=== PATIENT | female | born 1995 | race American Indian/Alaskan Native ===

== ENCOUNTER 2019-02-17 10:45 | Inpatient (IN) | payer BC, MEDICAID ==
[2019-02-17] MEDS ORDERED: NACL 0.9% 1000 ML 1,000 ML IV ONE ×3 (10:51→11:22)
[2019-02-17] MEDS ORDERED: ZOFRAN IV ONE ×2 (11:04→11:22)
[2019-02-17] MEDS ORDERED: DILAUDID IV ONE ×2 (11:23→13:50)
[2019-02-17 11:52] LABS: Amorphous Crystals,Urine Few; Bacteria,Urine 1+ /HPF (Negative); Bilirubin,Urine NEG (Negative); Blood,Urine NEG (Negative); Color,Urine Amber (Yellow); Mucus,Urine 3+ /HPF
--- NOTE | 2019-02-17 11:59 | Emergency Department Report ---
ED Abdominal Pain HPI - General Chief Complaint: Abdominal Pain Stated Complaint: STOMACH PAIN/SWELLING/VOMITTING Time Seen by Provider: 02/17/19 11:04 Source: patient, family, old records reviewed Mode of arrival: Ambulatory Limitations: Other (patient is deaf) - History of Present Illness Initial Comments: 24-year-old female with the small bowel obstruction and perastomal hernia treated with loop ileostomy takedown and small bowel resection with primary anastomosis on January [address] Hurst general surgeon for this hospital with complaints of abdominal distention nausea, and vomiting. 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 Patient has had abdominal distention and progressive worsened for the last 2-3 days. Today she has worsening cramping abdominal abdominal pain rates it 8/10 in intensity and worse with palpation. Today she also developed vomiting. Last bowel movement was yesterday. Decreased by mouth intake reported. No fever. Severity scale (0 -10): 8 - Related Data Home Medications Medication Instructions Recorded Confirmed Last Taken Ibuprofen 600 mg PO Q6HRT PRN 02/17/19 02/17/19 Unknown Previous Rx's Medication Instructions Recorded Last Taken Type Bisacodyl [Dulcolax suppos] 10 mg [place] Q72H PRN #10 supp.rect 01/30/19 Unknown Rx Glycerin Adult 2 gm 1 supp [place] QDAY PRN #30 supp.rect 01/30/19 Unknown Rx Allergies Allergy/AdvReac Type Severity Reaction Status Date / Time No Known Allergies Allergy Verified 02/17/19 10:46 ED Review of Systems ROS: Stated complaint: STOMACH PAIN/SWELLING/VOMITTING Other details as noted in HPI Comment: All other systems reviewed and negative ED Past Medical Hx - Past Medical History Hx Hypertension: No Hx Heart Attack/AMI: No Hx Liver Disease: No Hx Renal Disease: No Hx Seizures: No Hx Asthma: No Hx HIV: No Additional medical history: deaf, reocurring volvulus - Surgical History Additional Surgical History: colostomy x 2 - Social History Smoking Status: Never Smoker Substance Use Type: None - Medications Home Medications: Home Medications Medication Instructions Recorded Confirmed Last Taken Type Bisacodyl [Dulcolax suppos] 10 mg [place] Q72H PRN #10 supp.rect 01/30/19 02/17/19 Unknown Rx Glycerin Adult 2 gm 1 supp [place] QDAY PRN #30 supp.rect 01/30/19 02/17/19 Unknown Rx Ibuprofen 600 mg PO Q6HRT PRN 02/17/19 02/17/19 Unknown History ED Physical Exam - General Limitations: No Limitations - Other Other exam information: General: No limitations, patient is alert in no acute distress Head exam: Atraumatic, normocephalic Eyes exam: Normal appearance, pupils equal reactive to light, extraocular movem ents intact ENT: Moist mucous membrane, normal oropharynx Neck exam: Normal inspection, full range of motion, no meningismus nontender Respiratory exam: Clear to auscultation bilateral, no wheezes, rales, crackles Cardiovascular: Tachycardic regular rhythm Abdomen: Soft, distended abdomen, diminished bowel sounds, right sided ELIDIA drain, Midline Vertical surgical scar, denies tenderness greatest in the lower abdomen Extremity: Full range of motion normal inspection no deformity Back: Normal Inspection, full range of motion, no tenderness Neurologic: Alert, oriented x3, cranial nerves intact, no motor or sensory deficit Psychiatric: normal affect, normal mood Skin: Warm, dry, intact ED Course Vital Signs 02/17/19 02/17/19 02/17/19 10:50 11:20 13:24 Temperature 98.3 F 97.7 F Pulse Rate 120 H 116 H 112 H Respiratory 20 17 23 Rate Blood Pressure 108/77 Blood Pressure 102/65 122/69 [Left] O2 Sat by Pulse 100 95 100 Oximetry - Consultations Consultation #1: 02/17/19 14:58 dr hurst to admit, in ED assessing pt ED Medical Decision Making - Lab Data Result diagrams: 02/17/19 12:04 02/17/19 12:04 Lab Results 02/17/19 02/17/19 02/17/19 Range/Units 11:21 12:04 12:04 WBC 7.6 (4.5-11.0) K/mm3 RBC 4.31 (3.65-5.03) M/mm3 Hgb 13.6 (10.1-14.3) gm/dl Hct 39.4 (30.3-42.9) % MCV 91 (79-97) fl MCH 32 (28-32) pg MCHC 35 H (30-34) % RDW 13.8 (13.2-15.2) % Plt Count 208 (140-440) K/mm3 Lymph % (Auto) 4.3 L (13.4-35.0) % [place] % (Auto) 6.3 (0.0-7.3) % Eos % (Auto) 1.9 (0.0-4.3) % Baso % (Auto) 0.3 (0.0-1.8) % Lymph # 0.3 L (1.2-5.4) K/mm3 [place]owell # 0.5 (0.0-0.8) K/mm3 Eos # 0.1 (0.0-0.4) K/mm3 Baso # 0.0 (0.0-0.1) K/mm3 Seg Neutrophils % 87.2 H (40.0-70.0) % Seg Neutrophils # 6.6 (1.8-7.7) K/mm3 Sodium 134 L (137-145) mmol/L Potassium 4.7 (3.6-5.0) mmol/L Chloride 99.6 (98-107) mmol/L Carbon Dioxide 20 L (22-30) mmol/L Anion Gap 19 mmol/L BUN 8 (7-17) mg/dL Creatinine 0.5 L (0.7-1.2) mg/dL Estimated GFR > 60 ml/min BUN/Creatinine Ratio 16 % Glucose 112 H (65-100) mg/dL Calcium 8.9 (8.4-10.2) mg/dL Magnesium (1.7-2.3) mg/dL Total Bilirubin 1.20 (0.1-1.2) mg/dL AST 16 (5-40) units/L ALT 8 (7-56) units/L Alkaline Phosphatase 57 (35-129) units/L Total Protein 7.4 (6.3-8.2) g/dL Albumin 3.6 L (3.9-5) g/dL Albumin/Globulin Ratio 0.9 % Lipase (13-60) units/L HCG, Qual (Negative) Urine Color [place] (Yellow) Urine Turbidity Cloudy (Clear) Urine pH 5.0 (5.0-7.0) Ur Specific [place] 1.038 H (1.003-1.030) Urine Protein 100 mg/dl (Negative) mg/dL Urine Glucose (UA) Neg (Negative) mg/dL Urine Ketones 20 (Negative) mg/dL Urine Blood Neg (Negative) Urine Nitrite Neg (Negative) Urine Bilirubin Neg (Negative) Urine Urobilinogen 2.0 (<2.0) mg/dL Ur Leukocyte Esterase Sm (Negative) Urine WBC (Auto) 12.0 H (0.0-6.0) /HPF Urine RBC (Auto) 5.0 (0.0-6.0) /HPF U Epithel Cells (Auto) 8.0 (0-13.0) /HPF Urine Bacteria (Auto) 1+ (Negative) /HPF Amorphous Crystals Few Urine Mucus 3+ /HPF Urine HCG, Qual (Negative) 02/17/19 02/17/19 02/17/19 Range/Units 12:04 12:04 12:04 WBC (4.5-11.0) K/mm3 RBC (3.65-5.03) M/mm3 Hgb (10.1-14.3) gm/dl Hct (30.3-42.9) % MCV (79-97) fl MCH (28-32) pg MCHC (30-34) % RDW (13.2-15.2) % Plt Count (140-440) K/mm3 Lymph % (Auto) (13.4-35.0) % [place]cdowell % (Auto) (0.0-7.3) % Eos % (Auto) (0.0-4.3) % Baso % (Auto) (0.0-1.8) % Lymph # (1.2-5.4) K/mm3 [place] # (0.0-0.8) K/mm3 Eos # (0.0-0.4) K/mm3 Baso # (0.0-0.1) K/mm3 Seg Neutrophils % (40.0-70.0) % Seg Neutrophils # (1.8-7.7) K/mm3 Sodium (137-145) mmol/L Potassium (3.6-5.0) mmol/L Chloride (98-107) mmol/L Carbon Dioxide (22-30) mmol/L Anion Gap mmol/L BUN (7-17) mg/dL Creatinine (0.7-1.2) mg/dL Estimated GFR ml/min BUN/Creatinine Ratio % Glucose (65-100) mg/dL Calcium (8.4-10.2) mg/dL Magnesium 1.90 (1.7-2.3) mg/dL Total Bilirubin (0.1-1.2) mg/dL AST (5-40) units/L ALT (7-56) units/L Alkaline Phosphatase (35-129) units/L Total Protein (6.3-8.2) g/dL Albumin (3.9-5) g/dL Albumin/Globulin Ratio % Lipase 32 (13-60) units/L HCG, Qual Negative (Negative) Urine Color (Yellow) Urine Turbidity (Clear) Urine pH (5.0-7.0) Ur Specific [place] (1.003-1.030) Urine Protein (Negative) mg/dL Urine Glucose (UA) (Negative) mg/dL Urine Ketones (Negative) mg/dL Urine Blood (Negative) Urine Nitrite (Negative) Urine Bilirubin (Negative) Urine Urobilinogen (<2.0) mg/dL Ur Leukocyte Esterase (Negative) Urine WBC (Auto) (0.0-6.0) /HPF Urine RBC (Auto) (0.0-6.0) /HPF U Epithel Cells (Auto) (0-13.0) /HPF Urine Bacteria (Auto) (Negative) /HPF Amorphous Crystals Urine Mucus /HPF Urine HCG, Qual (Negative) 02/17/19 Range/Units 12:30 WBC (4.5-11.0) K/mm3 RBC (3.65-5.03) M/mm3 Hgb (10.1-14.3) gm/dl Hct (30.3-42.9) % MCV (79-97) fl MCH (28-32) pg MCHC (30-34) % RDW (13.2-15.2) % Plt Count (140-440) K/mm3 Lymph % (Auto) (13.4-35.0) % [place] % (Auto) (0.0-7.3) % Eos % (Auto) (0.0-4.3) % Baso % (Auto) (0.0-1.8) % Lymph # (1.2-5.4) K/mm3 [place] # (0.0-0.8) K/mm3 Eos # (0.0-0.4) K/mm3 Baso # (0.0-0.1) K/mm3 Seg Neutrophils % (40.0-70.0) % Seg Neutrophils # (1.8-7.7) K/mm3 Sodium (137-145) mmol/L Potassium (3.6-5.0) mmol/L Chloride (98-107) mmol/L Carbon Dioxide (22-30) mmol/L Anion Gap mmol/L BUN (7-17) mg/dL Creatinine (0.7-1.2) mg/dL Estimated GFR ml/min BUN/Creatinine Ratio % Glucose (65-100) mg/dL Calcium (8.4-10.2) mg/dL Magnesium (1.7-2.3) mg/dL Total Bilirubin (0.1-1.2) mg/dL AST (5-40) units/L ALT (7-56) units/L Alkaline Phosphatase (35-129) units/L Total Protein (6.3-8.2) g/dL Albumin (3.9-5) g/dL Albumin/Globulin Ratio % Lipase (13-60) units/L HCG, Qual (Negative) Urine Color (Yellow) Urine Turbidity (Clear) Urine pH (5.0-7.0) Ur Specific [place] (1.003-1.030) Urine Protein (Negative) mg/dL Urine Glucose (UA) (Negative) mg/dL Urine Ketones (Negative) mg/dL Urine Blood (Negative) Urine Nitrite (Negative) Urine Bilirubin (Negative) Urine Urobilinogen (<2.0) mg/dL Ur Leukocyte Esterase (Negative) Urine WBC (Auto) (0.0-6.0) /HPF Urine RBC (Auto) (0.0-6.0) /HPF U Epithel Cells (Auto) (0-13.0) /HPF Urine Bacteria (Auto) (Negative) /HPF Amorphous Crystals Urine Mucus /HPF Urine HCG, Qual Negative (Negative) - Radiology Data Radiology results: report reviewed PROCEDURE: CT ABDOMEN PELVIS W CON, XR ABD SERIES W CXR 1V TECHNIQUE: Computerized axial tomography of the abdomen and pelvis was performed after the IV injection of iodinated nonionic contrast. Coronal and sagittal reconstructed imaging provided. Acute abdominal series. CT DOSE LENGTH PRODUCT: 358.1 mGy-cm. HISTORY: post op sm bowel resection w/anastomosis, pain, COMPARISONS: CT abdomen pelvis January 21, 2019. FINDINGS: ACUTE ABDOMINAL RADIOGRAPH: Lungs are clear. Markedly small bowel distention suggest obstruction. No obvious pneumatosis. No pneumoperitoneum. No air-fluid levels. No suspicious calcifications overlie the renal shadows. Scoliosis. CT ABDOMEN PELVIS: Abdomen: Series 2:72-1 07 demonstrates an abrupt transition point to proximally dilated small bowel loops there is a several of bowel loops which may represent a stricture, partial volvulus or internal hernia market distention of the bowel loops proximal to this transition point.. Fluid stool in the remaining colon down to the rectum. Nearby anastomosis and surgical sutures identified. Takedown of previous right lower quadrant ostomy with postsurgical changes in the right lower quadrant soft tissue identified. Mild mesenteric stranding noted. Moderate free fluid throughout the abdomen and pelvis identified. No obvious pneumatosis or free air at this time. No obvious abscess at this time. Few prominent mesenteric lymph nodes may be reactive. Liver, gallbladder, stomach, spleen, pancreas, and adrenals are unremarkable. Elevated left hemidiaphragm noted. Lung bases are otherwise unremarkable. IVC is unremarkable. No aortic aneurysm or dissection. No periaortic or retroperitoneal mass or adenopathy. RLQ percutaneous catheter crosses midline with the tip in the left lower quadrant. Pelvis: Moderate to marked free fluid in the pelvis. Limited images of the uterus are unremarkable. Bladder: Unremarkable. No wall thickening. There is no pelvic mass or adenopathy. Inguinal regions are unremarkable. Bones: No suspicious osseous lesions on this limited examination of the skeleton. Metastatic disease better evaluated with bone scan. IMPRESSION: * Bowel obstruction. Markedly distended proximal small bowel loops with abrupt transition point near the anastomosis which could represent scar tissue, internal hernia, or a partial volvulus. No pneumatosis or pneumoperitoneum noted at this time. * Mesenteric stranding and moderate free fluid in the abdomen and pelvis. * 02/17/2019 at 1146 PT: I, Mike Colon MD, discussed the findings over the phone with Dr. Hurst - Medical Decision Making Zosyn provided given urine leukocytosis Heart rate improvement with pain control and IV fluids CT suggests recurrent obstruction. Patient to be admitted to surgical service - Differential Diagnosis obstruction, postoperative infection, dehydration, ileus Critical Care Time: No Critical care attestation.: If time is entered above; I have spent that time in minutes in the direct care of this critically ill patient, excluding procedure time. ED Disposition Clinical Impression: Dehydration, Urine WBC increased, History of abdominal surgery Intestinal obstruction Qualifiers: Intestinal obstruction type: other intestinal obstruction Intestinal obstruction extent: partial Qualified Code(s): K56.690 - Other partial intestinal obstruction Disposition: DC-09 OP ADMIT IP TO THIS HOSP Is pt being admited?: Yes Condition: Stable Time of Disposition: 15:00 (DR hurst)
[2019-02-17] MEDS ORDERED: ZOSYN/NS 4.5GM/100ML 4.5 GM/100 ML VIAL IV ONE (12:17)
[2019-02-17 12:25] LABS: Basophils % (Auto) 0.3 % (0.0-1.8); Eosinophils # (Auto) 0.1 K/mm3 (0.0-0.4); Eosinophils % (Auto) 1.9 % (0.0-4.3); Hematocrit 39.4 % (30.3-42.9); Hemoglobin 13.6 gm/dl (10.1-14.3); Lymphocytes # (Auto) 0.3 K/mm3 (1.2-5.4); Lymphocytes % (Auto) 4.3 % (13.4-35.0); Mean Corpuscular HGB Conc 35 % (30-34); Mean Corpuscular Volume 91 fl (79-97); Monocytes # (Auto) 0.5 K/mm3 (0.0-0.8); Monocytes % (Auto) 6.3 % (0.0-7.3); Platelet Count 208 K/mm3 (140-440); Red Blood Count 4.31 M/mm3 (3.65-5.03); Red Cell Distribution Width 13.8 % (13.2-15.2)
[2019-02-17 12:38] LABS: HCG Qualitative,Urine Negative (Negative)
[2019-02-17 12:48] LABS: Albumin 3.6 g/dL (3.9-5); BUN/Creatinine Ratio 16; Blood Urea Nitrogen 8 mg/dL (7-17); Calcium 8.9 mg/dL (8.4-10.2); Hemolysis Index 100
[2019-02-17 13:20] LABS: Alanine Aminotransferase 8 units/L (7-56)
--- NOTE | 2019-02-17 14:29 | Consultation ---
Medications and Allergies Allergies Allergy/AdvReac Type Severity Reaction Status Date / Time No Known Allergies Allergy Verified 02/17/19 10:46 Home Medications Medication Instructions Recorded Confirmed Last Taken Type Bisacodyl [Dulcolax suppos] 10 mg [place] Q72H PRN #10 supp.rect 01/30/19 Unknown Rx Glycerin Adult 2 gm 1 supp [place] QDAY PRN #30 supp.rect 01/30/19 Unknown Rx HYDROcodone/APAP 5-325 [[place] 1 each PO Q6H PRN #20 tablet 01/30/19 Unknown Rx 5-325 mg TAB] Sennosides Tab [Senokot] 8.6 mg PO QHS #30 tablet 01/30/19 Unknown Rx Exam Vital Signs Temp Pulse Resp BP Pulse Ox 98.3 F 120 H 20 108/77 100 02/17/19 10:50 02/17/19 10:50 02/17/19 10:50 02/17/19 10:50 02/17/19 10:50 Results - Labs 02/17/19 12:04 02/17/19 12:04 Abnormal lab results 02/17/19 02/17/19 02/17/19 Range/Units 11:21 12:04 12:04 MCHC 35 H (30-34) % Lymph % (Auto) 4.3 L (13.4-35.0) % Lymph # 0.3 L (1.2-5.4) K/mm3 Seg Neutrophils % 87.2 H (40.0-70.0) % Sodium 134 L (137-145) mmol/L Carbon Dioxide 20 L (22-30) mmol/L Creatinine 0.5 L (0.7-1.2) mg/dL Glucose 112 H (65-100) mg/dL Albumin 3.6 L (3.9-5) g/dL Ur Specific [place] 1.038 H (1.003-1.030) Urine WBC (Auto) 12.0 H (0.0-6.0) /HPF Diabetes panel 02/17/19 Range/Units 12:04 Sodium 134 L (137-145) mmol/L Potassium 4.7 (3.6-5.0) mmol/L Chloride 99.6 (98-107) mmol/L Carbon Dioxide 20 L (22-30) mmol/L BUN 8 (7-17) mg/dL Creatinine 0.5 L (0.7-1.2) mg/dL Glucose 112 H (65-100) mg/dL Calcium 8.9 (8.4-10.2) mg/dL AST 16 (5-40) units/L ALT 8 (7-56) units/L Alkaline Phosphatase 57 (35-129) units/L Total Protein 7.4 (6.3-8.2) g/dL Albumin 3.6 L (3.9-5) g/dL Calcium panel 02/17/19 Range/Units 12:04 Calcium 8.9 (8.4-10.2) mg/dL Albumin 3.6 L (3.9-5) g/dL Pituitary panel 02/17/19 Range/Units 12:04 Sodium 134 L (137-145) mmol/L Potassium 4.7 (3.6-5.0) mmol/L Chloride 99.6 (98-107) mmol/L Carbon Dioxide 20 L (22-30) mmol/L BUN 8 (7-17) mg/dL Creatinine 0.5 L (0.7-1.2) mg/dL Glucose 112 H (65-100) mg/dL Calcium 8.9 (8.4-10.2) mg/dL Adrenal panel 02/17/19 Range/Units 12:04 Sodium 134 L (137-145) mmol/L Potassium 4.7 (3.6-5.0) mmol/L Chloride 99.6 (98-107) mmol/L Carbon Dioxide 20 L (22-30) mmol/L BUN 8 (7-17) mg/dL Creatinine 0.5 L (0.7-1.2) mg/dL Glucose 112 H (65-100) mg/dL Calcium 8.9 (8.4-10.2) mg/dL Total Bilirubin 1.20 (0.1-1.2) mg/dL AST 16 (5-40) units/L ALT 8 (7-56) units/L Alkaline Phosphatase 57 (35-129) units/L Total Protein 7.4 (6.3-8.2) g/dL Albumin 3.6 L (3.9-5) g/dL
--- NOTE | 2019-02-17 14:56 | XRay Report ---
PROCEDURE: CT ABDOMEN PELVIS W CON, XR ABD SERIES W CXR 1V TECHNIQUE: Computerized axial tomography of the abdomen and pelvis was performed after the IV injecti on of iodinated nonionic contrast. Coronal and sagittal reconstructed imaging provided. Acute abdomin al series. CT DOSE LENGTH PRODUCT: 358.1 mGy-cm. HISTORY: post op sm bowel resection w/anastomosis, pain, COMPARISONS: CT abdomen pelvis January 21, 2019. FINDINGS: ACUTE ABDOMINAL RADIOGRAPH: Lungs are clear. Markedly small bowel distention suggest obstruction. No obvious pneumatosis. No pneumoperitoneum. No air-fluid levels. No suspicious calcifications overlie the renal shadows. Scoliosis. CT ABDOMEN PELVIS: Abdomen: Series 2:72-1 07 demonstrates an abrupt transition point to proximally dilated small bowel loops ther e is a several of bowel loops which may represent a stricture, partial volvulus or internal hernia ma rket distention of the bowel loops proximal to this transition point.. Fluid stool in the remaining c olon down to the rectum. Nearby anastomosis and surgical sutures identified. Takedown of previous rig ht lower quadrant ostomy with postsurgical changes in the right lower quadrant soft tissue identified . Mild mesenteric stranding noted. Moderate free fluid throughout the abdomen and pelvis identified. No obvious pneumatosis or free air at this time. No obvious abscess at this time. Few prominent mesente ruth lymph nodes may be reactive. Liver, gallbladder, stomach, spleen, pancreas, and adrenals are unremarkable. Elevated left hemidiaphragm noted. Lung bases are otherwise unremarkable. IVC is unremarkable. No aortic aneurysm or dissection. No periaortic or retroperitoneal mass or adenopathy. RLQ percutaneous catheter crosses midline with the tip in the left lower quadrant. Pelvis: Moderate to marked free fluid in the pelvis. Limited images of the uterus are unremarkable. Bladder: Unremarkable. No wall thickening. There is no pelvic mass or adenopathy. Inguinal regions are unremarkable. Bones: No suspicious osseous lesions on this limited examination of the skeleton. Metastatic disease better evaluated with bone scan. IMPRESSION: * Bowel obstruction. Markedly distended proximal small bowel loops with abrupt transition point near the anastomosis which could represent scar tissue, internal hernia, or a partial volvulus. No pneuma tosis or pneumoperitoneum noted at this time. * Mesenteric stranding and moderate free fluid in the abdomen and pelvis. * 02/17/2019 at 1146 PT: I, Mike Colon MD, discussed the findings over the phone with Dr. Bowden This document is electronically signed by Mike Colon MD., February 17 2019 02:54:17 PM ET
[2019-02-17] MEDS ORDERED: NACL 0.9% 1000 ML 1,000 ML IV SCH (15:00)
[2019-02-17] MEDS ORDERED: SODIUM CHLORIDE FLUSH SYRINGE 10 ML IV PRN (15:00)
[2019-02-17] MEDS ORDERED: TORADOL ONE (15:48)
[2019-02-17] MEDS ORDERED: FLEET PR ONE ×2 (15:48→16:00)
[2019-02-17] MEDS: TORADOL IV SCH ×2 (15:56→20:49)
--- NOTE | 2019-02-17 16:09 | History and Physical Report ---
History of Present Illness Date of examination: 02/17/19 Date of admission: 02/17/19 15:00 Chief complaint: abdominal distention and pain History of present illness: 24yo F was well-known for services we recently took care of her in January of this year. She presented with a bowel obstruction that ultimately ended up being intussusception of the ileostomy. She had surgery on January 23 and had the ileostomy taken down any primary anastomosis was created. She was discharged without complications. Note, we were following abdominal x-rays and her last one was January 27. At that time, she continued to have dilated small bowel. However, clinically she was doing very well. She had no complaints of abdominal bloating or pain. She was tolerating a diet. And, she was having bowel function on a regular basis. She returns today with acute distention of the abdomen and cessation of bowel movements. Mom reports that she has been having daily bowel movements up until today. They have been using suppositories and Colace. They did not follow the bowel regimen that we had outlined prior to discharge. The patient was slowly increasing in distention but they did not notify anyone. Finally, today she had a sudden worsening of the distention and decided to come in for evaluation. Her nausea is minimal at this point. Pain is tolerable. She is having more back pain than abdominal pain. She just went to the bathroom in the emergency department and passed flatus. Past History Past Medical History: other (recurrent volvulus and deaf from ) Past Surgical History: bowel surgery (multiple abdominal surgeries with ostomy creation. Ileostomy takedown - 01/23/19) Social history: denies: smoking, alcohol abuse Family history: no significant family history Medications and Allergies Allergies Allergy/AdvReac Type Severity Reaction Status Date / Time No Known Allergies Allergy Verified 02/17/19 10:46 Home Medications Medication Instructions Recorded Confirmed Last Taken Type Bisacodyl [Dulcolax suppos] 10 mg MD Q72H PRN #10 supp.rect 01/30/19 02/17/19 Unknown Rx Glycerin Adult 2 gm 1 supp MD QDAY PRN #30 supp.rect 01/30/19 02/17/19 Unknown R x Ibuprofen 600 mg PO Q6HRT PRN 02/17/19 02/17/19 Unknown History Active Meds: Active Medications Enoxaparin Sodium (Lovenox) 40 mg SUB-Q QDAY@2200 [facility] Dextrose/Sodium Chloride (D5ns) 1,000 mls @ 125 mls/hr IV DIRECT [facility] Ketorolac Tromethamine (Toradol) 15 mg IV Q6H [facility] Stop: 02/22/19 14:59 Last Admin: 02/17/19 15:56 Dose: 15 mg Documented by: Morphine Sulfate (Morphine) 2 mg IV Q4H PRN PRN Reason: Pain, Moderate (4-6) Ondansetron HCl (Zofran) 4 mg IV Q6H PRN PRN Reason: Nausea And Vomiting Sodium Chloride (Sodium Chloride Flush Syringe 10 Ml) 10 ml IV BID [facility] Sodium Chloride (Sodium Chloride Flush Syringe 10 Ml) 10 ml IV PRN PRN PRN Reason: LINE FLUSH Review of Systems - Constitutional no fever, no chills, no chronic pain - Cardiovascular shortness of breath, no chest pain - Respiratory cough - Gastrointestinal abdominal pain, nausea (mild), change in bowel habits, dyspepsia/bloating, no vomiting, no hematemesis, no coffee ground emesis, no BRBPR, no melena, no hematochezia - Muskuloskeletal low back pain - Integumentary no redness, no sores, no wounds Exam Vital Signs Temp Pulse Resp BP Pulse Ox 98.3 F 120 H 20 108/77 100 02/17/19 10:50 02/17/19 10:50 02/17/19 10:50 02/17/19 10:50 02/17/19 10:50 - General physical appearance Positive: no distress, no pain, other (appears tired) - Eyes Positive: normal occular movement - Respiratory Positive: normal expansion, normal respiratory effort, clear to auscultation - Cardiovascular Rhythm: regular (tachy) - Abdomen Abdomen: Present: soft, tender (mild. no pelvic shake tenderness), bowel sounds hypoactive, distended, surgical scars, other (ELIDIA with minimal serous fluid). Ab sent: guarding, rigid - Integumentary no rash, no growths, no abnormal pigmentation - Neurologic Neurologic: alert and oriented to time, place and person, other (deaf) - Psychiatric Psychiatric: appropriate mood/affect, cooperative Results - Labs 02/17/19 12:04 02/17/19 12:04 Abnormal lab results 02/17/19 02/17/19 02/17/19 Range/Units 11:21 12:04 12:04 MCHC 35 H (30-34) % Lymph % (Auto) 4.3 L (13.4-35.0) % Lymph # 0.3 L (1.2-5.4) K/mm3 Seg Neutrophils % 87.2 H (40.0-70.0) % Sodium 134 L (137-145) mmol/L Carbon Dioxide 20 L (22-30) mmol/L Creatinine 0.5 L (0.7-1.2) mg/dL Glucose 112 H (65-100) mg/dL Albumin 3.6 L (3.9-5) g/dL Ur Specific [place] 1.038 H (1.003-1.030) Urine WBC (Auto) 12.0 H (0.0-6.0) /HPF Diabetes panel 02/17/19 Range/Units 12:04 Sodium 134 L (137-145) mmol/L Potassium 4.7 (3.6-5.0) mmol/L Chloride 99.6 (98-107) mmol/L Carbon Dioxide 20 L (22-30) mmol/L BUN 8 (7-17) mg/dL Creatinine 0.5 L (0.7-1.2) mg/dL Glucose 112 H (65-100) mg/dL Calcium 8.9 (8.4-10.2) mg/dL AST 16 (5-40) units/L ALT 8 (7-56) units/L Alkaline Phosphatase 57 (35-129) units/L Total Protein 7.4 (6.3-8.2) g/dL Albumin 3.6 L (3.9-5) g/dL Calcium panel 02/17/19 Range/Units 12:04 Calcium 8.9 (8.4-10.2) mg/dL Albumin 3.6 L (3.9-5) g/dL Pituitary panel 02/17/19 Range/Units 12:04 Sodium 134 L (137-145) mmol/L Potassium 4.7 (3.6-5.0) mmol/L Chloride 99.6 (98-107) mmol/L Carbon Dioxide 20 L (22-30) mmol/L BUN 8 (7-17) mg/dL Creatinine 0.5 L (0.7-1.2) mg/dL Glucose 112 H (65-100) mg/dL Calcium 8.9 (8.4-10.2) mg/dL Adrenal panel 02/17/19 Range/Units 12:04 Sodium 134 L (137-145) mmol/L Potassium 4.7 (3.6-5.0) mmol/L Chloride 99.6 (98-107) mmol/L Carbon Dioxide 20 L (22-30) mmol/L BUN 8 (7-17) mg/dL Creatinine 0.5 L (0.7-1.2) mg/dL Glucose 112 H (65-100) mg/dL Calcium 8.9 (8.4-10.2) mg/dL Total Bilirubin 1.20 (0.1-1.2) mg/dL AST 16 (5-40) units/L ALT 8 (7-56) units/L Alkaline Phosphatase 57 (35-129) units/L Total Protein 7.4 (6.3-8.2) g/dL Albumin 3.6 L (3.9-5) g/dL - Imaging Abdominal x-ray: report reviewed, image reviewed CT scan - abdomen: report reviewed, image reviewed CT scan - pelvis: report reviewed, image reviewed Assessment and Plan - Patient Problems (1) Intestinal obstruction Current Visit: Yes Status: Acute Qualifiers: Intestinal obstruction type: other intestinal obstruction Intestinal obstruction extent: partial Qualified Code(s): K56.690 - Other partial intestinal obstruction Plan to address problem: Pt stable. Patient does not have an acute abdomen at this time. Her overall situation is a bit complicated. She clearly has had an acute worsening of her chronic intestinal dilatation. X-ray from January 27 show significant dilatation of her small intestine however at that time she was having regular bowel function and tolerating a diet. This was probably a reflection of the chronic dysfunction of her intestines. She had been worked-up for bowel dysfunction in [place], but no cause was found. I discussed the CT findings with the radiologist. He feels that there is an abrupt transition proximal to where the anastomosis was done at our surgery. As she just passed flatus in the emergency department, we may be dealing with a partial blockage. Also, as she is only a few weeks out from surgery, this is the time of maximum inflammation in the abdomen. She is at highest risk for bowel injury if we were to do surgery. I explained to the mother that she as stable, her labs are normal, she has minimal pain, we will begin with conservative management. However, if something should change, then we will not hesitate and we will proceed to surgery if indicated. Plan: 1) admitted to surgical floor 2) keep NPO 3) resuscitate with IV fluids 4) order fleets enema 5) order toradol for pain 6) lovenox for DVT prophylaxis 7) ambulate 8) minimize narcotic use. 9) XR in AM. time=60min
[2019-02-17] MEDS: D5NS 1,000 ML IV SCH (17:35)
[2019-02-17] MEDS: MORPHINE IV PRN (17:38)
[2019-02-17] MEDS: LOVENOX SUB-Q SCH (22:19)
[2019-02-18] MEDS: MORPHINE IV PRN ×2 (00:25→11:21)
[2019-02-18] MEDS: D5NS 1,000 ML IV SCH ×2 (00:32→08:40)
[2019-02-18 04:49] LABS: Basophils % (Auto) 0.3 % (0.0-1.8); Eosinophils # (Auto) 0.1 K/mm3 (0.0-0.4); Hematocrit 37.1 % (30.3-42.9); Hemoglobin 12.4 gm/dl (10.1-14.3); Lymphocytes # (Auto) 0.3 K/mm3 (1.2-5.4); Mean Corpuscular HGB Conc 33 % (30-34); Mean Corpuscular Volume 92 fl (79-97); Monocytes # (Auto) 0.4 K/mm3 (0.0-0.8); Monocytes % (Auto) 8.3 % (0.0-7.3); Platelet Count 232 K/mm3 (140-440); Red Blood Count 4.04 M/mm3 (3.65-5.03); Red Cell Distribution Width 13.8 % (13.2-15.2)
[2019-02-18 04:57] LABS: BUN/Creatinine Ratio 12; Blood Urea Nitrogen 7 mg/dL (7-17); Calcium 8.2 mg/dL (8.4-10.2); Hemolysis Index 5
[2019-02-18] MEDS: TORADOL IV SCH ×4 (08:41→23:06)
[2019-02-18] MEDS: SODIUM CHLORIDE FLUSH SYRINGE 10 ML IV SCH ×4 (08:41→23:01)
--- NOTE | 2019-02-18 09:18 | XRay Report ---
EXAM: XR ABDOMEN 2V HISTORY: reassess bowel dilatation TECHNIQUE: Portable supine views (2 images) dated 02/18/2019 at 8:44 AM COMPARISON: Abdomen x-ray series dated 02/17/2019. FINDINGS: There are severely dilated, air-filled, large bowel loops (up to 12 cm) within the abdomen and pelvis , with absence of air within the rectum; DDX includes high-grade distal LBO in the appropriate clinic al setting; DDX includes severe ileus. Correlation with CT may be beneficial to rule out an obstructi ng mass in the region of the rectum or sigmoid colon. A percutaneous peritoneal catheter is noted with the distal tip in the left lower quadrant. There is no gross organomegaly, free intraperitoneal air, or suspicious calcifications seen. The visualized b malgorzata structures are within normal limits. IMPRESSION: 1. Severely dilated, air-filled, large bowel loops (up to 12 cm) within the abdomen and pelvis, with absence of air within the rectum; DDX includes high-grade distal LBO in the appropriate clinical set ting; DDX includes severe ileus. Correlation with CT may be beneficial to rule out an obstructing mas s in the region of the rectum or sigmoid colon. 2. No gross organomegaly, free intraperitoneal air, or suspicious calcifications seen. This document is electronically signed by Aleta Phillips MD., February 18 2019 09:16:35 AM ET
--- NOTE | 2019-02-18 09:49 | Progress Note ---
Assessment and Plan - Patient Problems (1) Intestinal obstruction Current Visit: Yes Status: Acute Qualifiers: Intestinal obstruction type: other intestinal obstruction Intestinal obstruction extent: partial Qualified Code(s): K56.690 - Other partial intestinal obstruction Plan to address problem: Pt stable. Clinically she is improved. This is the same course we had after her surgery. She is reporting that she passed a lot of gas. Her abdomen is much softer which would be consistent with this. I think she most likely has some underlying bowel dysfunction. We will eventually evaluate this with a small bowel follow-through. Plan: 1) continue ambulation 2) trial of clear liquids 3) change to maintenance IV fluids 4) fleets enema today 5) try scheduled Reglan Subjective Date of service: 02/18/19 Patient Reports: Positive: no new complaints, feels better, pain is less, flatus, bowel movement. Negative: nausea, vomiting Objective Vital Signs - 12hr 02/18/19 02/18/19 02/18/19 00:25 00:55 04:31 Temperature 100.8 F H Pulse Rate 60 Respiratory 18 18 18 Rate Blood Pressure 93/61 Blood Pressure [Left] O2 Sat by Pulse 99 Oximetry 02/18/19 02/18/19 02/18/19 07:25 08:41 09:11 Temperature 99.5 F Pulse Rate 116 H Respiratory 18 20 18 Rate Blood Pressure Blood Pressure 89/53 [Left] O2 Sat by Pulse 97 Oximetry - General physical appearance no distress, no pain, other (looks more comfortable) - Respiratory normal expansion, normal respiratory effort - Abdomen soft, not tender, bowel sounds hypoactive (more active today), distended (less so today), not guarding, not rigid, other (ELIDIA removed easily. Old ileostomy site clean with good granulation tissue.) - Integumentary no rash, no growths, no abnormal pigmentation - Labs 02/18/19 04:05 02/18/19 04:05 Diabetes panel 02/17/19 02/18/19 Range/Units 12:04 04:05 Sodium 134 L 140 (137-145) mmol/L Potassium 4.7 3.7 D (3.6-5.0) mmol/L Chloride 99.6 107.8 H (98-107) mmol/L Carbon Dioxide 20 L 22 (22-30) mmol/L BUN 8 7 (7-17) mg/dL Creatinine 0.5 L 0.6 L (0.7-1.2) mg/dL Glucose 112 H 121 H (65-100) mg/dL Calcium 8.9 8.2 L (8.4-10.2) mg/dL AST 16 (5-40) units/L ALT 8 (7-56) units/L Alkaline Phosphatase 57 (35-129) units/L Total Protein 7.4 (6.3-8.2) g/dL Albumin 3.6 L (3.9-5) g/dL Calcium panel 02/17/19 02/18/19 Range/Units 12:04 04:05 Calcium 8.9 8.2 L (8.4-10.2) mg/dL Albumin 3.6 L (3.9-5) g/dL Pituitary panel 02/17/19 02/18/19 Range/Units 12:04 04:05 Sodium 134 L 140 (137-145) mmol/L Potassium 4.7 3.7 D (3.6-5.0) mmol/L Chloride 99.6 107.8 H (98-107) mmol/L Carbon Dioxide 20 L 22 (22-30) mmol/L BUN 8 7 (7-17) mg/dL Creatinine 0.5 L 0.6 L (0.7-1.2) mg/dL Glucose 112 H 121 H (65-100) mg/dL Calcium 8.9 8.2 L (8.4-10.2) mg/dL Adrenal panel 02/17/19 02/18/19 Range/Units 12:04 04:05 Sodium 134 L 140 (137-145) mmol/L Potassium 4.7 3.7 D (3.6-5.0) mmol/L Chloride 99.6 107.8 H (98-107) mmol/L Carbon Dioxide 20 L 22 (22-30) mmol/L BUN 8 7 (7-17) mg/dL Creatinine 0.5 L 0.6 L (0.7-1.2) mg/dL Glucose 112 H 121 H (65-100) mg/dL Calcium 8.9 8.2 L (8.4-10.2) mg/dL Total Bilirubin 1.20 (0.1-1.2) mg/dL AST 16 (5-40) units/L ALT 8 (7-56) units/L Alkaline Phosphatase 57 (35-129) units/L Total Protein 7.4 (6.3-8.2) g/dL Albumin 3.6 L (3.9-5) g/dL
[2019-02-18] MEDS ORDERED: FLEET MINERAL OIL PR ONE (11:00)
[2019-02-18] MEDS: D5W/0.45% NACL/KCL 20 MEQ 20 MEQ/1,000 ML BAG IV SCH ×2 (11:12→20:47)
[2019-02-18] MEDS: REGLAN IV SCH ×3 (11:13→23:00)
[2019-02-18] MEDS: LOVENOX SUB-Q SCH (21:01)
[2019-02-18] MEDS: TYLENOL PR PRN (23:02)
[2019-02-19] MEDS: TORADOL IV SCH ×4 (03:10→21:39)
[2019-02-19 05:27] LABS: BUN/Creatinine Ratio 20; Blood Urea Nitrogen 10 mg/dL (7-17); Calcium 8.4 mg/dL (8.4-10.2); Hemolysis Index 7
[2019-02-19] MEDS: D5W/0.45% NACL/KCL 20 MEQ 20 MEQ/1,000 ML BAG IV SCH ×2 (06:20→20:06)
[2019-02-19] MEDS: REGLAN IV SCH ×4 (07:29→22:52)
--- NOTE | 2019-02-19 08:52 | Progress Note ---
Assessment and Plan - Patient Problems (1) Intestinal obstruction Current Visit: Yes Status: Acute Qualifiers: Intestinal obstruction type: other intestinal obstruction Intestinal obstruction extent: partial Qualified Code(s): K56.690 - Other partial intestinal obstruction Plan to address problem: Pt stable. She is more distended today. She has agreed to NGT placement. Need to replace Phos today. If she does not improve with NGT decompression, may ultimately need to explore abdomen. She is aware. Plan: 1) continue ambulation 2) decrease to ice chips and sips of clears 3) increase IVF to 125cc/hr 4) Place NGT Subjective Date of service: 02/19/19 Patient Reports: Positive: tolerating liquids well, flatus (minimal), bowel movement (minimal), other (a little more bloated today). Negative: nausea, vomiting Objective Vital Signs - 12hr 02/19/19 02/19/19 06:13 07:57 Temperature 97.8 F Pulse Rate 96 H 103 H Respiratory 18 Rate Blood Pressure 106/73 [Left] O2 Sat by Pulse 99 Oximetry - General physical appearance no distress, no pain, other (does not look as comfortable as yesterday) - Eyes normal occular movement - Respiratory normal expansion, normal respiratory effort - Abdomen soft, tender (minimal), bowel sounds hypoactive, distended (increased today), not guarding, not rigid - Integumentary no rash, no growths, no abnormal pigmentation - Labs 02/18/19 04:05 02/19/19 04:08 Diabetes panel 02/19/19 Range/Units 04:08 Sodium 138 (137-145) mmol/L Potassium 3.8 (3.6-5.0) mmol/L Chloride 105.9 (98-107) mmol/L Carbon Dioxide 21 L (22-30) mmol/L BUN 10 (7-17) mg/dL Creatinine 0.5 L (0.7-1.2) mg/dL Glucose 110 H (65-100) mg/dL Calcium 8.4 (8.4-10.2) mg/dL Calcium panel 02/19/19 Range/Units 04:08 Calcium 8.4 (8.4-10.2) mg/dL Phosphorus 2.20 L (2.5-4.5) mg/dL Pituitary panel 02/19/19 Range/Units 04:08 Sodium 138 (137-145) mmol/L Potassium 3.8 (3.6-5.0) mmol/L Chloride 105.9 (98-107) mmol/L Carbon Dioxide 21 L (22-30) mmol/L BUN 10 (7-17) mg/dL Creatinine 0.5 L (0.7-1.2) mg/dL Glucose 110 H (65-100) mg/dL Calcium 8.4 (8.4-10.2) mg/dL Adrenal panel 02/19/19 Range/Units 04:08 Sodium 138 (137-145) mmol/L Potassium 3.8 (3.6-5.0) mmol/L Chloride 105.9 (98-107) mmol/L Carbon Dioxide 21 L (22-30) mmol/L BUN 10 (7-17) mg/dL Creatinine 0.5 L (0.7-1.2) mg/dL Glucose 110 H (65-100) mg/dL Calcium 8.4 (8.4-10.2) mg/dL
[2019-02-19] MEDS ORDERED: SODIUM PHOSPHATE 30 MMOL in NACL 0.9% 500 ML 500 ML IV ONE (09:00)
[2019-02-19] MEDS: SODIUM CHLORIDE FLUSH SYRINGE 10 ML IV SCH (11:15)
--- NOTE | 2019-02-19 14:27 | Event Note ---
Date: 02/19/19 Routine re-check. NGT in place. clear drainage. Abd much softer. Pt reports feeling better. Smiling. Spoke with mother. Gave update on current state. Discussed that if the conservative measures don't work, then we will have to consider surgery. I also asked her to try again to get the medical records from [place] so that we can see what work-up has already been done.
[2019-02-19] MEDS: TYLENOL PR PRN (20:26)
[2019-02-19] MEDS: ZOFRAN IV PRN (20:28)
[2019-02-19] MEDS: LOVENOX SUB-Q SCH (21:38)
[2019-02-20] MEDS: SODIUM CHLORIDE FLUSH SYRINGE 10 ML IV SCH ×3 (00:53→21:20)
[2019-02-20] MEDS: TORADOL IV SCH ×5 (03:54→21:12)
[2019-02-20] MEDS: D5W/0.45% NACL/KCL 20 MEQ 20 MEQ/1,000 ML BAG IV SCH ×2 (05:56→14:21)
[2019-02-20 07:29] LABS: BUN/Creatinine Ratio 20; Blood Urea Nitrogen 10 mg/dL (7-17); Hemolysis Index 48
[2019-02-20] MEDS: REGLAN IV SCH ×4 (11:00→21:19)
--- NOTE | 2019-02-20 11:48 | Progress Note ---
Assessment and Plan - Patient Problems (1) Intestinal obstruction Current Visit: Yes Status: Acute Qualifiers: Intestinal obstruction type: other intestinal obstruction Intestinal obstruction extent: partial Qualified Code(s): K56.690 - Other partial intestinal obstruction Plan to address problem: Pt stable. HD#4. She is much less distended today. NGT has helped. Will continue until abdomen is back to baseline. Metabolic acidosis most likely due to hyperchloremia. Plan: 1) continue ambulation 2) decrease IVF to 100cc/hr 3) SBFT when abdomen size is back to baseline. 4) Continue NGT until SBFT is completed 5) May need to order PICC/TPN if unable to start feeds soon. Subjective Date of service: 02/20/19 Patient Reports: Positive: feels better, pain is less, flatus, bowel movement, other (stomach is less bloated). Negative: nausea, vomiting Objective Vital Signs - 12hr 02/20/19 02/20/19 02/20/19 06:38 07:00 11:11 Temperature 98.8 F Pulse Rate 97 H 103 H Respiratory 18 17 Rate Blood Pressure 108/70 [Left] O2 Sat by Pulse 98 Oximetry - General physical appearance no distress, no pain, other (looks tired, but not ill) - Eyes normal occular movement - ENT other (NGT with clear drainage) - Respiratory normal expansion, normal respiratory effort - Abdomen soft, not tender, bowel sounds hypoactive, distended (much less so today), not guarding, not rigid - Integumentary no rash, no growths, no abnormal pigmentation - Labs 02/18/19 04:05 02/20/19 06:44 Diabetes panel 02/20/19 Range/Units 06:44 Sodium 140 (137-145) mmol/L Potassium 3.7 (3.6-5.0) mmol/L Chloride 108.2 H (98-107) mmol/L Carbon Dioxide 20 L (22-30) mmol/L BUN 10 (7-17) mg/dL Creatinine 0.5 L (0.7-1.2) mg/dL Glucose 108 H (65-100) mg/dL Calcium 8.0 L (8.4-10.2) mg/dL Calcium panel 02/20/19 Range/Units 06:44 Calcium 8.0 L (8.4-10.2) mg/dL Phosphorus 3.20 D (2.5-4.5) mg/dL Pituitary panel 02/20/19 Range/Units 06:44 Sodium 140 (137-145) mmol/L Potassium 3.7 (3.6-5.0) mmol/L Chloride 108.2 H (98-107) mmol/L Carbon Dioxide 20 L (22-30) mmol/L BUN 10 (7-17) mg/dL Creatinine 0.5 L (0.7-1.2) mg/dL Glucose 108 H (65-100) mg/dL Calcium 8.0 L (8.4-10.2) mg/dL Adrenal panel 02/20/19 Range/Units 06:44 Sodium 140 (137-145) mmol/L Potassium 3.7 (3.6-5.0) mmol/L Chloride 108.2 H (98-107) mmol/L Carbon Dioxide 20 L (22-30) mmol/L BUN 10 (7-17) mg/dL Creatinine 0.5 L (0.7-1.2) mg/dL Glucose 108 H (65-100) mg/dL Calcium 8.0 L (8.4-10.2) mg/dL
[2019-02-20] MEDS: PEPCID IV SCH (14:40)
[2019-02-20] MEDS: TYLENOL PR PRN (20:50)
[2019-02-20] MEDS: LOVENOX SUB-Q SCH (21:18)
[2019-02-21] MEDS: D5W/0.45% NACL/KCL 20 MEQ 20 MEQ/1,000 ML BAG IV SCH (00:20)
[2019-02-21] MEDS: TORADOL IV SCH ×3 (04:18→15:34)
[2019-02-21] MEDS: REGLAN IV SCH ×4 (08:38→23:00)
[2019-02-21] MEDS: MORPHINE IV PRN (09:24)
[2019-02-21] MEDS: SODIUM CHLORIDE FLUSH SYRINGE 10 ML IV SCH ×2 (09:28→23:07)
[2019-02-21] MEDS: PEPCID IV SCH (09:31)
--- NOTE | 2019-02-21 10:47 | Progress Note ---
Assessment and Plan - Patient Problems (1) Intestinal obstruction Current Visit: Yes Status: Acute Qualifiers: Intestinal obstruction type: other intestinal obstruction Intestinal obstruction extent: partial Qualified Code(s): K56.690 - Other partial intestinal obstruction Plan to address problem: Pt stable. HD#5. Essentially unchanged. Passing small amounts of flatus and stool. Plan: 1) continue ambulation 2) continue IVF at current level 3) Will go ahead and get SBFT now to verify partial obstruction vs bowel dysfunction 4) Continue NGT until SBFT is completed and distention resolves 5) Will order PICC and TPN today. Does not appear that we will be able to feed her anytime soon. Pt aware of plan. Everything written out for her. Subjective Date of service: 02/21/19 Patient Reports: Positive: no new complaints, feels better, flatus, bowel movement, other (still bloated). Negative: nausea, vomiting Objective Vital Signs - 12hr 02/20/19 02/21/19 02/21/19 23:56 04:20 07:22 Temperature 99.0 F 99.0 F 97.7 F Pulse Rate 121 H 112 H 105 H Respiratory 20 20 27 H Rate Blood Pressure 108/74 111/71 112/68 O2 Sat by Pulse 97 96 98 Oximetry 02/21/19 09:24 Temperature Pulse Rate Respiratory 30 H Rate Blood Pressure O2 Sat by Pulse Oximetry - General physical appearance no distress, no pain, other (looks tired) - Eyes normal occular movement - Respiratory normal expansion, normal respiratory effort - Abdomen soft, not tender, bowel sounds hypoactive, distended (much softer), not gua rding, not rigid - Integumentary no rash, no growths, no abnormal pigmentation - Labs 02/18/19 04:05 02/20/19 06:44
[2019-02-21] MEDS ORDERED: HumaLOG SUB-Q SCH (12:00)
[2019-02-21] MEDS: HumuLIN R SUB-Q SCH ×2 (12:50→18:52)
[2019-02-21] MEDS: TYLENOL PR PRN (17:12)
--- NOTE | 2019-02-21 17:25 | XRay Report ---
PROCEDURE: XR CHEST 1V AP HISTORY: PICC line placement FINDINGS: Single frontal view of the chest was acquired. There is a left-sided PICC line with its tip in the right atrium. There is no pneumothorax. There is a nasogastric tube which terminates in the g astric body. There is some left basilar atelectasis but otherwise the lungs appear clear. The colon is air-filled very distended consistent with ileus, similar to abdominal x-rays of February 18 . IMPRESSION: The left-sided PICC line terminates in the right atrium This document is electronically signed by Mango Shafer MD., February 21 2019 05:23:54 PM ET
[2019-02-21] MEDS ORDERED: TPN ADULT 2,016 ML IV SCH (20:00)
--- NOTE | 2019-02-21 21:26 | XRay Report ---
PROCEDURE: XR CHEST 1V AP TECHNIQUE: Chest radiograph single view. HISTORY: picc line placement COMPARISONS: 02/21/2019 . FINDINGS: Heart: Normal. Mediastinum/Vessels: Normal. Lungs/Pleural space: Normal. Bony thorax: No acute osseous abnormality. Life support devices: Nasogastric tube is in the stomach. Left PICC line tip has been retracted into the superior vena cava. Diffusely distended colonic loops. IMPRESSION: Left PICC line tip has been retracted into the superior vena cava. This document is electronically signed by Geetha Davis MD., February 21 2019 09:24:04 PM ET
[2019-02-21] MEDS: LOVENOX SUB-Q SCH (23:00)
[2019-02-22] MEDS: TYLENOL PR PRN (00:38)
[2019-02-22 06:14] LABS: Basophils % (Auto) 0.3 % (0.0-1.8); Eosinophils % (Auto) 0.2 % (0.0-4.3); Hematocrit 31.8 % (30.3-42.9); Hemoglobin 10.7 gm/dl (10.1-14.3); Lymphocytes # (Auto) 0.6 K/mm3 (1.2-5.4); Lymphocytes % (Auto) 6.4 % (13.4-35.0); Mean Corpuscular HGB Conc 34 % (30-34); Mean Corpuscular Volume 90 fl (79-97); Monocytes # (Auto) 1.1 K/mm3 (0.0-0.8); Monocytes % (Auto) 11.9 % (0.0-7.3); Platelet Count 287 K/mm3 (140-440); Red Blood Count 3.53 M/mm3 (3.65-5.03); Red Cell Distribution Width 13.9 % (13.2-15.2)
[2019-02-22] MEDS: HumuLIN R SUB-Q SCH ×3 (06:15→17:24)
[2019-02-22 07:12] LABS: Albumin 2.8 g/dL (3.9-5); BUN/Creatinine Ratio 24; Blood Urea Nitrogen 12 mg/dL (7-17); Calcium 8.6 mg/dL (8.4-10.2); Hemolysis Index 0
[2019-02-22 07:15] LABS: Alanine Aminotransferase < 5 units/L (7-56)
--- NOTE | 2019-02-22 09:03 | Progress Note ---
Assessment and Plan - Patient Problems (1) Intestinal obstruction Current Visit: Yes Status: Acute Qualifiers: Intestinal obstruction type: other intestinal obstruction Intestinal obstruction extent: partial Qualified Code(s): K56.690 - Other partial intestinal obstruction Plan to address problem: Pt stable. HD#6. Large BM this AM. Abd distention is less by measurement. Very soft. Fevers resolved. Await SBFT results. Still concerned that she is very distended. May ultimately need exploration anyway. Plan: 1) continue ambulation 2) continue TPN (started 02/21). Hypernatremia and Hyperphosphatemia most likely related to TPN formula. Adjustment per pharmacy. 3) Await SBFT report 4) Continue NGT until SBFT is completed and distention resolves Pt aware of plan. Everything written out for her. Subjective Date of service: 02/22/19 Patient Reports: Positive: no new complaints, feels better, pain is less, flatus (lots of flatus), bowel movement (large this morning. ) Objective Vital Signs - 12hr 02/21/19 02/22/19 02/22/19 23:41 04:18 07:25 Temperature 101.6 F H 98.3 F 97.5 F L Pulse Rate 124 H 104 H 104 H Respiratory 28 H 24 20 Rate Blood Pressure 115/75 108/75 Blood Pressure 106/72 [Left] O2 Sat by Pulse 97 96 97 Oximetry - General physical appearance no distress, no pain, other (appears tired) - Respiratory normal expansion, normal respiratory effort - Abdomen soft, not tender, bowel sounds hypoactive, distended, not guarding, not rigid - Integumentary no rash, no growths, no abnormal pigmentation - Labs 02/22/19 06:00 02/22/19 06:00 Diabetes panel 02/22/19 Range/Units 06:00 Sodium 146 H (137-145) mmol/L Potassium 3.7 (3.6-5.0) mmol/L Chloride 105.2 (98-107) mmol/L Carbon Dioxide 26 (22-30) mmol/L BUN 12 (7-17) mg/dL Creatinine 0.5 L (0.7-1.2) mg/dL Glucose 112 H (65-100) mg/dL Calcium 8.6 (8.4-10.2) mg/dL AST 7 (5-40) units/L ALT < 5 L (7-56) units/L Alkaline Phosphatase 62 (35-129) units/L Total Protein 6.3 (6.3-8.2) g/dL Albumin 2.8 L (3.9-5) g/dL Calcium panel 02/22/19 Range/Units 06:00 Calcium 8.6 (8.4-10.2) mg/dL Phosphorus 4.60 H (2.5-4.5) mg/dL Albumin 2.8 L (3.9-5) g/dL Pituitary panel 02/22/19 Range/Units 06:00 Sodium 146 H (137-145) mmol/L Potassium 3.7 (3.6-5.0) mmol/L Chloride 105.2 (98-107) mmol/L Carbon Dioxide 26 (22-30) mmol/L BUN 12 (7-17) mg/dL Creatinine 0.5 L (0.7-1.2) mg/dL Glucose 112 H (65-100) mg/dL Calcium 8.6 (8.4-10.2) mg/dL Adrenal panel 02/22/19 Range/Units 06:00 Sodium 146 H (137-145) mmol/L Potassium 3.7 (3.6-5.0) mmol/L Chloride 105.2 (98-107) mmol/L Carbon Dioxide 26 (22-30) mmol/L BUN 12 (7-17) mg/dL Creatinine 0.5 L (0.7-1.2) mg/dL Glucose 112 H (65-100) mg/dL Calcium 8.6 (8.4-10.2) mg/dL Total Bilirubin 0.90 (0.1-1.2) mg/dL AST 7 (5-40) units/L ALT < 5 L (7-56) units/L Alkaline Phosphatase 62 (35-129) units/L Total Protein 6.3 (6.3-8.2) g/dL Albumin 2.8 L (3.9-5) g/dL
[2019-02-22] MEDS: PEPCID IV SCH (09:06)
[2019-02-22] MEDS: REGLAN IV SCH ×4 (09:06→22:30)
[2019-02-22] MEDS: SODIUM CHLORIDE FLUSH SYRINGE 10 ML IV SCH ×2 (09:08→22:47)
[2019-02-22] MEDS ORDERED: TPN ADULT 2,016 ML IV SCH (20:00)
[2019-02-22] MEDS: LOVENOX SUB-Q SCH (22:30)
[2019-02-23] MEDS: HumuLIN R SUB-Q SCH ×5 (00:39→23:46)
[2019-02-23 05:08] LABS: BUN/Creatinine Ratio 26; Blood Urea Nitrogen 13 mg/dL (7-17); Calcium 8.9 mg/dL (8.4-10.2); Hemolysis Index 4
[2019-02-23] MEDS: REGLAN IV SCH ×4 (07:44→22:16)
--- NOTE | 2019-02-23 09:36 | Event Note ---
Date: 02/23/19 Returned page from nursing yesterday that patient's NGT came out. I reviewed Dr. Bowden's note and plan. I instructed nursing to put NGT back in. I received a call on my cell phone from nursing several hours later asking if I was coming to place NGT. I explained that the NGT should be replaced by RN. I advised that if they were busy to please call charge nurse or grocery supervisor for assistance.
[2019-02-23] MEDS: PEPCID IV SCH (10:38)
--- NOTE | 2019-02-23 17:50 | Progress Note ---
Assessment and Plan - Patient Problems (1) Intestinal obstruction Current Visit: Yes Status: Acute Qualifiers: Intestinal obstruction type: other intestinal obstruction Intestinal obstruction extent: partial Qualified Code(s): K56.690 - Other partial intestinal obstruction Plan to address problem: Pt stable. HD#7. Large BM this AM. Abd distention continues to decrease. Very soft. Fevers resolved. Last night, I discussed with her and her mother that the small bowel follow-through series did not point to any specific problem. The contrast did make it all the way to the rectum. However, she remains fairly distended. If she does not continue to progress, she may still ultimately need surgery. Today that seems to be less likely. Her abdomen is markedly improved today. She feels that this is almost back to normal. She would like to try a clear liquid diet again. I think it is reasonable. Plan: 1) continue ambulation 2) continue TPN (started 02/21). 3) Try clear liquid diet Pt aware of plan. Everything written out for her. Subjective Date of service: 02/23/19 Patient Reports: Positive: feels better, flatus, bowel movement. Negative: nausea, vomiting Objective Vital Signs - 12hr 02/23/19 02/23/19 02/23/19 08:05 12:00 12:46 Temperature 98.4 F 98.3 F Pulse Rate 107 H 110 H 100 H Respiratory 18 18 Rate Blood Pressure 106/73 Blood Pressure 98/68 [Left] O2 Sat by Pulse 97 95 Oximetry - General physical appearance no distress, no pain, other (looks better. ) - Respiratory normal expansion, normal respiratory effort - Abdomen soft, not tender, bowel sounds hypoactive, distended (but less so), not guarding, not rigid - Integumentary no rash, no growths, no abnormal pigmentation - Labs 02/22/19 06:00 02/23/19 08:48 Diabetes panel 02/23/19 02/23/19 02/23/19 Range/Units 04:30 08:40 08:48 Sodium TNR 139 Potassium TNR 4.1 Chloride 90.7 L (98-107) mmol/L Carbon Dioxide 24 (22-30) mmol/L BUN 13 (7-17) mg/dL Creatinine 0.5 L (0.7-1.2) mg/dL Glucose TNR 122 H Calcium 8.9 (8.4-10.2) mg/dL Calcium panel 02/23/19 Range/Units 04:30 Calcium 8.9 (8.4-10.2) mg/dL Phosphorus 4.20 (2.5-4.5) mg/dL Pituitary panel 02/23/19 02/23/19 02/23/19 Range/Units 04:30 08:40 08:48 Sodium TNR 139 Potassium TNR 4.1 Chloride 90.7 L (98-107) mmol/L Carbon Dioxide 24 (22-30) mmol/L BUN 13 (7-17) mg/dL Creatinine 0.5 L (0.7-1.2) mg/dL Glucose TNR 122 H Calcium 8.9 (8.4-10.2) mg/dL Adrenal panel 02/23/19 02/23/19 02/23/19 Range/Units 04:30 08:40 08:48 Sodium TNR 139 Potassium TNR 4.1 Chloride 90.7 L (98-107) mmol/L Carbon Dioxide 24 (22-30) mmol/L BUN 13 (7-17) mg/dL Creatinine 0.5 L (0.7-1.2) mg/dL Glucose TNR 122 H Calcium 8.9 (8.4-10.2) mg/dL
[2019-02-23] MEDS ORDERED: TPN ADULT 2,016 ML IV SCH (20:00)
[2019-02-23] MEDS: SODIUM CHLORIDE FLUSH SYRINGE 10 ML IV SCH (22:16)
[2019-02-23] MEDS: LOVENOX SUB-Q SCH (22:16)
[2019-02-24] MEDS: MORPHINE IV PRN (04:05)
[2019-02-24 06:57] LABS: BUN/Creatinine Ratio 30; Blood Urea Nitrogen 12 mg/dL (7-17); Calcium 8.7 mg/dL (8.4-10.2); Hemolysis Index 1
[2019-02-24] MEDS: PEPCID IV SCH ×2 (08:27→11:57)
[2019-02-24] MEDS: REGLAN IV SCH ×4 (08:27→21:17)
[2019-02-24] MEDS: SODIUM CHLORIDE FLUSH SYRINGE 10 ML IV SCH ×3 (08:28→21:17)
[2019-02-24] MEDS: HumuLIN R SUB-Q SCH ×2 (11:57→18:22)
--- NOTE | 2019-02-24 17:44 | Progress Note ---
Assessment and Plan - Patient Problems (1) Intestinal obstruction Current Visit: Yes Status: Acute Qualifiers: Intestinal obstruction type: other intestinal obstruction Intestinal obstruction extent: partial Qualified Code(s): K56.690 - Other partial intestinal obstruction Plan to address problem: Pt stable. HD#8. Continues to have bowel function. She tolerated the liquids. Her bowel sounds are improving. Seems to be slowly improving. If she does not continue to progress, she may still ultimately need surgery. Today that seems to be less likely. Her abdomen is markedly improved Compared to admission. She feels that this is almost back to normal. Plan: 1) continue ambulation 2) continue TPN (started 02/21). 3) Cont clear liquid diet Pt aware of plan. Everything written out for her. Subjective Date of service: 02/24/19 Patient Reports: Positive: no new complaints, feels better, tolerating liquids well, flatus, bowel movement. Negative: nausea, vomiting Objective Vital Signs - 12hr 02/24/19 02/24/19 02/24/19 07:46 12:29 16:24 Temperature 98.4 F 98.3 F 98.4 F Pulse Rate 101 H 108 H 110 H Respiratory 16 16 16 Rate Blood Pressure 97/64 101/62 102/68 [Left] O2 Sat by Pulse 96 97 96 Oximetry - General physical appearance no distress, no pain, other (looks better) - Respiratory normal expansion, normal respiratory effort - Abdomen soft, not tender, bowel sounds hypoactive (improved), distended (about the same ), not guarding, not rigid - Integumentary no rash, no growths, no abnormal pigmentation - Labs 02/22/19 06:00 02/24/19 05:45 Diabetes panel 02/24/19 Range/Units 05:45 Sodium 133 L (137-145) mmol/L Potassium 4.9 (3.6-5.0) mmol/L Chloride 98.9 (98-107) mmol/L Carbon Dioxide 25 (22-30) mmol/L BUN 12 (7-17) mg/dL Creatinine 0.4 L (0.7-1.2) mg/dL Glucose 117 H (65-100) mg/dL Calcium 8.7 (8.4-10.2) mg/dL Calcium panel 02/24/19 Range/Units 05:45 Calcium 8.7 (8.4-10.2) mg/dL Phosphorus 3.00 D (2.5-4.5) mg/dL Pituitary panel 02/24/19 Range/Units 05:45 Sodium 133 L (137-145) mmol/L Potassium 4.9 (3.6-5.0) mmol/L Chloride 98.9 (98-107) mmol/L Carbon Dioxide 25 (22-30) mmol/L BUN 12 (7-17) mg/dL Creatinine 0.4 L (0.7-1.2) mg/dL Glucose 117 H (65-100) mg/dL Calcium 8.7 (8.4-10.2) mg/dL Adrenal panel 02/24/19 Range/Units 05:45 Sodium 133 L (137-145) mmol/L Potassium 4.9 (3.6-5.0) mmol/L Chloride 98.9 (98-107) mmol/L Carbon Dioxide 25 (22-30) mmol/L BUN 12 (7-17) mg/dL Creatinine 0.4 L (0.7-1.2) mg/dL Glucose 117 H (65-100) mg/dL Calcium 8.7 (8.4-10.2) mg/dL
[2019-02-24] MEDS ORDERED: TPN ADULT 2,016 ML IV SCH ×2 (20:00)
[2019-02-24] MEDS: LOVENOX SUB-Q SCH (21:17)
[2019-02-25] MEDS: TYLENOL PR PRN (04:50)
[2019-02-25] MEDS: HumuLIN R SUB-Q SCH ×4 (06:55→17:20)
[2019-02-25] MEDS: SODIUM CHLORIDE FLUSH SYRINGE 10 ML IV SCH ×2 (09:22→21:12)
[2019-02-25] MEDS: PEPCID IV SCH (09:22)
[2019-02-25] MEDS: REGLAN IV SCH ×4 (09:22→21:12)
--- NOTE | 2019-02-25 11:31 | Progress Note ---
Assessment and Plan - Patient Problems (1) Intestinal obstruction Current Visit: Yes Status: Acute Qualifiers: Intestinal obstruction type: other intestinal obstruction Intestinal obstruction extent: partial Qualified Code(s): K56.690 - Other partial intestinal obstruction Plan to address problem: Pt stable. HD#9. Continues to have bowel function. She tolerated the liquids. Her bowel sounds are improving. Seems to be slowly improving. Will try full liquids and also start daily suppository If she does not continue to progress, she may still ultimately need surgery. Today that seems to be less likely. Her abdomen is markedly improved Compared to admission. She feels that this is almost back to normal. Overall, it may be worthwhile to consider sending her home with TPN and give her more time to slowly recover. She was open to it. I will also discuss with mother. Plan: 1) continue ambulation 2) continue TPN (started 02/21). 3) Advance to full liquid diet 4) daily suppository Pt aware of plan. Everything written out for her. Subjective Date of service: 02/25/19 Patient Reports: Positive: no new complaints, tolerating liquids well, flatus, bowel movement, other (would like to have a sandwich) Objective Vital Signs - 12hr 02/24/19 02/25/19 02/25/19 23:52 03:48 07:30 Temperature 98.5 F 100.2 F H 98.2 F Pulse Rate 103 H 116 H 100 H Respiratory 17 17 18 Rate Blood Pressure 104/66 106/68 Blood Pressure 97/62 [Left] O2 Sat by Pulse 97 96 Oximetry 02/25/19 07:41 Temperature Pulse Rate 101 H Respiratory Rate Blood Pressure Blood Pressure [Left] O2 Sat by Pulse 97 Oximetry - General physical appearance no distress, no pain, other (looks well) - Respiratory normal expansion, normal respiratory effort - Abdomen soft, not tender, bowel sounds hypoactive, distended, not guarding, not rigid - Labs 02/22/19 06:00 02/24/19 05:45
[2019-02-25] MEDS: DULCOLAX PR SCH (12:07)
[2019-02-25] MEDS: MORPHINE IV PRN (12:08)
[2019-02-25] MEDS: TYLENOL PO PRN (19:39)
[2019-02-25] MEDS ORDERED: TPN ADULT 2,016 ML IV SCH (20:00)
[2019-02-25] MEDS: LOVENOX SUB-Q SCH (21:12)
[2019-02-26] MEDS: HumuLIN R SUB-Q SCH ×4 (00:09→18:11)
[2019-02-26] MEDS: TYLENOL PO PRN (01:48)
[2019-02-26 07:31] LABS: Hematocrit 28.5 % (30.3-42.9); Hemoglobin 9.4 gm/dl (10.1-14.3); Mean Corpuscular HGB Conc 33 % (30-34); Mean Corpuscular Volume 89 fl (79-97); Platelet Count 322 K/mm3 (140-440); Red Blood Count 3.21 M/mm3 (3.65-5.03); Red Cell Distribution Width 13.9 % (13.2-15.2)
[2019-02-26 08:04] LABS: BUN/Creatinine Ratio 25; Blood Urea Nitrogen 10 mg/dL (7-17); Calcium 8.8 mg/dL (8.4-10.2); Hemolysis Index 4
--- NOTE | 2019-02-26 08:15 | Fluoroscopy Report ---
FLUOROSCOPY SMALL BOWEL SERIES HISTORY: Abdominal distention, check for point of obstruction. FINDINGS: Multiple previous radiographic examinations were reviewed. Iso Coordinator film of the abdomen demonstrates diffuse dilatation of small bowel loops throughout the abdomen measuring up to 6-8 cm in diameter. Total or near-total colectomy changes are suspected on recent CT. NG tube terminates in the stomach. Serial overhead radiographs were obtained for 22 hours. No fluoroscopic images were obtained. There is certainly delayed transit of the oral contrast through the GI system. Oral contrast is identified in the rectum at approximately 20 hours. There is marked diffuse dilatation of small bowel loops throughout the abdomen but no transition point could be detected on small bowel series. IMPRESSION: Diffuse dilatation of small bowel loops throughout the abdomen but no transition point could be detected on small bowel series. Markedly delayed transit of the oral contrast through the GI system at approximately 20 hours.
[2019-02-26] MEDS: DULCOLAX PR SCH (09:35)
[2019-02-26] MEDS: PEPCID IV SCH (09:35)
[2019-02-26] MEDS: REGLAN IV SCH ×4 (09:35→21:16)
[2019-02-26] MEDS: SODIUM CHLORIDE FLUSH SYRINGE 10 ML IV SCH ×3 (09:35→21:16)
--- NOTE | 2019-02-26 09:38 | Progress Note ---
Assessment and Plan - Patient Problems (1) Intestinal obstruction Current Visit: Yes Status: Acute Qualifiers: Intestinal obstruction type: other intestinal obstruction Intestinal obstruction extent: partial Qualified Code(s): K56.690 - Other partial intestinal obstruction Plan to address problem: Pt stable. HD#10. Continues to have bowel function. She tolerated the full liquids. She seems to be indicating that her stomach is about normal for her. She is wondering when she can go home. If she does not continue to progress, she may still ultimately need surgery. Today that seems to be less likely. Her abdomen is markedly improved Compared to admission. She feels that this is almost back to normal. Overall, it may be worthwhile to consider sending her home with TPN and give her more time to slowly recover. She was open to it. I will also discuss with mother. Plan: 1) continue ambulation 2) continue TPN (started 02/21). Will hold for 1 to 2 days due to presumed line infection. Will monitor for signs of hypoglycemia and start D10 if necessary. 3) continue full liquid diet 4) daily suppository 5) start fiber supplement. Pt aware of plan. Everything written out for her. (2) Fever Current Visit: Yes Status: Acute Qualifiers: Fever type: unspecified Qualified Code(s): R50.9 - Fever, unspecified Plan to address problem: In reviewing the fever pattern and when the fevers began happening, I think this is correlated with the placement of the PICC line. On the day of placement, the line had to be adjusted, which may have contributed to contamination of the line. I discussed the situation with Dr. Fox. She agreed that removal of the line was appropriate. 1) remove PICC line 2) send tips for culture 3) repeat labs in the morning 4) possible new PICC line in 1 to 2 days Subjective Date of service: 02/26/19 Patient Reports: Positive: tolerating liquids well, flatus, bowel movement, fever, other (feels ill). Negative: nausea, vomiting Objective Vital Signs - 12hr 02/25/19 02/25/19 02/26/19 21:48 23:25 01:48 Temperature 99.2 F 98.8 F Pulse Rate 110 H 107 H Respiratory 17 18 20 Rate Blood Pressure 97/58 Blood Pressure 96/62 [Left] O2 Sat by Pulse 96 97 Oximetry 02/26/19 02/26/19 03:37 07:15 Temperature 98.7 F 99.6 F Pulse Rate 105 H 120 H Respiratory 17 18 Rate Blood Pressure 97/56 Blood Pressure 99/58 [Left] O2 Sat by Pulse 97 97 Oximetry - General physical appearance no distress, no pain - Respiratory normal expansion, normal respiratory effort - Abdomen soft, not tender, bowel sounds hypoactive (less than before), distended (stable), not guarding, not rigid - Integumentary no rash, no growths, no abnormal pigmentation, other (no erythema around PICC site) - Musculoskeletal other (no leg swelling or tenderness) - Labs 02/26/19 07:08 02/26/19 07:08 Diabetes panel 02/26/19 Range/Units 07:08 Sodium 132 L (137-145) mmol/L Potassium 4.5 (3.6-5.0) mmol/L Chloride 95.2 L (98-107) mmol/L Carbon Dioxide 26 (22-30) mmol/L BUN 10 (7-17) mg/dL Creatinine 0.4 L (0.7-1.2) mg/dL Glucose 97 (65-100) mg/dL Calcium 8.8 (8.4-10.2) mg/dL Triglycerides 92 (2-149) mg/dL Calcium panel 02/26/19 Range/Units 07:08 Calcium 8.8 (8.4-10.2) mg/dL Phosphorus 4.10 (2.5-4.5) mg/dL Pituitary panel 02/26/19 Range/Units 07:08 Sodium 132 L (137-145) mmol/L Potassium 4.5 (3.6-5.0) mmol/L Chloride 95.2 L (98-107) mmol/L Carbon Dioxide 26 (22-30) mmol/L BUN 10 (7-17) mg/dL Creatinine 0.4 L (0.7-1.2) mg/dL Glucose 97 (65-100) mg/dL Calcium 8.8 (8.4-10.2) mg/dL Adrenal panel 02/26/19 Range/Units 07:08 Sodium 132 L (137-145) mmol/L Potassium 4.5 (3.6-5.0) mmol/L Chloride 95.2 L (98-107) mmol/L Carbon Dioxide 26 (22-30) mmol/L BUN 10 (7-17) mg/dL Creatinine 0.4 L (0.7-1.2) mg/dL Glucose 97 (65-100) mg/dL Calcium 8.8 (8.4-10.2) mg/dL
[2019-02-26] MEDS ORDERED: METAMUCIL PO SCH (12:00)
[2019-02-26 12:52] LABS: Band Neutrophils # (Manual) 0.4 K/mm3; Basophils % (Manual) 0 % (0.0-1.8); Eosinophils % (Manual) 0 % (0.0-4.3); Platelet Clumps Rare; Platelet Estimate Consistent w Auto; RBC Morphology Normal; Total Cells Counted 100
[2019-02-26] MEDS: TYLENOL PR PRN (21:15)
[2019-02-27 04:58] LABS: Basophils # (Auto) 0.1 K/mm3 (0.0-0.1); Basophils % (Auto) 0.3 % (0.0-1.8); Eosinophils # (Auto) 0.1 K/mm3 (0.0-0.4); Eosinophils % (Auto) 0.4 % (0.0-4.3); Hematocrit 32.1 % (30.3-42.9); Hemoglobin 10.6 gm/dl (10.1-14.3); Lymphocytes % (Auto) 5.2 % (13.4-35.0); Mean Corpuscular HGB Conc 33 % (30-34); Mean Corpuscular Volume 89 fl (79-97); Monocytes # (Auto) 0.9 K/mm3 (0.0-0.8); Monocytes % (Auto) 4.9 % (0.0-7.3); Platelet Count 403 K/mm3 (140-440); Red Blood Count 3.62 M/mm3 (3.65-5.03); Red Cell Distribution Width 14.5 % (13.2-15.2)
[2019-02-27 05:14] LABS: BUN/Creatinine Ratio 18; Blood Urea Nitrogen 11 mg/dL (7-17); Calcium 9.3 mg/dL (8.4-10.2); Hemolysis Index 0
[2019-02-27] MEDS: HumuLIN R SUB-Q SCH ×4 (07:33→18:39)
--- NOTE | 2019-02-27 09:06 | Progress Note ---
Assessment and Plan - Patient Problems (1) Intestinal obstruction Current Visit: Yes Status: Acute Qualifiers: Intestinal obstruction type: other intestinal obstruction Intestinal obstruction extent: partial Qualified Code(s): K56.690 - Other partial intestinal obstruction Plan to address problem: Pt stable. HD#11. Continues to have bowel function. She tolerated the full liquids. Her abdomen is more swollen today. We can not send her home like this. We will need to move forward with ex lap. Pt understands. Have tried to contact mother, but there is no answer. Plan: 1) continue ambulation 2) Hold TPN (started 02/21). Will hold for 1 to 2 days due to presumed line infection. 3) continue full liquid diet 4) daily suppository 5) start fiber supplement - hold today 6) Plan for OR tomorrow. Pt aware of plan. Everything written out for her. (2) Fever Current Visit: Yes Status: Acute Qualifiers: Fever type: unspecified Qualified Code(s): R50.9 - Fever, unspecified Plan to address problem: Still with intermittent fevers and WBC despite pulling line yesterday. Concerned that bowels may be the source. Subjective Date of service: 02/27/19 Patient Reports: Positive: no new complaints Objective Vital Signs - 12hr 02/26/19 02/27/19 23:40 03:42 Temperature 97.9 F 99.1 F Pulse Rate 109 H 113 H Respiratory 17 17 Rate Blood Pressure 92/55 104/73 O2 Sat by Pulse 95 97 Oximetry - General physical appearance no distress, no pain - Eyes normal occular movement - Respiratory normal expansion, normal respiratory effort - Abdomen soft, not tender, bowel sounds hypoactive, distended (more than yesterday), not guarding, not rigid - Integumentary no rash, no growths, no abnormal pigmentation - Labs 02/27/19 04:18 02/27/19 04:18 Diabetes panel 02/27/19 Range/Units 04:18 Sodium 132 L (137-145) mmol/L Potassium 4.3 (3.6-5.0) mmol/L Chloride 91.1 L (98-107) mmol/L Carbon Dioxide 26 (22-30) mmol/L BUN 11 (7-17) mg/dL Creatinine 0.6 L (0.7-1.2) mg/dL Glucose 90 (65-100) mg/dL Calcium 9.3 (8.4-10.2) mg/dL Calcium panel 02/27/19 Range/Units 04:18 Calcium 9.3 (8.4-10.2) mg/dL Pituitary panel 02/27/19 Range/Units 04:18 Sodium 132 L (137-145) mmol/L Potassium 4.3 (3.6-5.0) mmol/L Chloride 91.1 L (98-107) mmol/L Carbon Dioxide 26 (22-30) mmol/L BUN 11 (7-17) mg/dL Creatinine 0.6 L (0.7-1.2) mg/dL Glucose 90 (65-100) mg/dL Calcium 9.3 (8.4-10.2) mg/dL Adrenal panel 02/27/19 Range/Units 04:18 Sodium 132 L (137-145) mmol/L Potassium 4.3 (3.6-5.0) mmol/L Chloride 91.1 L (98-107) mmol/L Carbon Dioxide 26 (22-30) mmol/L BUN 11 (7-17) mg/dL Creatinine 0.6 L (0.7-1.2) mg/dL Glucose 90 (65-100) mg/dL Calcium 9.3 (8.4-10.2) mg/dL
[2019-02-27] MEDS: PEPCID IV SCH (10:34)
[2019-02-27] MEDS: REGLAN IV SCH ×4 (10:34→22:19)
[2019-02-27] MEDS: DULCOLAX PR SCH (10:34)
[2019-02-27] MEDS: SODIUM CHLORIDE FLUSH SYRINGE 10 ML IV SCH ×2 (10:35→22:26)
[2019-02-27] MEDS: D5W/0.45% NACL/KCL 20 MEQ 20 MEQ/1,000 ML BAG IV SCH ×2 (10:35→22:25)
[2019-02-27] MEDS: MORPHINE IV PRN ×3 (10:42→22:19)
[2019-02-27] MEDS: TYLENOL PR PRN (19:30)
[2019-02-28] MEDS: HumuLIN R SUB-Q SCH ×4 (01:08→18:37)
[2019-02-28] MEDS: REGLAN IV SCH ×5 (05:30→21:52)
[2019-02-28] MEDS: MORPHINE IV PRN ×4 (05:30→23:52)
[2019-02-28] MEDS ORDERED: VASELINE LIP THERAPY TP ONE (06:00)
[2019-02-28] MEDS ORDERED: ANCEF/STERILE WATER 2 GM/20 ML 2 GM/20 ML SYRINGE IV NR (06:00)
[2019-02-28] MEDS ORDERED: VASELINE LIP THERAPY TP PRN (06:01)
[2019-02-28] MEDS: PEPCID IV SCH (09:05)
[2019-02-28] MEDS: DULCOLAX PR SCH (09:05)
[2019-02-28] MEDS: SODIUM CHLORIDE FLUSH SYRINGE 10 ML IV SCH ×2 (09:06→21:52)
[2019-02-28] MEDS ORDERED: ceFAZolin 2 GM in NACL 0.9% 100 ML IV ONE (09:08)
--- NOTE | 2019-02-28 09:38 | Progress Note ---
Assessment and Plan - Patient Problems (1) Intestinal obstruction Current Visit: Yes Status: Acute Qualifiers: Intestinal obstruction type: other intestinal obstruction Intestinal obstruction extent: partial Qualified Code(s): K56.690 - Other partial intestinal obstruction Plan to address problem: Pt stable. HD#12. Continues to have bowel function. Abdomen more distended today. Plan for OR today for ex lap. Consent was obtained today. I wrote out our normal consent information so that she could read it. She had no questions. Plan: 1) To OR today. 2) Hold TPN (started 02/21). Will hold for 1 to 2 days due to presumed line infection. 3) NPO for surgery today 4) daily suppository Pt aware of plan. Everything written out for her. (2) Fever Current Visit: Yes Status: Acute Qualifiers: Fever type: unspecified Qualified Code(s): R50.9 - Fever, unspecified Plan to address problem: low grade fevers persist Subjective Date of service: 02/28/19 Patient Reports: Positive: other (abdomen feels bigger) Objective Vital Signs - 12hr 02/28/19 02/28/19 02/28/19 00:21 04:33 07:39 Temperature 98.9 F 98.8 F 98.9 F Pulse Rate 108 H 126 H 116 H Respiratory 16 16 18 Rate Blood Pressure 106/72 110/65 107/71 O2 Sat by Pulse 97 94 87 Oximetry - General physical appearance no distress, no pain - Eyes normal occular movement - Respiratory normal expansion, normal respiratory effort - Abdomen soft, not tender, distended (more today), not guarding, not rigid - Labs 02/27/19 04:18 02/27/19 04:18
[2019-02-28] MEDS ORDERED: DILAUDID ONE (14:18)
[2019-02-28] MEDS ORDERED: XYLOCAINE MPF 2% ONE (14:18)
[2019-02-28] MEDS ORDERED: ZOFRAN ONE (14:18)
[2019-02-28] MEDS ORDERED: ZEMURON IV ONE (14:18)
[2019-02-28] MEDS ORDERED: DECADRON ONE (14:18)
[2019-02-28] MEDS ORDERED: DIPRIVAN 10 MG/ML IV ONE (14:18)
[2019-02-28] MEDS ORDERED: LACTATED RINGERS 1,000 ML IV SCH (14:21)
[2019-02-28] MEDS ORDERED: LACTATED RINGERS 1,000 ML ONE (14:26)
--- NOTE | 2019-02-28 14:37 | Anesthesia Consultation ---
Anesthesia Consult and Med Hx Date of service: 02/28/19 - Airway Anesthetic Teeth Evaluation: Good ROM Head & Neck: Adequate Mental/Hyoid Distance: Adequate Mallampati Class: Class II Intubation Access Assessment: Good - Pulmonary Exam CTA: Yes - Cardiac Exam Cardiac Exam: No Murmur - Pre-Operative Health Status ASA Pre-Surgery Classification: ASA1 Proposed Anesthetic Plan: General - Pulmonary Hx Smoking: No Hx Asthma: No Hx Respiratory Symptoms: No Hx Pneumonia: No - Cardiovascular System Hx Hypertension: No Hx Heart Attack/AMI: No Hx Cardia Arrhythmia: No Hx Pacemaker: No Hx Internal Defibrillator: No - Central Nervous System Hx Seizures: No CVA: No Hx Psychiatric Problems: No - Endocrine Hx Renal Disease: No Hx Liver Disease: No Hx Insulin Dependent Diabetes: No (A1c 4.8 this admission ) Hx Non-Insulin Dependent Diabetes: No Hx Thyroid Disease: No - Hematic Hx Anemia: Yes - Other Systems Hx Obesity: No
--- NOTE | 2019-02-28 14:37 | Anesthesia Day of Surgery ---
Anesthesia Day of Surgery - Day of Surgery Patient Examined: Yes Patient H&P Reviewed: Yes Patient is NPO: Yes
[2019-02-28] MEDS ORDERED: NACL 0.9% IR ONE (15:35)
[2019-02-28] MEDS ORDERED: SILVER NITRATE TP ONE ×2 (15:54→16:37)
--- NOTE | 2019-02-28 16:04 | Post Operative Note ---
Date of procedure: 02/28/19 (Dictation: [id number]) Pre-op diagnosis: bowel obstruction Post-op diagnosis: same Findings: single point of obstruction from adhesion in LLQ. Distal bowel twisted on itself Procedure: Ex lap, EUNICE IVF - 400cc NGT 450cc UOP 40cc Anesthesia: GETA Surgeon: MERLY ZARATE Buffing Machine Operator Semiautomatic: KP OLVERA Estimated blood loss: minimal (25cc) Pathology: none Condition: stable Disposition: PACU
[2019-02-28] MEDS ORDERED: NACL 0.9% 1000 ML 1,000 ML IV ONE (16:07)
[2019-02-28] MEDS: ZOFRAN IV PRN (20:01)
--- NOTE | 2019-02-28 21:39 | Operative Report ---
PREOPERATIVE DIAGNOSIS: Bowel obstruction. POSTOPERATIVE DIAGNOSIS: Bowel obstruction secondary to a single area of adhesion. PROCEDURES: 1. Exploratory laparotomy. 2. Lysis of adhesions. ATTENDING PHYSICIAN: Ondina Bowden MD CO-SURGEON: Dr. Shaw NURSE PRACTITIONER PER DIEM: Dr. Soriano ANESTHESIA: General. ESTIMATED BLOOD LOSS: Less than 25 mL. IV FLUIDS: 400 mL. NG TUBE OUTPUT: 450 mL. URINE OUTPUT: 40 mL. FINDINGS: Massively dilated small bowel that was dilated distal to where we identified a fixed point of adhesion of the small bowel in the left lower quadrant and the dilated bowel was twisted on itself. There was no necrosis of bowel. Our previous ileostomy takedown site and anastomosis had healed completely. There was no any residual evidence of where we had done that, it healed very nicely. We identified a number of interesting things. The patient appears to have had a left hepatectomy, a splenectomy, a gastrojejunostomy. Of note, the mother was unaware of any of this when I told her after the case. The remaining portion of the liver was densely scarred down as was the gallbladder. The gallbladder was slightly distended, but covered with adhesions and the dome was adhered to the right lateral abdominal wall. We saw some fibrinous tissue in the lower portion of the abdomen, which was very minimal. We saw no evidence of any infection or purulent fluid. There was no inflammation of the bowel. SPECIMENS: None. DRAINS: None. COMPLICATIONS: Stable, transferred to Recovery Room. INDICATIONS: This is a 24-year-old female whom we had previously operated on about 4-5 weeks ago when she initially presented with a prolapse of her ileostomy. We took her to the operating room and ultimately discovered that she had a loop ileostomy and then converted that to a takedown and closure of that opening. The patient initially did very well. Of note, in retrospect, she did have dilated small bowel that we felt was a chronic issue, but I wonder if perhaps that was the beginning of what we eventually dealt with at this time. However, she came back in with dilated abdomen. We tried to manage her conservatively, however she failed. Ultimately, we decided to take her to the operating room. Procedure, risks, benefits were explained to the patient via writing as she is deaf. Risks included but were not limited to infection, bleeding, pain, injury to surrounding structures, possible need for further procedures in the future, possible ostomy creation. The patient understood and consented. I also spoke with the mother and she understood the risks. She also consented as well. DESCRIPTION OF PROCEDURE: The patient was brought to the operating room and placed on the table in supine position. After adequate general anesthesia was established, the patient was prepped and draped in the usual sterile fashion. Antibiotics had been administered prior to start of the case. SCDs were in place. Time-out was called. I began by making the midline incision just superior to where her previous incision was from surgeries in [place]. We entered the peritoneal cavity safely. I then inserted finger and then opened up the rest of the incision that I felt that I would need. We had absolutely no adhesions in this area, perhaps they had used Seprafilm in the past, but in any event, there was no omentum and no adhesions. We began by eviscerating the small bowel. It was the size of a dilated large bowel. Initially, it was difficult to tell what was going on. However, we soon realized that the bowel was twisted on its mesentery. We untwisted it and then we followed it proximally and distally. As we followed proximally, we found that there was a point of the intestine that became decompressed and was adhered down in the left lower quadrant and proximal to that it went to the left upper quadrant and went directly into the stomach, which appeared to be a gastrojejunostomy. Distally, we did not find any other problems. It appeared at this point that probably what had happened was that there was an adhesion of a loop of small bowel down the left lower quadrant. This was the pivot point for the rest of the bowel distally to then twist on itself, but it was partially twisted as the patient up until recently was having some bowel function and some gas past the site. I do not think she had a complete closed loop, but perhaps a partial. It was partially open more distally than proximally as we were not getting very much fluid or air back with the NG tube that she had previously. We freed up with blunt finger dissection the limb that was adhered to the left lower quadrant. Please note this was completely separate from our ileostomy takedown site, which was on the opposite side and we saw no evidence of any inflammatory change there, so this was an adhesion probably from prior surgery. In any event, at this point, the bowel was completely freed. We were now able to milk all the air back into the stomach. We were able to completely decompress the entire small bowel and it went into the abdomen extremely easily. We had no further distention. In actuality, she now had a scaphoid abdomen instead of a markedly distended abdomen. We thoroughly washed out the abdomen and then in the area where the adhesion was, we placed a layer of Seprafilm. We allowed the small bowel to go back easily into the abdomen and then underneath the area of the incision, we covered the entire area with Seprafilm. A #1 looped PDS was used to close the fascia starting at the inferior aspect and tying it at the superior aspect. The wound was cleaned, skin was closed with venessa. Skin was cleaned and dried, dressings were placed. I then applied silver nitrate to the old ileostomy site as this had completely granulated in and it now appeared there was some hypergranulation tissue. The patient tolerated the procedure well. There were no complications. All counts were correct at the end of the case. I spoke with the mom at the end of the case. She was very appreciative for everything that we had done and she understands that the patient may have a prolonged ileus or delayed return of function due to the marked dilatation of the bowel. We will begin TPN tomorrow and continue that most likely at home until her bowel function hopefully resumes to normal function. JOB# [id number] KIM/RICARDA OCHOA
[2019-03-01] MEDS: HumuLIN R SUB-Q SCH ×3 (05:39→18:00)
[2019-03-01] MEDS: MORPHINE IV PRN ×3 (05:46→14:57)
[2019-03-01 05:54] LABS: Basophils % (Auto) 0.1 % (0.0-1.8); Hematocrit 32.3 % (30.3-42.9); Hemoglobin 10.7 gm/dl (10.1-14.3); Lymphocytes # (Auto) 0.8 K/mm3 (1.2-5.4); Lymphocytes % (Auto) 4.9 % (13.4-35.0); Mean Corpuscular HGB Conc 33 % (30-34); Mean Corpuscular Volume 89 fl (79-97); Monocytes # (Auto) 0.9 K/mm3 (0.0-0.8); Monocytes % (Auto) 5.6 % (0.0-7.3); Platelet Count 539 K/mm3 (140-440); Red Blood Count 3.65 M/mm3 (3.65-5.03); Red Cell Distribution Width 14.4 % (13.2-15.2)
[2019-03-01] MEDS: D5W/0.45% NACL/KCL 20 MEQ 20 MEQ/1,000 ML BAG IV SCH (05:55)
[2019-03-01 07:40] LABS: BUN/Creatinine Ratio 20; Blood Urea Nitrogen 10 mg/dL (7-17); Calcium 8.3 mg/dL (8.4-10.2); Hemolysis Index 0
[2019-03-01] MEDS: SODIUM CHLORIDE FLUSH SYRINGE 10 ML IV SCH ×2 (09:07→21:00)
[2019-03-01] MEDS ORDERED: NARCAN 0.4 MG/1 ML IV PRN (09:10)
--- NOTE | 2019-03-01 09:11 | Progress Note ---
Assessment and Plan - Patient Problems (1) Intestinal obstruction Current Visit: Yes Status: Acute Qualifiers: Intestinal obstruction type: other intestinal obstruction Intestinal obstruction extent: partial Qualified Code(s): K56.690 - Other partial intestinal obstruction Plan to address problem: Pt stable. HD#13. s/p Ex lap and EUNICE - 02/28 POD#1. Abd much improved. Having pain as expected. 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 Encourage ambulation and IS. Will try clamping NGT. Plan: 1) Ambulate 2) IS 3) Clamp NGT. Remove later today if asymptomatic. 4) PICC line placement and resumption of TPN. Will most likely need TPN at home. Pt aware of plan. Everything written out for her. Subjective Date of service: 03/01/19 Patient Reports: Positive: no new complaints Objective Vital Signs - 12hr 03/01/19 03/01/19 03/01/19 00:47 03:52 03:54 Temperature 98.9 F 98.6 F Pulse Rate 109 H 104 H Respiratory 20 20 97 H Rate Blood Pressure 112/73 112/73 O2 Sat by Pulse 97 Oximetry - General physical appearance no distress, no pain - Eyes normal occular movement - Respiratory normal expansion, normal respiratory effort - Abdomen soft, tender (mild), bowel sounds hypoactive, distended (mild), not guarding, not rigid, other (minimal drainage on dressing. NGT with gastric type drainage) - Labs 03/01/19 04:58 03/01/19 04:58 Diabetes panel 03/01/19 Range/Units 04:58 Sodium 134 L (137-145) mmol/L Potassium 5.1 H (3.6-5.0) mmol/L Chloride 101.7 (98-107) mmol/L Carbon Dioxide 23 (22-30) mmol/L BUN 10 (7-17) mg/dL Creatinine 0.5 L (0.7-1.2) mg/dL Glucose 117 H (65-100) mg/dL Calcium 8.3 L (8.4-10.2) mg/dL Calcium panel 03/01/19 Range/Units 04:58 Calcium 8.3 L (8.4-10.2) mg/dL Pituitary panel 03/01/19 Range/Units 04:58 Sodium 134 L (137-145) mmol/L Potassium 5.1 H (3.6-5.0) mmol/L Chloride 101.7 (98-107) mmol/L Carbon Dioxide 23 (22-30) mmol/L BUN 10 (7-17) mg/dL Creatinine 0.5 L (0.7-1.2) mg/dL Glucose 117 H (65-100) mg/dL Calcium 8.3 L (8.4-10.2) mg/dL Adrenal panel 03/01/19 Range/Units 04:58 Sodium 134 L (137-145) mmol/L Potassium 5.1 H (3.6-5.0) mmol/L Chloride 101.7 (98-107) mmol/L Carbon Dioxide 23 (22-30) mmol/L BUN 10 (7-17) mg/dL Creatinine 0.5 L (0.7-1.2) mg/dL Glucose 117 H (65-100) mg/dL Calcium 8.3 L (8.4-10.2) mg/dL
[2019-03-01] MEDS ORDERED: NACL 0.9% 1000 ML 1,000 ML IV SCH (10:00)
[2019-03-01] MEDS ORDERED: MORPHINE PCA 30MG/30ML IV SCH (10:00)
[2019-03-01] MEDS: PEPCID IV SCH (10:38)
[2019-03-01] MEDS: REGLAN IV SCH ×4 (10:38→21:00)
[2019-03-01] MEDS: TYLENOL PO PRN (20:56)
[2019-03-02] MEDS: HumuLIN R SUB-Q SCH ×4 (01:39→21:21)
[2019-03-02] MEDS: TYLENOL PO PRN ×2 (01:40→12:17)
[2019-03-02] MEDS: REGLAN IV SCH ×4 (07:48→21:20)
[2019-03-02] MEDS: PEPCID IV SCH (10:47)
--- NOTE | 2019-03-02 11:38 | XRay Report ---
PORTABLE CHEST INDICATION: PICC placement verification. COMPARISON: 02/21/2019 FINDINGS: Portable, frontal chest radiograph demonstrates new right upper extremity PICC tip in the IVC, approximately 8 cm below the cavoatrial junction. Interval nasogastric tube and left upper extremity PICC removal. Left hemidiaphragm again higher than the right, now by approximately 3.5 cm in this patient with subjacent gaseous gastric distention noted on previous exams. However, Rigler's sign now not excluded for pneumoperitoneum. Mild left basilar atelectasis. Clear remainder lungs. Normal cardiomediastinal silhouette. Intact bones. CONCLUSION: 1. New right upper extremity PICC that may be retracted approximately 8 cm for tip placement about the cavoatrial junction, as warranted. 2. Pneumoperitoneum now not entirely excluded in this patient with interval left upper extremity and nasogastric tube removal and an elevated left hemidiaphragm, as described. Please correlate. I phoned the above results to Dr. Shaw, 11:30 AM, 03/02/2019 who provided additional history of laparotomy 2 days ago. Thank you for the opportunity to participate in this patient's care.
--- NOTE | 2019-03-02 12:49 | XRay Report ---
PORTABLE CHEST INDICATION: Right PICC pulled back. COMPARISON: 10:29 AM earlier today. FINDINGS: Portable, frontal chest radiograph, 12:25 PM, 03/02/2019 demonstrates right upper extremity PICC tip now at the cavoatrial junction. No other significant change with abdominal skin venessa now partially imaged. CONCLUSION: Satisfactory interval right upper extremity PICC manipulation, as described. Thank you for the opportunity to participate in this patient's care.
--- NOTE | 2019-03-02 13:45 | Progress Note ---
Assessment and Plan (1) Intestinal obstruction Current Visit: Yes Status: Acute Qualifiers: Intestinal obstruction type: other intestinal obstruction Intestinal obstruction extent: partial Qualified Code(s): K56.690 - Other partial intestinal obstruction Plan to address problem: Pt stable. HD#14. s/p Ex lap and EUNICE - 02/28 POD#2. Abd improved as is pain. Encourage ambulation and IS. Plan: 1) Ambulation encouraged 2) IS 3) NPO/IVF 4) PICC line placed. Discussed with concrete handler to resume TPN today. 5) will monitor for additional fevers 6) Labs pending for today Pt aware of plan. Everything written out for her. Subjective Date of service: 03/02/19 Narrative: Pt seen and examined. No complaints. Denies pain. Fever of 102 recorded overnight. Patient denies CP, SOB, n/v. +Flatus Objective Vital Signs - 12hr 03/02/19 03/02/19 03/02/19 03:22 04:27 07:25 Temperature 99.1 F 99.6 F Pulse Rate 107 H 123 H Respiratory 18 17 19 Rate Blood Pressure 109/58 Blood Pressure 108/68 [Left] O2 Sat by Pulse 99 99 Oximetry 03/02/19 12:00 Temperature 100.4 F H Pulse Rate 131 H Respiratory 18 Rate Blood Pressure Blood Pressure 111/73 [Left] O2 Sat by Pulse Oximetry - General physical appearance Narrative Exam: Gen: AAOx3. NAD CV: s1, S2+ resp: even and unlabored Abd: soft, mildly distended, NT. Incision c/d/i. New coversite dressing applied Ext: no c/c/e - Labs 03/01/19 04:58 03/01/19 04:58
[2019-03-02 13:53] LABS: Basophils # (Auto) 0.1 K/mm3 (0.0-0.1); Basophils % (Auto) 0.6 % (0.0-1.8); Eosinophils # (Auto) 0.1 K/mm3 (0.0-0.4); Eosinophils % (Auto) 1.3 % (0.0-4.3); Hematocrit 24.4 % (30.3-42.9); Lymphocytes # (Auto) 0.6 K/mm3 (1.2-5.4); Lymphocytes % (Auto) 5.2 % (13.4-35.0); Mean Corpuscular HGB Conc 33 % (30-34); Mean Corpuscular Volume 88 fl (79-97); Monocytes # (Auto) 0.6 K/mm3 (0.0-0.8); Monocytes % (Auto) 5.3 % (0.0-7.3); Platelet Count 463 K/mm3 (140-440); Red Blood Count 2.78 M/mm3 (3.65-5.03); Red Cell Distribution Width 14.3 % (13.2-15.2)
[2019-03-02 14:18] LABS: BUN/Creatinine Ratio 22; Blood Urea Nitrogen 11 mg/dL (7-17); Hemolysis Index 17
[2019-03-02] MEDS ORDERED: TPN ADULT 2,016 ML IV SCH (20:00)
[2019-03-02] MEDS: SODIUM CHLORIDE FLUSH SYRINGE 10 ML IV SCH (21:20)
[2019-03-03] MEDS: HumuLIN R SUB-Q SCH ×4 (06:00→19:29)
[2019-03-03 07:04] LABS: BUN/Creatinine Ratio 18; Blood Urea Nitrogen 9 mg/dL (7-17); Calcium 7.8 mg/dL (8.4-10.2); Hemolysis Index 5
[2019-03-03] MEDS: REGLAN IV SCH ×4 (08:00→21:39)
[2019-03-03] MEDS: TYLENOL PO PRN ×2 (08:01→18:30)
[2019-03-03] MEDS: PEPCID IV SCH (11:21)
[2019-03-03] MEDS ORDERED: CATHFLO IV ONE (15:04)
--- NOTE | 2019-03-03 15:11 | Progress Note ---
Assessment and Plan (1) Intestinal obstruction Current Visit: Yes Status: Acute Qualifiers: Intestinal obstruction type: other intestinal obstruction Intestinal obstruction extent: partial Qualified Code(s): K56.690 - Other partial intestinal obstruction Plan to address problem: Pt stable. HD#15. s/p Ex lap and EUNICE - 02/28 POD#3. Although abdomen is more distended today, it is nontender and incisions are clean without signs of infection. She had fevers overnight, ?etiology. CXR yesterday did not show evidence of atelectasis however patient not using IS. Will perform w/u and obtain blood cultures. Plan: 1) Ambulation encouraged 2) IS - patient barely reaching 500 cc due to short quick breaths. I performed ID education and advised patient to continue to use it throughout the day 3) Clear liquids, dc IVF 4) PICC line placed. TPN restarted last night 5) WBC trending down - repeat CBC pending 6) Blood cultures ordered 7) Venous duplex b/l LE to r/o DVT 8) Urinalysis 9) cathflo ordered for PICC line as difficult to draw blood from it. Will continue to monitor for fevers. Overnight nursing is not making physician aware of fevers. Discussed with Day shift nursing. Pt aware of plan. Everything written out for her. Subjective Date of service: 03/03/19 Narrative: Pt seen and examined. Has no complaints. Has been walking in the hallway 4x today. No CP, SON, n/v. Minimal abdominal pain which is controlled with current regimen. She is tolerating clear liquid diet. She is passing flatus and had a liquid BM today. Fevers again overnight. Objective Vital Signs - 12hr 03/03/19 03/03/19 03/03/19 04:24 07:48 11:41 Temperature 101.2 F H 100.2 F H 98.1 F Pulse Rate 131 H 124 H 102 H Respiratory 16 18 18 Rate Blood Pressure 117/70 117/71 115/71 O2 Sat by Pulse 93 94 96 Oximetry - General physical appearance Narrative Exam: Gen: AAOx3. NAD CV: s1, S2+ Resp: even and unlabored Abd: soft, moderately distended - more so than yesterday. Midline incision c/d/i. RLQ wound clean. Dressings applied. Abdomen is nontender. No r/r/g Ext: no c/c/e - Labs 03/02/19 13:37 03/03/19 06:28 Diabetes panel 03/03/19 Range/Units 06:28 Sodium 134 L (137-145) mmol/L Potassium 3.7 (3.6-5.0) mmol/L Chloride 96.7 L (98-107) mmol/L Carbon Dioxide 25 (22-30) mmol/L BUN 9 (7-17) mg/dL Creatinine 0.5 L (0.7-1.2) mg/dL Glucose 111 H (65-100) mg/dL Calcium 7.8 L (8.4-10.2) mg/dL Calcium panel 03/03/19 Range/Units 06:28 Calcium 7.8 L (8.4-10.2) mg/dL Phosphorus 2.70 (2.5-4.5) mg/dL Pituitary panel 03/03/19 Range/Units 06:28 Sodium 134 L (137-145) mmol/L Potassium 3.7 (3.6-5.0) mmol/L Chloride 96.7 L (98-107) mmol/L Carbon Dioxide 25 (22-30) mmol/L BUN 9 (7-17) mg/dL Creatinine 0.5 L (0.7-1.2) mg/dL Glucose 111 H (65-100) mg/dL Calcium 7.8 L (8.4-10.2) mg/dL Adrenal panel 03/03/19 Range/Units 06:28 Sodium 134 L (137-145) mmol/L Potassium 3.7 (3.6-5.0) mmol/L Chloride 96.7 L (98-107) mmol/L Carbon Dioxide 25 (22-30) mmol/L BUN 9 (7-17) mg/dL Creatinine 0.5 L (0.7-1.2) mg/dL Glucose 111 H (65-100) mg/dL Calcium 7.8 L (8.4-10.2) mg/dL
--- NOTE | 2019-03-03 15:20 | Vascular Lab Report ---
PROCEDURE: VL VENOUS DUPLEX LE BILAT TECHNIQUE: Duplex Doppler sonography of the BILATERAL legs. Garcia scale imaging with and without comp ression, spectral waveform analysis with and without augmentation, and color flow Doppler were employ ed. HISTORY: post op fever . History of intestinal obstruction status post abdominal biopsy COMPARISONS: None FINDINGS: RIGHT LOWER EXTREMITY: Deep Venous Thrombus: None Superficial Venous Thrombus: None Venous valvular incompetence: None Soft tissue abnormality: None LEFT LOWER EXTREMITY: Deep Venous Thrombus: None Superficial Venous Thrombus: None Venous valvular incompetence: None Soft tissue abnormality: None IMPRESSION: No evidence of deep venous thrombosis This document is electronically signed by Ary Stacy MD., March 03 2019 03:19:00 PM ET
[2019-03-03] MEDS ORDERED: WATER FOR INJ (PF) ONE (15:32)
[2019-03-03] MEDS: SODIUM CHLORIDE FLUSH SYRINGE 10 ML IV SCH ×2 (16:59→22:00)
[2019-03-03 17:47] LABS: Hematocrit 23.7 % (30.3-42.9); Hemoglobin 7.7 gm/dl (10.1-14.3); Mean Corpuscular HGB Conc 33 % (30-34); Mean Corpuscular Volume 90 fl (79-97); Platelet Count 421 K/mm3 (140-440); Red Blood Count 2.64 M/mm3 (3.65-5.03); Red Cell Distribution Width 14.2 % (13.2-15.2)
[2019-03-03] MEDS ORDERED: TPN ADULT 2,016 ML IV SCH (20:00)
[2019-03-04] MEDS: HumuLIN R SUB-Q SCH ×5 (03:55→23:15)
[2019-03-04] MEDS: TYLENOL PO PRN ×2 (05:47→18:36)
[2019-03-04] MEDS: FLAGYL 500 MG/100 ML 500 MG/100 ML BAG IV SCH ×3 (05:50→21:29)
[2019-03-04 06:36] LABS: Basophils % (Auto) 0.2 % (0.0-1.8); Eosinophils # (Auto) 0.3 K/mm3 (0.0-0.4); Eosinophils % (Auto) 2.2 % (0.0-4.3); Hematocrit 23.9 % (30.3-42.9); Hemoglobin 7.9 gm/dl (10.1-14.3); Lymphocytes # (Auto) 0.8 K/mm3 (1.2-5.4); Lymphocytes % (Auto) 6.2 % (13.4-35.0); Mean Corpuscular HGB Conc 33 % (30-34); Mean Corpuscular Volume 88 fl (79-97); Monocytes # (Auto) 0.7 K/mm3 (0.0-0.8); Monocytes % (Auto) 5.4 % (0.0-7.3); Platelet Count 436 K/mm3 (140-440); Red Blood Count 2.72 M/mm3 (3.65-5.03); Red Cell Distribution Width 14.4 % (13.2-15.2)
[2019-03-04 06:50] LABS: BUN/Creatinine Ratio 27; Blood Urea Nitrogen 8 mg/dL (7-17); Calcium 7.8 mg/dL (8.4-10.2); Hemolysis Index 1
[2019-03-04] MEDS: REGLAN IV SCH ×4 (09:10→21:24)
[2019-03-04] MEDS: LEVAQUIN 500MG/100ML 500 MG/100 ML BAG IV SCH (09:10)
[2019-03-04] MEDS: PEPCID IV SCH (09:10)
[2019-03-04] MEDS: SODIUM CHLORIDE FLUSH SYRINGE 10 ML IV SCH ×2 (09:11→21:10)
--- NOTE | 2019-03-04 14:40 | Progress Note ---
Assessment and Plan (1) Intestinal obstruction Current Visit: Yes Status: Acute Qualifiers: Intestinal obstruction type: other intestinal obstruction Intestinal obstruction extent: partial Qualified Code(s): K56.690 - Other partial intestinal obstruction Plan to address problem: Pt stable. HD#16. s/p Ex lap and EUNICE - 02/28 POD#4. Abdomen distended, nontender and incisions are clean without signs of infection. She continues to have fevers overnight, ?etiology. In looking back at vital signs, she was having fevers even prior to surgery. CXR did not show evidence of atelectasis, patient doing better with IS. Venous duplex negative for DVT. PICC line culture showed no growth Plan: 1) Ambulation encouraged 2) IS - getting to 500cc now 3) Clear liquids 4) c/w TPN, replace K 5) trend WBC 6) Blood cultures results pending 7) Urinalysis/Urine cx - discussed with nursing to collect urine yesterday and was not done 8) Pain is minimal - will consider discontinuing SEWER REPAIRER in am 9) DVT ppx Pt aware of plan. Everything written out for her. Subjective Date of service: 03/04/19 Narrative: Pt seen and examined. No complaints. Denies pain. 4 BMs today, + flatus. + Fever overnight of 101. Denies cough, chest pain, shortness or breath, pain with urination. Patient asking for more food and when she will go home. Objective Vital Signs - 12hr 03/04/19 03/04/19 03/04/19 04:43 07:33 08:00 Temperature 101.0 F H 98.3 F Pulse Rate 98 H 109 H 112 H Respiratory 20 18 Rate Blood Pressure 108/65 109/70 [Left] O2 Sat by Pulse 94 95 Oximetry - General physical appearance Narrative Exam: Gen: AAOx3. NAD CV: S1, S2+ Resp; even and unlabored Abd: soft, distended, NT. Dressings c/d/i. RLQ wound is healing well. Ext: no c/c/e - Labs 03/04/19 05:36 03/04/19 05:36 Diabetes panel 03/04/19 Range/Units 05:36 Sodium 135 L (137-145) mmol/L Potassium 3.2 L (3.6-5.0) mmol/L Chloride 97.2 L (98-107) mmol/L Carbon Dioxide 26 (22-30) mmol/L BUN 8 (7-17) mg/dL Creatinine 0.3 L (0.7-1.2) mg/dL Glucose 123 H (65-100) mg/dL Calcium 7.8 L (8.4-10.2) mg/dL Calcium panel 03/04/19 Range/Units 05:36 Calcium 7.8 L (8.4-10.2) mg/dL Phosphorus 3.10 (2.5-4.5) mg/dL Pituitary panel 03/04/19 Range/Units 05:36 Sodium 135 L (137-145) mmol/L Potassium 3.2 L (3.6-5.0) mmol/L Chloride 97.2 L (98-107) mmol/L Carbon Dioxide 26 (22-30) mmol/L BUN 8 (7-17) mg/dL Creatinine 0.3 L (0.7-1.2) mg/dL Glucose 123 H (65-100) mg/dL Calcium 7.8 L (8.4-10.2) mg/dL Adrenal panel 03/04/19 Range/Units 05:36 Sodium 135 L (137-145) mmol/L Potassium 3.2 L (3.6-5.0) mmol/L Chloride 97.2 L (98-107) mmol/L Carbon Dioxide 26 (22-30) mmol/L BUN 8 (7-17) mg/dL Creatinine 0.3 L (0.7-1.2) mg/dL Glucose 123 H (65-100) mg/dL Calcium 7.8 L (8.4-10.2) mg/dL
[2019-03-04] MEDS: KCL 10MEQ/100ML 10 MEQ/100 ML BAG IV SCH ×4 (15:32→18:42)
[2019-03-04 16:21] LABS: Bilirubin,Urine NEG (Negative); Blood,Urine NEG (Negative); Color,Urine Yellow (Yellow); Mucus,Urine 1+ /HPF
[2019-03-04] MEDS ORDERED: TPN ADULT 2,016 ML IV SCH (20:00)
--- NOTE | 2019-03-05 00:32 | Cat Scan Report ---
PROCEDURE: CT ANGIO CHEST TECHNIQUE: Computerized tomographic angiography of the chest was performed after the IV injection of iodinated nonionic contrast including image processing. The image data was postprocessed using 2-di mensional multiplanar reformatted (MPR) and 3-dimensional (MIP and/or volume rendered) techniques. Au tomated exposure control, adjustment of mA and/or kV according to patient size, or iterative reconstr uction dose optimization techniques were utilized. CT DOSE LENGTH PRODUCT: 1240.8 mGycm HISTORY: fever,tachycardia post op, r/o PE COMPARISONS: None . FINDINGS: Heart and pericardium: The heart size is normal. There is pressure upon the left side of the heart fr om an elevated left hemidiaphragm and multiple gas and fluid-filled loops of dilated bowel in the upp er abdominal region.. Thoracic aorta: The thoracic aorta has a normal caliber. No aneurysm or dissection. Pulmonary vasculature: There is no evidence of pulmonary arterial emboli. Lymph nodes: No enlarged thoracic lymph nodes. Lungs: Moderate atelectasis and effusion in the left lower lung. The right lung appears clear. These central airway is patent. Pleural space: Moderate left effusion. No pneumothorax. Musculoskeletal structures: No significant abnormality. Upper abdominal structures: There is significant dilatation of the bowel in the upper abdomen. Moder ate free air from recent surgery is noted. There is significant elevation of the left hemidiaphragm.. IMPRESSION: There is moderate atelectasis and effusion in the left lower lung. The right lung appear s clear. There is significant elevation of the left hemidiaphragm, there are multiple loops of dilate d gas filled bowel in the upper abdomen as well as moderate free air in the peritoneum from recent porter rgery. There is no evidence of pulmonary arterial emboli . This document is electronically signed by Monica Chen DO., March 05 2019 12:30:15 AM ET
--- NOTE | 2019-03-05 00:49 | Cat Scan Report ---
PROCEDURE: CT ABDOMEN PELVIS W CON TECHNIQUE: Routine axial imaging was obtained of the abdomen and pelvis following the intravenous in jection of iodinated contrast. Oral contrast was also administered. Delayed imaging was obtained of t he kidneys ureters and bladder. Sagittal and coronal reconstructions were reviewed. HISTORY: fever,tachycardia post op COMPARISONS: 02/17/2019 FINDINGS: There is free air within the abdomen most likely related to post operative pneumoperitoneum. There is stable prominent distention of small bowel and large bowel loops. There is an anastomotic suture gilbert e noted in the pelvis. Distal to the suture lines considerable retained feces and fluid within the co mao. In the pelvis there is markedly reticulation of the mesentery with several small fluid foci with in the mesentery measuring 3.8 cm in diameter. Whether these represent sterile fluid collections or a bscesses is uncertain. There is chronic elevation of the left hemidiaphragm with atelectasis in left lower lobe. The liver, gallbladder and biliary tree appear normal. The pancreas and spleen appear normal. The kidneys show n o evidence for necrosis. The adrenal glands appear normal. The soft tissues reveal midline skin stapl es. IMPRESSION: Post operative pneumoperitoneum. Persistent moderate to marked distention of small bowel and large angela wel loops extending of the pelvis. Whether the findings are on the basis of a residual distal large b owel obstruction versus postoperative ileus is uncertain. Several foci of fluid in the mesentery in the pelvis measured 3.8 cm in diameter. Whether these repre sent sterile fluid collections or abscesses is uncertain. Considerable mesenteric edema noted in the pelvis.. The findings were discussed with nurse Renay Rangel at 12:47 AM on 03/05/2019. This document is electronically signed by Lalo Mcgregor MD., March 05 2019 12:47:47 AM ET
[2019-03-05] MEDS: TYLENOL PO PRN ×3 (01:22→21:31)
[2019-03-05] MEDS: FLAGYL 500 MG/100 ML 500 MG/100 ML BAG IV SCH ×3 (05:57→21:32)
[2019-03-05] MEDS: HumuLIN R SUB-Q SCH ×3 (06:05→17:26)
[2019-03-05 06:56] LABS: Alanine Aminotransferase 11 units/L (7-56); Albumin 2.2 g/dL (3.9-5); BUN/Creatinine Ratio 17; Blood Urea Nitrogen 5 mg/dL (7-17); Hemolysis Index 1
[2019-03-05] MEDS: REGLAN IV SCH (08:02)
--- NOTE | 2019-03-05 09:16 | XRay Report ---
AP ABDOMEN: HISTORY: Abdominal distention. Midline surgical skin venessa are in place consistent with recent abdominal surgery. CT abdomen pelvis with contrast performed 03/04/19 was reviewed. There is persistent diffuse and marked dilatation of bowel loops throughout the abdomen. Severe ileus is suspected. There is no obvious transition point. There is IV contrast in the bladder. The lung bases are not included. IMPRESSION: Diffuse distention of bowel loops suggestive of a moderate to severe ileus.
[2019-03-05] MEDS: LEVAQUIN 500MG/100ML 500 MG/100 ML BAG IV SCH (10:03)
[2019-03-05] MEDS: PEPCID IV SCH (10:03)
[2019-03-05] MEDS: SODIUM CHLORIDE FLUSH SYRINGE 10 ML IV SCH ×2 (10:04→21:32)
[2019-03-05 10:40] LABS: Basophils % (Auto) 1.3 % (0.0-1.8); Eosinophils % (Auto) 2.7 % (0.0-4.3); Hematocrit 23.1 % (30.3-42.9); Lymphocytes % (Auto) 5.7 % (13.4-35.0); Mean Corpuscular HGB Conc 33 % (30-34); Mean Corpuscular Volume 87 fl (79-97); Monocytes % (Auto) 6.1 % (0.0-7.3); Platelet Count 437 K/mm3 (140-440); Red Blood Count 2.64 M/mm3 (3.65-5.03); Red Cell Distribution Width 14.1 % (13.2-15.2)
--- NOTE | 2019-03-05 10:50 | Event Note ---
Date: 03/05/19 Late note: Notified by nursing yesterday evening that patient had fever of 102 and was tachycardic. I advised to treat the patient for the fever and to obtain CtA chest and Ct scan A/P with IV and oral contrast. Studies obtained and imaging/reports reviewed overnight. Dilated bowel with moderate pneumoperitoneum. Left sherri diaphragm significantly elevated. Mesenteric edema in pelvis. Per nursing patient had no complaints. Fever improved after treatment. No n/v, cp, sob, abd pain. She had several BMs during the day. I advised placing an NGT to help with abdominal distension. Notes from this am reviewed - nursing unable to place NGT Discussed with Dr. Bowden who will resume care of patient.
[2019-03-05 10:58] LABS: Hemoglobin 7.6 gm/dl (10.1-14.3)
[2019-03-05 10:59] LABS: Basophils # (Auto) 0.1 K/mm3 (0.0-0.1); Eosinophils # (Auto) 0.3 K/mm3 (0.0-0.4); Lymphocytes # (Auto) 0.7 K/mm3 (1.2-5.4); Monocytes # (Auto) 0.7 K/mm3 (0.0-0.8)
[2019-03-05] MEDS: FLEET PR SCH (13:08)
--- NOTE | 2019-03-05 13:30 | Progress Note ---
Assessment and Plan - Patient Problems (1) Intestinal obstruction Current Visit: Yes Status: Acute Qualifiers: Intestinal obstruction type: other intestinal obstruction Intestinal obstruction extent: partial Qualified Code(s): K56.690 - Other partial intestinal obstruction Plan to address problem: Pt stable. HD#17. s/p Ex lap and EUNICE - 02/28 POD#5. Abd mildly dilated. Patient indicates that this is normal for her. The free air on CT is most likely residual from recent open procedure. No concerns on clinical exam other than mild distention which is less than before surgery and she is having good bowel movements. I think her gut dysfunction has contributed to her stomach being bloated which would explain why this feels normal for her. Will continue with clears and TPN for now. Fever - work up is essentially neg so far. Will continue empiric abx for now. I think this is coming from her atelectatic left lung. She can barely get 500cc on IS today. Will ask RT to assist with pulm toilet for atelectasis. Anemia - I think this is probably part baseline and partly down due to blood draws. No evidence of active bleed. Will restart Lovenox as she is stable. With the additional hydration, I am sure that the Hgb will go down further. May ultimately need transfusion. Will monitor and discuss with her and mother. Dispo - Home soon with TPN once fevers resolve. Ultimately, will need to get her to a intestinal dysfunction clinic. Pt aware of plan. Everything written out for her. Subjective Date of service: 03/05/19 Patient Reports: Positive: no new complaints, feels better, tolerating liquids well, bowel movement (large bowel movement today - 4 total recently) Objective Vital Signs - 12hr 03/05/19 03/05/19 03/05/19 04:40 04:41 12:20 Temperature 97.7 F 100.5 F H Pulse Rate 102 H 125 H Respiratory 17 18 Rate Blood Pressure 102/71 111/72 O2 Sat by Pulse 100 97 Oximetry - General physical appearance no distress, no pain - Eyes normal occular movement - Abdomen soft, not tender, bowel sounds hypoactive, distended (moderate. Not as much as prior to surgery), surgical scars (C/D/I) - Integumentary no rash, no growths, no abnormal pigmentation - Labs 03/05/19 10:10 03/05/19 06:15 Diabetes panel 03/05/19 Range/Units 06:15 Sodium 138 (137-145) mmol/L Potassium 3.4 L (3.6-5.0) mmol/L Chloride 100.7 (98-107) mmol/L Carbon Dioxide 27 (22-30) mmol/L BUN 5 L (7-17) mg/dL Creatinine 0.3 L (0.7-1.2) mg/dL Glucose 108 H (65-100) mg/dL Calcium 8.0 L (8.4-10.2) mg/dL AST 15 (5-40) units/L ALT 11 (7-56) units/L Alkaline Phosphatase 72 (35-129) units/L Total Protein 5.9 L (6.3-8.2) g/dL Albumin 2.2 L (3.9-5) g/dL Calcium panel 03/05/19 Range/Units 06:15 Calcium 8.0 L (8.4-10.2) mg/dL Phosphorus 3.60 (2.5-4.5) mg/dL Albumin 2.2 L (3.9-5) g/dL Pituitary panel 03/05/19 Range/Units 06:15 Sodium 138 (137-145) mmol/L Potassium 3.4 L (3.6-5.0) mmol/L Chloride 100.7 (98-107) mmol/L Carbon Dioxide 27 (22-30) mmol/L BUN 5 L (7-17) mg/dL Creatinine 0.3 L (0.7-1.2) mg/dL Glucose 108 H (65-100) mg/dL Calcium 8.0 L (8.4-10.2) mg/dL Adrenal panel 03/05/19 Range/Units 06:15 Sodium 138 (137-145) mmol/L Potassium 3.4 L (3.6-5.0) mmol/L Chloride 100.7 (98-107) mmol/L Carbon Dioxide 27 (22-30) mmol/L BUN 5 L (7-17) mg/dL Creatinine 0.3 L (0.7-1.2) mg/dL Glucose 108 H (65-100) mg/dL Calcium 8.0 L (8.4-10.2) mg/dL Total Bilirubin 0.30 (0.1-1.2) mg/dL AST 15 (5-40) units/L ALT 11 (7-56) units/L Alkaline Phosphatase 72 (35-129) units/L Total Protein 5.9 L (6.3-8.2) g/dL Albumin 2.2 L (3.9-5) g/dL - Imaging Abdominal x-ray: report reviewed, image reviewed CT scan - abdomen: report reviewed, image reviewed CT scan - chest: report reviewed, image reviewed CT scan - pelvis: report reviewed, image reviewed
[2019-03-05] MEDS ORDERED: TPN ADULT 2,016 ML IV SCH (20:00)
[2019-03-06] MEDS: HumuLIN R SUB-Q SCH ×4 (02:10→18:42)
[2019-03-06] MEDS: FLAGYL 500 MG/100 ML 500 MG/100 ML BAG IV SCH ×3 (05:01→21:46)
[2019-03-06 06:30] LABS: BUN/Creatinine Ratio 23; Blood Urea Nitrogen 7 mg/dL (7-17); Calcium 8.2 mg/dL (8.4-10.2); Hemolysis Index 0
[2019-03-06] MEDS ORDERED: LOVENOX SUB-Q SCH (10:00)
[2019-03-06] MEDS ORDERED: MAGNESIUM SULFATE 2GM/50ML 2 GM/50 ML BAG IV ONE (11:00)
[2019-03-06] MEDS: LOVENOX SUB-Q SCH (11:25)
[2019-03-06] MEDS: PEPCID IV SCH (11:29)
[2019-03-06] MEDS: FLEET PR SCH (12:34)
[2019-03-06] MEDS: SODIUM CHLORIDE FLUSH SYRINGE 10 ML IV SCH ×2 (12:35→21:47)
--- NOTE | 2019-03-06 16:16 | Progress Note ---
Assessment and Plan - Patient Problems (1) Intestinal obstruction Current Visit: Yes Status: Acute Qualifiers: Intestinal obstruction type: other intestinal obstruction Intestinal obstruction extent: partial Qualified Code(s): K56.690 - Other partial intestinal obstruction Plan to address problem: Pt stable. HD#18. s/p Ex lap and EUNICE - 02/28 POD#6. Abd mildly dilated. Patient indicates that this is normal for her. Mother disagrees. No concerns on clinical exam other than mild distention which is less than before surgery and she is having good bowel movements. I think her gut dysfunction has contributed to her stomach being bloated which would explain why this feels normal for her. Will continue with clears and TPN for now. Fever - work up is essentially neg so far. Will continue empiric abx for now. I think this is coming from her atelectatic left lung. This may be secondary to left hemidiaphragm dysfunction as it is staying very high on multiple different studies. IS a little better. Will ask RT to assist with pulm toilet for atelectasis. Anemia - I think this is probably part baseline and partly down due to blood draws. No evidence of active bleed. Will continue Lovenox as she is stable. With the additional hydration, I am sure that the Hgb will go down further. May ultimately need transfusion. Will monitor and discuss with her and mother. Dispo - Home soon with TPN once fevers resolve. Also discussed option of going home with occasional fevers if she is otherwise feeling well. Mother understands and agrees. Ultimately, will need to get her to a intestinal dysfunction clinic. Brought mother over to clinic to sign med release forms so I can get records from [place]. Pt aware of plan. Everything written out for her. Subjective Date of service: 03/06/19 Patient Reports: Positive: no new complaints, feels better, pain is less, tolerating liquids well, flatus, bowel movement, fever, other (enema works well). Negative: nausea, vomiting, shortness of breath Objective Vital Signs - 12hr 03/06/19 03/06/19 03/06/19 05:07 07:00 12:00 Temperature 98.7 F 100.3 F H 101.4 F H Pulse Rate 109 H 121 H 120 H Respiratory 20 19 18 Rate Blood Pressure 102/66 Blood Pressure 112/72 112/71 [Left] O2 Sat by Pulse 99 98 97 Oximetry - General physical appearance no distress, no pain, other (looks good, other than abdominal distention) - Eyes normal occular movement - Respiratory normal respiratory effort, other (better IS effort. Getting between 500-1000cc. still with short breaths during IS) - Abdomen soft, not tender, bowel sounds hypoactive, distended (stable), not guarding, not rigid, surgical scars (C/D/I) - Integumentary no rash, no growths, no abnormal pigmentation - Labs 03/05/19 10:10 03/06/19 05:10 Diabetes panel 03/06/19 Range/Units 05:10 Sodium 140 (137-145) mmol/L Potassium 3.6 (3.6-5.0) mmol/L Chloride 102.0 (98-107) mmol/L Carbon Dioxide 24 (22-30) mmol/L BUN 7 (7-17) mg/dL Creatinine 0.3 L (0.7-1.2) mg/dL Glucose 90 (65-100) mg/dL Calcium 8.2 L (8.4-10.2) mg/dL Calcium panel 03/06/19 Range/Units 05:10 Calcium 8.2 L (8.4-10.2) mg/dL Phosphorus 4.00 (2.5-4.5) mg/dL Pituitary panel 03/06/19 Range/Units 05:10 Sodium 140 (137-145) mmol/L Potassium 3.6 (3.6-5.0) mmol/L Chloride 102.0 (98-107) mmol/L Carbon Dioxide 24 (22-30) mmol/L BUN 7 (7-17) mg/dL Creatinine 0.3 L (0.7-1.2) mg/dL Glucose 90 (65-100) mg/dL Calcium 8.2 L (8.4-10.2) mg/dL Adrenal panel 03/06/19 Range/Units 05:10 Sodium 140 (137-145) mmol/L Potassium 3.6 (3.6-5.0) mmol/L Chloride 102.0 (98-107) mmol/L Carbon Dioxide 24 (22-30) mmol/L BUN 7 (7-17) mg/dL Creatinine 0.3 L (0.7-1.2) mg/dL Glucose 90 (65-100) mg/dL Calcium 8.2 L (8.4-10.2) mg/dL
[2019-03-06] MEDS: LEVAQUIN 500MG/100ML 500 MG/100 ML BAG IV SCH (18:37)
[2019-03-06] MEDS ORDERED: TPN ADULT 2,016 ML IV SCH (20:00)
[2019-03-06] MEDS: NORCO 5/325 PO PRN (21:46)
[2019-03-07] MEDS: HumuLIN R SUB-Q SCH ×4 (00:31→18:02)
[2019-03-07 06:39] LABS: Hematocrit 21.2 % (30.3-42.9); Mean Corpuscular HGB Conc 33 % (30-34); Mean Corpuscular Volume 88 fl (79-97); Platelet Count 405 K/mm3 (140-440); Red Blood Count 2.41 M/mm3 (3.65-5.03); Red Cell Distribution Width 14.9 % (13.2-15.2)
[2019-03-07] MEDS: NORCO 5/325 PO PRN (06:47)
[2019-03-07] MEDS: FLAGYL 500 MG/100 ML 500 MG/100 ML BAG IV SCH ×3 (06:47→21:26)
[2019-03-07] MEDS: NACL 0.45% 1000 ML 1,000 ML IV SCH (07:00)
[2019-03-07 07:08] LABS: BUN/Creatinine Ratio 33; Blood Urea Nitrogen 10 mg/dL (7-17); Calcium 7.8 mg/dL (8.4-10.2); Hemolysis Index 1
--- NOTE | 2019-03-07 09:07 | Progress Note ---
Assessment and Plan - Patient Problems (1) Intestinal obstruction Current Visit: Yes Status: Acute Qualifiers: Intestinal obstruction type: other intestinal obstruction Intestinal obstruction extent: partial Qualified Code(s): K56.690 - Other partial intestinal obstruction Plan to address problem: Pt stable. HD#19. s/p Ex lap and EUNICE - 02/28 POD#7. Abd mildly dilated - less today! No fevers yesterday! I think it is related to the atelectasis. Will recheck urine culture as a precaution. WBC normal today. I think partly hemoconcentration was a contributing factor. Will try advancing diet to full liquids. Fever - work up is essentially neg so far. Will continue empiric abx for now. I think this is coming from her atelectatic left lung. This may be secondary to left hemidiaphragm dysfunction as it is staying very high on multiple different studies. IS a little better. Will ask RT to assist with pulm toilet for atelectasis. Anemia - I think this is probably part baseline and partly down due to blood draws. No evidence of active bleed. Will continue Lovenox as she is stable. With the additional hydration, I am sure that the Hgb will go down further. Pt denies any lightheadedness or dizziness with ambulation. Start iron replacement today. Dispo - Home tomorrow with TPN. Also discussed option of going home with occasional fevers if she is otherwise feeling well. Mother understands and agrees. Ultimately, will need to get her to a intestinal dysfunction clinic. Pt aware of plan. Everything written out for her. Subjective Date of service: 03/07/19 Patient Reports: Positive: no new complaints, feels better, tolerating liquids well, flatus, bowel movement, afebrile. Negative: nausea, vomiting Objective Vital Signs - 12hr 03/06/19 03/06/19 03/07/19 21:46 23:22 04:31 Temperature 97.8 F 98.6 F Pulse Rate 111 H 115 H Respiratory 18 18 19 Rate Blood Pressure 106/48 120/73 Blood Pressure [Left] O2 Sat by Pulse 94 96 Oximetry 03/07/19 07:25 Temperature 99.3 F Pulse Rate 119 H Respiratory 18 Rate Blood Pressure Blood Pressure 99/57 [Left] O2 Sat by Pulse 93 Oximetry - General physical appearance no distress, no pain, other (looks better) - Eyes normal occular movement - Respiratory other (slight increased work of breathing (no change). improved IS vol - consistently above 500cc) - Abdomen soft, tender, distended (less today), not guarding, not rigid, surgical scars (C/D/I) - Integumentary no rash, no growths, no abnormal pigmentation - Labs 03/07/19 06:10 03/07/19 06:10 Diabetes panel 03/07/19 Range/Units 06:10 Sodium 139 (137-145) mmol/L Potassium 4.5 D (3.6-5.0) mmol/L Chloride 105.9 (98-107) mmol/L Carbon Dioxide 25 (22-30) mmol/L BUN 10 (7-17) mg/dL Creatinine 0.3 L (0.7-1.2) mg/dL Glucose 121 H (65-100) mg/dL Calcium 7.8 L (8.4-10.2) mg/dL Calcium panel 03/07/19 Range/Units 06:10 Calcium 7.8 L (8.4-10.2) mg/dL Phosphorus 2.90 D (2.5-4.5) mg/dL Pituitary panel 03/07/19 Range/Units 06:10 Sodium 139 (137-145) mmol/L Potassium 4.5 D (3.6-5.0) mmol/L Chloride 105.9 (98-107) mmol/L Carbon Dioxide 25 (22-30) mmol/L BUN 10 (7-17) mg/dL Creatinine 0.3 L (0.7-1.2) mg/dL Glucose 121 H (65-100) mg/dL Calcium 7.8 L (8.4-10.2) mg/dL Adrenal panel 03/07/19 Range/Units 06:10 Sodium 139 (137-145) mmol/L Potassium 4.5 D (3.6-5.0) mmol/L Chloride 105.9 (98-107) mmol/L Carbon Dioxide 25 (22-30) mmol/L BUN 10 (7-17) mg/dL Creatinine 0.3 L (0.7-1.2) mg/dL Glucose 121 H (65-100) mg/dL Calcium 7.8 L (8.4-10.2) mg/dL
[2019-03-07 09:42] LABS: Band Neutrophils # (Manual) 0.1 K/mm3; Basophils % (Manual) 0 % (0.0-1.8); Platelet Estimate Consistent w Auto; RBC Morphology Normal; Total Cells Counted 100
[2019-03-07] MEDS: LEVAQUIN 500MG/100ML 500 MG/100 ML BAG IV SCH (09:58)
[2019-03-07] MEDS: FLEET PR SCH (09:58)
[2019-03-07] MEDS: LOVENOX SUB-Q SCH (09:58)
[2019-03-07] MEDS: PEPCID IV SCH (09:58)
[2019-03-07] MEDS: SODIUM CHLORIDE FLUSH SYRINGE 10 ML IV SCH ×2 (10:04→21:26)
[2019-03-07] MEDS: FERGON PO SCH (15:10)
[2019-03-07] MEDS: TYLENOL PO PRN (18:17)
[2019-03-07] MEDS ORDERED: TPN ADULT 2,016 ML IV SCH (20:00)
[2019-03-08] MEDS: FLAGYL 500 MG/100 ML 500 MG/100 ML BAG IV SCH ×3 (05:34→23:32)
[2019-03-08] MEDS: HumuLIN R SUB-Q SCH ×4 (06:21→17:24)
[2019-03-08 08:35] LABS: BUN/Creatinine Ratio 23; Blood Urea Nitrogen 7 mg/dL (7-17); Calcium 7.9 mg/dL (8.4-10.2); Hemolysis Index 0
[2019-03-08] MEDS: LEVAQUIN 500MG/100ML 500 MG/100 ML BAG IV SCH (09:20)
[2019-03-08] MEDS: FERGON PO SCH (09:20)
[2019-03-08] MEDS: FLEET PR SCH (09:20)
[2019-03-08] MEDS: PEPCID IV SCH (09:20)
[2019-03-08] MEDS: SODIUM CHLORIDE FLUSH SYRINGE 10 ML IV SCH ×2 (09:20→23:33)
[2019-03-08] MEDS: LOVENOX SUB-Q SCH (09:20)
--- NOTE | 2019-03-08 14:27 | Discharge Summary ---
Providers - Providers Date of Admission: 02/17/19 15:00 Date of discharge: 03/09/19 Attending physician: MERLY ZARATE MD 02/17/19 13:47 Consult to Physician [CONS] Urgent Comment: CONSULT COMPLETED Consulting Provider: MERLY ZARATE Physician Instructions: Reason For Exam: abd distention post op 02/21/19 10:43 Consult to Dietitian/Nutrition [CONS] Routine Physician Instructions: Reason For Exam: Reason for Consult: Write/Manage TPN/PPN Consult to PICC Line RN [CONS] Routine Reason For Exam: Please place PICC line Type Line:: PICC 02/28/19 16:05 PICC Line Insertion [Consult to PICC Line RN] [CONS] Routine Reason For Exam: Please place PICC line Type Line:: PICC 03/06/19 16:11 Consult to Case Management [CONS] Routine Services Needed at Discharge: Other Notified:: [employer] Additional Physician Instructions: Please arrange for home TPN - anticipate d/c home in 48 hours Hospitalization Reason for admission: bowel distention Condition: Fair Pertinent studies: CT Abd/pel Procedures: Ex Lap and lysis of adhesions. Hospital course: Neuro - no new issues. Pt has congenital deafness. There were no changes. CV - Pt was tachycardic through most of the hospitalization. Etiologies were dehydration, fever, discomfort, and anemia. Pt was resuscitated. Fevers were treated with pulmonary toilet as the etiology was felt to be atelectasis after work-up was neg. She was also given tylenol. Anemia was addressed with iron supplements. The patient was otherwise asymtomatic so the need for transfusion was felt to be low. Pulm - Marked consolidation was noted of left lung. Her left hemidiaphragm was noted to be quite elevated. This is more than would be expected from simple intra-abdominal pressure. This is probably a chronic issue for her. However, it is contributed to compression of the left lung. We educated and encouraged aggressive pulmonary toilet. Her IS was initially less than 500cc. Her breathing improved with this management. No infection or PE was ever found. GI - Pt presented with significant bowel distention. After conservative manag ement did not seem to work, pt was taken for ex-lap. Found to have an adhesive band that was away from the site of the last operation. This was not an area that was exposed during the last operation. This must be an old adhesion. Bowel was otherwise ok. She has intestinal dysfunction of unknown etiology. Her distention is primarily air. There was very little fluid in there. Her distention did improve with time, but did not completely resolve. She had no discomfort and was tolerating a full liquid diet at the end. She was on scheduled enemas to help with maintaining bowel clearance. Plan to start erythromycin as an out-pt (not available in hospital). Also trying to obtain old records from [place] to understand what they found and what work-up was completed. - no issues. No infections. ID - no infection found. Nutrition - As I felt it would be a while before we could provide full oral nutrition, she was started early on TPN and will be continued at home. DVT/PE - none. Was given prophylaxis with lovenox. Held briefly when Hgb came down -- was most likely dilutional. Dispo - discharged in stable condition. Will have short term follow-up in office. Disposition: DC/TX- HOME UNDER [facility] Time spent for discharge: 30min - Discharge Diagnoses (1) Intestinal obstruction Status: Acute Qualifiers: Intestinal obstruction type: other intestinal obstruction Intestinal obstruction extent: partial Qualified Code(s): K56.690 - Other partial intestinal obstruction Core Measure Documentation - Palliative Care Palliative Care/ Comfort Measures: Not Applicable - Core Measures Any of the following diagnoses?: none - VTE Discharge Requirements Deep Vein Thrombosis/Pulmonary Embolism Present on Admission: No Has pt received <5 days of overlap therapy or INR<2.0: No Anticoagulant overlap therapy prescribed at discharge: No Contraindication No Overlap Therapy order at DC: Not Indicated Exam - Constitutional Vitals: Temp Pulse Resp BP Pulse Ox 98 F 110 H 18 116/76 96 03/08/19 12:20 03/08/19 12:20 03/08/19 12:20 03/08/19 12:20 03/08/19 12:20 General appearance: Present: no acute distress, other (looks good. does not appear ill) - EENT Eyes: Present: EOM intact - Respiratory Respiratory effort: labored (minimally) Respiratory: left: diminished - Cardiovascular Rhythm: regular (mild tachy) - Extremities Extremities: no ischemia, No edema, normal temperature - Abdominal General gastrointestinal: Present: soft, non-tender, distended (less than admission), hypoactive bowel sounds - Integumentary Integumentary: Present: clear, warm, dry - Psychiatric Psychiatric: appropriate mood/affect, intact judgment & insight Plan Activity: advance as tolerated Diet: thickened liquids Wound: open to air, keep clean and dry, change dressing (on right lower quadrant wound. Change with dry gauze daily) Special Instructions: no heavy lifting Additional Instructions: May shower, but wrap PICC line so that it does not get wet Follow up with: [facility] [Other] - 3-5 Days MERLY ZARATE MD [Staff Physician] - 03/12/19 11:00 am Prescriptions: Erythromycin Ethylsucc Susp [E.e.s. 200] 200 mg PO QID 14 Days #300 oral.liqd Ferrous Gluconate [Fergon 325 MG tab] 324 mg PO QDAY #30 tablet Na Biphos/Na Phosp [Fleet] 133 ml IA QDAY #30 bottle HYDROcodone/APAP 5-325 [Crosby 5-325 mg TAB] 1 each PO Q6H PRN #20 tablet PRN Reason: Pain, Moderate (4-6)
--- NOTE | 2019-03-08 16:01 | Event Note ---
Date: 03/08/19 TPN will not be ready for home tonight. Discharge delayed until tomorrow morning when TPN ready.
[2019-03-08] MEDS: NACL 0.45% 1000 ML 1,000 ML IV SCH (16:14)
[2019-03-08] MEDS ORDERED: TPN ADULT 2,016 ML IV SCH (20:00)
[2019-03-09] MEDS: HumuLIN R SUB-Q SCH ×2 (01:36→07:09)
[2019-03-09] MEDS: FLAGYL 500 MG/100 ML 500 MG/100 ML BAG IV SCH (05:44)
[2019-03-09 06:23] LABS: BUN/Creatinine Ratio 30; Blood Urea Nitrogen 6 mg/dL (7-17); Calcium 6.2 mg/dL (8.4-10.2); Hemolysis Index 4
[2019-03-09] MEDS: FERGON PO SCH (10:32)
[2019-03-09] MEDS: LEVAQUIN 500MG/100ML 500 MG/100 ML BAG IV SCH (10:32)
[2019-03-09] MEDS: LOVENOX SUB-Q SCH (10:32)
[2019-03-09] MEDS: PEPCID IV SCH (10:32)
[2019-03-09] MEDS: FLEET PR SCH (10:49)
[2019-03-09 12:52] VITALS: BP 121/78
== END 2019-03-09 16:57 | disposition home health service (06) | DRG 336 ==
LOC: ED 10:45 → 3B-SURG 15:00
PROVIDERS: ADMIT Surgery; ATTEND Surgery
PROC: 3E0436Z Introduction of Nutritional Substance into Central Vein, Percutaneous Approach (ICD-10-PCS; 2019-02-18)
PROC: 0D9670Z Drainage of Stomach with Drainage Device, Via Natural or Artificial Opening (ICD-10-PCS; 2019-02-21)
PROC: 0DN80ZZ Release Small Intestine, Open Approach (ICD-10-PCS; principal; 2019-02-28)
PROC: 02HV33Z Insertion of Infusion Device into Superior Vena Cava, Percutaneous Approach (ICD-10-PCS; 2019-03-02)
PROC: B5181ZA Fluoroscopy of Superior Vena Cava using Low Osmolar Contrast, Guidance (ICD-10-PCS; 2019-03-02)
DX: K56.51 Intestinal adhesions [bands], with partial obstruction (principal); E87.1 Hypo-osmolality and hyponatremia; E87.2 Acidosis; R50.9 Fever, unspecified; E87.8 Other disorders of electrolyte and fluid balance, not elsewhere classified; E83.39 Other disorders of phosphorus metabolism; E86.0 Dehydration; D64.9 Anemia, unspecified; Z93.2 Ileostomy status; K43.5 Parastomal hernia without obstruction or gangrene; Z93.3 Colostomy status
CPT/HCPCS: 36415; 71045; 71275; 74018; 74019; 74022; 74177; 74250; 80048; 80053; 81001; 81025; 82947; 82962; 83690; 83735; 84100; 84132; 84134; 84295; 84478; 84703; 85007; 85025; 85027; 86850; 86900; 86901; 87040; 87086; 87116; 93970; G0378; J0690; J1100; J1170; J1650; J1885; J1956; J2270; J2405; J2543; J2704; J2765; J2997; J3475; J3480; J7030; J7040; J7042; J7120; Q9963; Q9967

== ENCOUNTER 2019-03-20 13:27 | Outpatient (CLI) | payer MEDICAID ==
[2019-03-20 13:57] LABS: Hematocrit 31.3 % (30.3-42.9); Hemoglobin 10.1 gm/dl (10.1-14.3); Mean Corpuscular HGB Conc 32 % (30-34); Mean Corpuscular Volume 89 fl (79-97); Platelet Count 380 K/mm3 (140-440); Red Blood Count 3.52 M/mm3 (3.65-5.03)
== END 2019-03-20 13:28 | disposition home or self-care (01) ==
LOC: LAB 13:27
PROVIDERS: ATTEND Surgery
DX: K56.609 Unspecified intestinal obstruction, unspecified as to partial versus complete obstruction (principal)
CPT/HCPCS: 36415; 85027

== ENCOUNTER 2019-03-29 14:52 | Inpatient (IN) | payer MEDICAID ==
--- NOTE | 2019-03-29 15:20 | Emergency Department Report ---
Blank Doc - Documentation Documentation: 24 yo deaf female present to ed with URI sx was sent from Dr Bowden'office to rule out pneumonia. cxr ordered ACC eval
--- NOTE | 2019-03-29 16:21 | XRay Report ---
PROCEDURE: XR CHEST ROUTINE 2V TECHNIQUE: PA and lateral chest radiographs were obtained. HISTORY: fever/cough COMPARISONS: Chest radiograph performed on 03/02/2019 Abdominal radiograph performed on 03/05/2018. FINDINGS: Right upper extremity PICC line with tip of the catheter in the superior vena cava. The cardiomediastinal silhouette is normal in appearance. There is elevation of the left hemidiaphragm with associated atelectasis at the left lung base. There are diffusely distended loops of bowel throughout the abdomen. No free air within the limits of the study. No acute bony or soft tissue abnormality. IMPRESSION: Elevation of the left hemidiaphragm with associated atelectasis at the left lung base. Gas distended loops of bowel throughout the abdomen concerning for bowel obstruction versus ileus. Re commend clinical correlation. This document is electronically signed by Becki Hull MD., Mar 29 2019 04:19:29 PM ET
[2019-03-29] MEDS ORDERED: MAXIPIME/NS 1 GM/100 ML 1 GM/100 ML BAG IV ONE (17:52)
--- NOTE | 2019-03-29 18:15 | Emergency Department Report ---
ED Fever HPI - General Chief Complaint: Fever Stated Complaint: COUGH/FEVER Time Seen by Provider: 03/29/19 18:15 Source: patient, family Exam Limitations: language barrier - History of Present Illness Initial Comments: Patient is a 24-year-old female that presents emergency room with complaints of cough and fever. Patient states she was at Dr. Bowden's office today and he sen t her here for evaluation to rule out pneumonia. Patient states she had a reversal of her colostomy recently and is having a lot of abdominal distention. Patient states there is no change in her abdominal and has no abdominal pain. Patient only complains of occasional nausea and constipation at times. Patient states her cough and fever been going on for 5 days. Family is at bedside to do sign language. Patient has difficulty hearing but patient can read lips. 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 denies: abdominal pain, chest pain, confusion, diaphoresis, headache, muscle aches, nausea/vomiting, rash, shortness of breath, sore throat, stiff neck, syncope, weakness ED Review of Systems ROS: Stated complaint: COUGH/FEVER Other details as noted in HPI Constitutional: fever. denies: chills Eyes: denies: eye pain, eye discharge, vision change ENT: denies: ear pain, throat pain Respiratory: cough. denies: shortness of breath, wheezing Cardiovascular: denies: chest pain, palpitations Endocrine: no symptoms reported Gastrointestinal: nausea, constipation. denies: abdominal pain, vomiting, diarrhea Genitourinary: denies: urgency, dysuria, discharge Musculoskeletal: denies: back pain, joint swelling, arthralgia Skin: denies: rash, lesions Neurological: denies: headache, weakness, paresthesias Psychiatric: denies: anxiety, depression Hematological/Lymphatic: denies: easy bleeding, easy bruising ED Past Medical Hx - Past Medical History Previous Medical History?: Yes Hx Hypertension: No Hx Heart Attack/AMI: No Hx Deep Vein Thrombosis: No Hx Liver Disease: No Hx Renal Disease: No Hx Seizures: No Hx Asthma: No Hx HIV: No Additional medical history: deaf, reocurring volvulus - Surgical History Past Surgical History?: Yes Hx Pacemaker: No Hx Internal Defibrillator: No Additional Surgical History: colostomy x 2 - Family History Family history: no significant - Social History Smoking Status: Never Smoker Substance Use Type: None - Medications Home Medications: Home Medications Medication Instructions Recorded Confirmed Last Taken Type Bisacodyl [Dulcolax suppos] 10 mg [place] Q72H PRN #10 supp.rect 01/30/19 02/17/19 Unknown Rx Glycerin Adult 2 gm 1 supp [place] QDAY PRN #30 supp.rect 01/30/19 02/17/19 Unknown Rx Ibuprofen 600 mg PO Q6HRT PRN 02/17/19 02/17/19 Unknown History Acetaminophen [Acetaminophen TAB] 650 mg PO Q4H PRN tablet 03/08/19 Unknown Rx Erythromycin Ethylsucc Susp 200 mg PO QID 14 Days #300 03/08/19 Unknown Rx [E.e.s. 200] oral.liqd Ferrous Gluconate [Fergon 325 MG 324 mg PO QDAY #30 tablet 03/08/19 Unknown Rx tab] HYDROcodone/APAP 5-325 [[place] 1 each PO Q6H PRN #20 tablet 03/08/19 Unknown Rx 5-325 mg TAB] Na Biphos/Na Phosp [Fleet] 133 ml [place] QDAY #30 bottle 03/08/19 Unknown Rx Total Parenteral Nutrition [TPN 1 ml IV DAILY@2000 #30 ml 03/08/19 Unknown Rx Adult] ED Physical Exam - General Limitations: No Limitations General appearance: alert, in no apparent distress - Head Head exam: Present: atraumatic, normocephalic - Eye Eye exam: Present: normal appearance - ENT ENT exam: Present: mucous membranes moist - Expanded ENT Exam Expanded Throat exam: Positive: other (oropharynx redness noted) - Neck Neck exam: Present: normal inspection - Respiratory Respiratory exam: Present: normal lung sounds bilaterally. Absent: respiratory distress - Cardiovascular Cardiovascular Exam: Present: regular rate, normal rhythm. Absent: systolic murmur, diastolic murmur, rubs, gallop - GI/Abdominal GI/Abdominal exam: Present: soft, distended, rigid, normal bowel sounds. Absent: tenderness, guarding, rebound - Rectal Rectal exam: Present: deferred - Extremities Exam Extremities exam: Present: normal inspection - Back Exam Back exam: Present: normal inspection - Neurological Exam Neurological exam: Present: alert, oriented X3 - Skin Skin exam: Present: warm, dry, intact, normal color. Absent: rash ED Course Vital Signs 05/23/19 05/23/19 05/23/19 15:17 17:51 20:17 Temperature 98 F 99.4 F Pulse Rate 135 H 102 H Respiratory 18 17 18 Rate Blood Pressure 111/68 Blood Pressure 103/62 [Left] O2 Sat by Pulse 100 95 Oximetry 03/29/19 03/29/19 03/30/19 21:19 23:24 01:37 Temperature 98.2 F Pulse Rate 110 H 115 H 107 H Respiratory 17 20 30 H Rate Blood Pressure Blood Pressure 103/62 116/63 94/64 [Left] O2 Sat by Pulse 98 97 97 Oximetry - Reevaluation(s) Reevaluation #1: Discussed all results with patient. Patient will be admitted to the hospitalist service. Patient agrees to plan of care. 03/29/19 23:20 Reevaluation #2: Discussed all results with patient. Patient will be admitted to the hospitalist service. Patient agrees to plan of care. 03/29/19 23:30 - Consultations Consultation #1: Scars case with Dr. Bowden. Dr. Bowden states the patient has had chronically dilated loops of bowel and recommends CT scan of the abdomen. 03/29/19 20:10 Consultation #2: Hospitalist consultation for admission. Hospitalist to admit patient. Hospitalist to assume care patient. 03/29/19 23:20 ED Medical Decision Making - Lab Data Result diagrams: 03/29/19 19:30 03/29/19 19:26 - Radiology Data Radiology results: report reviewed PROCEDURE: XR CHEST ROUTINE 2V TECHNIQUE: PA and lateral chest radiographs were obtained. HISTORY: fever/cough COMPARISONS: Chest radiograph performed on 03/02/2019 Abdominal radiograph performed on 03/05/2018. FINDINGS: Right upper extremity PICC line with tip of the catheter in the superior vena cava. The cardiomediastinal silhouette is normal in appearance. There is elevation of the left hemidiaphragm with associated atelectasis at the left lung base. There are diffusely distended loops of bowel throughout the abdomen. No free air within the limits of the study. No acute bony or soft tissue abnormality. IMPRESSION: Elevation of the left hemidiaphragm with associated atelectasis at the left lung base. Gas distended loops of bowel throughout the abdomen concerning for bowel obstruction versus ileus. Recommend clinical correlation. PROCEDURE: CT ABDOMEN PELVIS W CON TECHNIQUE: Computerized axial tomography of the abdomen and pelvis was performed after the IV injection of iodinated nonionic contrast. CT DOSE LENGTH PRODUCT: 286.6 mGycm HISTORY: abd pain, sob COMPARISONS: 03/04/2019 . FINDINGS: Visualized lower thorax: Elevated left hemidiaphragm. Liver: Normal size and attenuation. Spleen: Prominent spleen. Gallbladder and biliary system: Normal. Pancreas: Normal. Adrenals: Normal. Kidneys: Normal. GI tract: There is severe bowel distention throughout the abdomen and pelvis, measuring up to 10.5 cm in caliber, to the level of the anus. There are several anastomotic sutures present, compatible with prior bowel resection. There is resultant elevation of left hemidiaphragm with mass effect on the left heart. Lymph nodes and mesentery: Normal. Vasculature: Normal.. Bladder: Normal. Reproductive organs: 11 mm right ovarian cyst. Peritoneum: Small amount of free fluid in the pelvis. No free air is seen. Musculoskeletal structures: No significant abnormality. Other: None . IMPRESSION: Severe bowel distention to the level of the anus, with bowel loops measuring up to 10.5 cm in caliber, compatible with distal bowel obstruction . There is resultant elevation of the left hemidiaphragm, with mass effect on the left aspect of the mediastinum and heart. - Medical Decision Making She is a 24-year-old female that presents emergency room with cough and fever. Patient found to have a small bowel obstruction. Patient's fever secondary to a URI. Discussed case with Dr. Bowden, Gen. surgery and he wants patient admitted for observation. CT scan was done and it confirms a small bowel obstruction. Dr. Bowden does not want an NG placed. Patient was admitted to the hospitalist service. Labs unremarkable. - Differential Diagnosis SBO. Gastroenteritis. URI. Fever. . Cough. Critical Care Time: Yes Critical care attestation.: If time is entered above; I have spent that time in minutes in the direct care of this critically ill patient, excluding procedure time. Critical Care Time: 45 minutes ED Disposition Clinical Impression: Nausea, Dilated bowel, Cough Fever Qualifiers: Fever type: unspecified Qualified Code(s): R50.9 - Fever, unspecified Bowel obstruction Qualifiers: Intestinal obstruction type: unspecified Intestinal obstruction extent: complete Qualified Code(s): K56.601 - Complete intestinal obstruction, unspecified as to cause URI (upper respiratory infection) Qualifiers: URI type: unspecified URI Qualified Code(s): J06.9 - Acute upper respiratory infection, unspecified Anemia Qualifiers: Anemia type: unspecified type Qualified Code(s): D64.9 - Anemia, unspecified Disposition: OP ADMIT IP TO THIS HOSP Is pt being admited?: Yes Does the pt Need Aspirin: No Condition: Critical Referrals: RADHA BAEZ MD [Primary Care Provider] - 3-5 Days Time of Disposition: 23:22
[2019-03-29 19:02] LABS: Hematocrit TNR % (30.3-42.9); Hemoglobin TNR gm/dl (10.1-14.3); Lymphocytes % (Auto) TNR % (13.4-35.0); Mean Corpuscular HGB Conc TNR % (30-34); Mean Corpuscular Volume TNR fl (79-97); Mean Platelet Volume TNR fl (6-12); Platelet Count TNR K/mm3 (140-440); Red Blood Count TNR M/mm3 (3.65-5.03); Red Cell Distribution Width TNR % (13.2-15.2)
[2019-03-29 19:03] LABS: Basophils % (Auto) TNR % (0.0-1.8); Eosinophils % (Auto) TNR % (0.0-4.3); Monocytes % (Auto) TNR % (0.0-7.3)
[2019-03-29 19:04] LABS: Basophils # (Auto) TNR K/mm3 (0.0-0.1); Eosinophils # (Auto) TNR K/mm3 (0.0-0.4); Lymphocytes # (Auto) TNR K/mm3 (1.2-5.4); Monocytes # (Auto) TNR K/mm3 (0.0-0.8)
[2019-03-29 19:25] LABS: BUN/Creatinine Ratio TNR; Blood Urea Nitrogen TNR mg/dL (7-17)
[2019-03-29 19:26] LABS: Alanine Aminotransferase TNR units/L (7-56); Albumin TNR g/dL (3.9-5); Calcium TNR mg/dL (8.4-10.2); Hemolysis Index TNR
[2019-03-29 19:45] LABS: Hematocrit 25.2 % (30.3-42.9); Hemoglobin 8.4 gm/dl (10.1-14.3); Lymphocytes # (Auto) 0.6 K/mm3 (1.2-5.4); Lymphocytes % (Auto) 15.9 % (13.4-35.0); Mean Corpuscular HGB Conc 33 % (30-34); Mean Corpuscular Volume 84 fl (79-97); Monocytes # (Auto) 0.2 K/mm3 (0.0-0.8); Monocytes % (Auto) 6.4 % (0.0-7.3); Red Blood Count 2.99 M/mm3 (3.65-5.03); Red Cell Distribution Width 17.5 % (13.2-15.2)
[2019-03-29 20:03] LABS: Alanine Aminotransferase 159 units/L (7-56); Albumin 3.1 g/dL (3.9-5); BUN/Creatinine Ratio 32; Blood Urea Nitrogen 16 mg/dL (7-17); Calcium 8.5 mg/dL (8.4-10.2); Hemolysis Index 1
[2019-03-29 20:35] LABS: Platelet Count 49 K/mm3 (140-440)
--- NOTE | 2019-03-29 21:30 | Event Note ---
Date: 03/29/[address] Akers. Pt is well known to our service. She has a chronic intestinal dysfunction. The appearance of the small bowel is a chronic issue for her. She has no symptoms of obstruction. She was seen in the office earlier today and had no abdominal complaints. Will be happy to follow along during her hospitalization.
[2019-03-29 22:43] LABS: Bilirubin,Urine NEG (Negative); Blood,Urine SM (Negative); Color,Urine Amber (Yellow); Mucus,Urine 3+ /HPF
--- NOTE | 2019-03-29 23:08 | Cat Scan Report ---
PROCEDURE: CT ABDOMEN PELVIS W CON TECHNIQUE: Computerized axial tomography of the abdomen and pelvis was performed after the IV inject ion of iodinated nonionic contrast. CT DOSE LENGTH PRODUCT: 286.6 mGycm HISTORY: abd pain, sob COMPARISONS: 03/04/2019 . FINDINGS: Visualized lower thorax: Elevated left hemidiaphragm. Liver: Normal size and attenuation. Spleen: Prominent spleen. Gallbladder and biliary system: Normal. Pancreas: Normal. Adrenals: Normal. Kidneys: Normal. GI tract: There is severe bowel distention throughout the abdomen and pelvis, measuring up to 10.5 c m in caliber, to the level of the anus. There are several anastomotic sutures present, compatible wit h prior bowel resection. There is resultant elevation of left hemidiaphragm with mass effect on the l eft heart. Lymph nodes and mesentery: Normal. Vasculature: Normal.. Bladder: Normal. Reproductive organs: 11 mm right ovarian cyst. Peritoneum: Small amount of free fluid in the pelvis. No free air is seen. Musculoskeletal structures: No significant abnormality. Other: None . IMPRESSION: Severe bowel distention to the level of the anus, with bowel loops measuring up to 10.5 cm in caliber , compatible with distal bowel obstruction . There is resultant elevation of the left hemidiaphragm, with mass effect on the left aspect of the mediastinum and heart. This document is electronically signed by Geetha Davis MD., Mar 29 2019 11:06:58 PM ET
[2019-03-29] MEDS ORDERED: NACL 0.9% 1000 ML 1,000 ML IV ONE (23:23)
[2019-03-30] MEDS ORDERED: ZOFRAN IV PRN (00:56)
[2019-03-30] MEDS ORDERED: SODIUM CHLORIDE FLUSH SYRINGE 10 ML IV PRN (00:56)
[2019-03-30] MEDS ORDERED: MORPHINE IV PRN (00:56)
[2019-03-30] MEDS ORDERED: NACL 0.9% 1000 ML 1,000 ML IV SCH (01:00)
[2019-03-30] MEDS ORDERED: ROBITUSSIN PO PRN (01:05)
--- NOTE | 2019-03-30 02:42 | History and Physical Report ---
<SAMUEL KYLE - Last Filed: 03/30/19 02:46> History of Present Illness Date of examination: 03/29/19 Date of admission: 03/29/2019 Chief complaint: Fever and cough with sputum production History of present illness: 24-year-old deaf female with history of chronic small bowel obstruction/intestinal dysfunction presents to ED with complaints of cough with yellow sputum production for the past 3 days. She cough is intermittent but has progressively worsened over the past 3 days. Her cough is associated with thich "sticky" sputum production. Pt states that she checked her temperature at home at it was 102. Additionally pt states, she had one episiode of dark colored emesis. She had an appointment earlier today with Dr. Bowden and was advised to go to ED for further evaluation and treatment. 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 Admits cough, sputum production, and fever, hematemesis 1. Denies hemoptysis, chest pain, dyspnea, headache, or recent sick contacts. Past History Past Medical History: other (Deaf, chronic intestinal dysfunction) Past Surgical History: Other ( colostomy x 2) Social history: lives with family Family history: no significant family history Medications and Allergies Allergies Allergy/AdvReac Type Severity Reaction Status Date / Time No Known Allergies Allergy Verified 02/28/19 14:23 Home Medications Medication Instructions Recorded Confirmed Last Taken Type Bisacodyl [Dulcolax suppos] 10 mg [place] Q72H PRN #10 supp.rect 01/30/19 02/17/19 Unknown Rx Glycerin Adult 2 gm 1 supp [place] QDAY PRN #30 supp.rect 01/30/19 02/17/19 Unknown Rx Ibuprofen 600 mg PO Q6HRT PRN 02/17/19 02/17/19 Unknown History Acetaminophen [Acetaminophen TAB] 650 mg PO Q4H PRN tablet 03/08/19 Unknown Rx Erythromycin Ethylsucc Susp 200 mg PO QID 14 Days #300 03/08/19 Unknown Rx [E.e.s. 200] oral.liqd Ferrous Gluconate [Fergon 325 MG 324 mg PO QDAY #30 tablet 03/08/19 Unknown Rx tab] HYDROcodone/APAP 5-325 [[place] 1 each PO Q6H PRN #20 tablet 03/08/19 Unknown Rx 5-325 mg TAB] Na Biphos/Na Phosp [Fleet] 133 ml [place] QDAY #30 bottle 03/08/19 Unknown Rx Total Parenteral Nutrition [TPN 1 ml IV DAILY@2000 #30 ml 03/08/19 Unknown Rx Adult] Active Meds: Active Medications Acetaminophen (Tylenol) 650 mg PO Q4H PRN PRN Reason: Pain MILD(1-3)/Fever >100.5/GUAMAN Guaifenesin (Robitussin) 200 mg PO Q4H PRN PRN Reason: Cough Sodium Chloride (Nacl 0.9% 1000 Ml) 1,000 mls @ 125 mls/hr IV DIRECT FED[place]ICA Azithromycin 500 mg/ Sodium (Chloride) 250 mls @ 250 mls/hr IV Q24HR [place] Morphine Sulfate (Morphine) 2 mg IV Q4H PRN PRN Reason: Pain, Moderate (4-6) Stop: 03/31/19 23:59 Ondansetron HCl (Zofran) 4 mg IV Q8H PRN PRN Reason: Nausea And Vomiting Sodium Chloride (Sodium Chloride Flush Syringe 10 Ml) 10 ml IV BID FEDERICA Sodium Chloride (Sodium Chloride Flush Syringe 10 Ml) 10 ml IV PRN PRN PRN Reason: LINE FLUSH Review of Systems All systems: negative (reviewed and no additional remarkable complaints except as noted below) Respiratory: cough with sputum (yellow sputum production), hemoptysis Gastrointestinal: coffee ground emesis (one episode of dark brown emesis) Exam - Physical Exam Narrative exam: Physical exam General appearance: Present: No acute distress, awake alert and oriented 3 - EENT Eyes: Present: PERRL, EOM intact ENT: Deaf, normal dentition - Neck Neck: Present: supple, normal ROM - Respiratory Respiratory effort: Non-labored Respiratory: Clear throughout - Cardiovascular Heart rate: 115 (bpm) Rhythm: Sinus tachycardia Heart Sounds: Present: S1 & S2. Absent: rub, click - Extremities Extremities: no ischemia, pulses intact, - Peripheral Assessment Peripheral Pulses: within normal limits - Abdominal General gastrointestinal: soft, distended, rigid, non-tender, active BS 4 - Integumentary Integumentary: Present: warm, dry - Musculoskeletal Musculoskeletal: Able to move all extremities - Psychiatric Psychiatric: Appropriate for situation, cooperative - Constitutional Vitals: Temp Pulse Resp BP Pulse Ox 98.2 F 107 H 30 H 94/64 97 03/29/19 21:19 03/30/19 01:37 03/30/19 01:37 03/30/19 01:37 03/30/19 01:37 Results - Labs CBC & Chem 7: 03/29/19 19:30 03/29/19 19:26 Labs: Laboratory Last Values WBC 3.7 K/mm3 (4.5-11.0) L 03/29/19 19:30 RBC 2.99 M/mm3 (3.65-5.03) L 03/29/19 19:30 Hgb 8.4 gm/dl (10.1-14.3) L 03/29/19 19:30 Hct 25.2 % (30.3-42.9) L 03/29/19 19:30 MCV 84 fl (79-97) 03/29/19 19:30 MCH 28 pg (28-32) 03/29/19 19: MCHC 33 % (30-34) 03/29/19 19:30 RDW 17.5 % (13.2-15.2) H 03/29/19 19:30 Plt Count 49 K/mm3 (140-440) L 03/29/19 19:30 Lymph % (Auto) 15.9 % (13.4-35.0) 03/29/19 19:30 [place] % (Auto) 6.4 % (0.0-7.3) 03/29/19 19:30 Eos % (Auto) 1.0 % (0.0-4.3) 03/29/19 19:30 Baso % (Auto) 1.0 % (0.0-1.8) 03/29/19 19:30 Lymph # 0.6 K/mm3 (1.2-5.4) L 03/29/19 19:30 [place] # 0.2 K/mm3 (0.0-0.8) 03/29/19 19:30 Eos # 0.0 K/mm3 (0.0-0.4) 03/29/19 19:30 Baso # 0.0 K/mm3 (0.0-0.1) 03/29/19 19:30 Add Manual Diff TNR 03/29/19 18:15 Seg Neutrophils % 75.7 % (40.0-70.0) H 03/29/19 19:30 Seg Neutrophils # 2.8 K/mm3 (1.8-7.7) 03/29/19 19:30 Sodium 136 mmol/L (137-145) L 03/29/19 19:26 Potassium 3.8 mmol/L (3.6-5.0) 03/29/19 19:26 Chloride 102.1 mmol/L (98-107) 03/29/19 19:26 Carbon Dioxide 22 mmol/L (22-30) 03/29/19 19:26 16 mmol/L 03/29/19 19:26 BUN 16 mg/dL (7-17) 03/29/19 19:26 0.5 mg/dL (0.7-1.2) L 03/29/19 19:26 Estimated GFR > 60 ml/min 03/29/19 19:26 32 % 03/29/19 19:26 Glucose 119 mg/dL (65-100) H 03/29/19 19:26 Lactic Acid 1.20 mmol/L (0.7-2.0) 03/29/19 18:15 Calcium 8.5 mg/dL (8.4-10.2) 03/29/19 19:26 0.80 mg/dL (0.1-1.2) 03/29/19 19:26 AST 144 units/L (5-40) H 03/29/19 19:26 ALT 159 units/L (7-56) H 03/29/19 19:26 289 units/L (35-129) H 03/29/19 19:26 7.6 g/dL (6.3-8.2) 03/29/19 19:26 3.1 g/dL (3.9-5) L 03/29/19 19:26 0.7 % 03/29/19 19:26 HCG, Qual Negative (Negative) 03/29/19 19:26 Ibeth (Yellow) 03/29/19 22:28 Clear (Clear) 03/29/19 22:28 5.0 (5.0-7.0) 03/29/19 22:28 Ur Specific [place] > 1.059 (1.003-1.030) H 03/29/19 22:28 30 mg/dl mg/dL (Negative) 03/29/19 22:28 Neg mg/dL (Negative) 03/29/19 22:28 Neg mg/dL (Negative) 03/29/19 22:28 Sm (Negative) 03/29/19 22:28 Neg (Negative) 03/29/19 22: Neg (Negative) 03/29/19 22:28 4.0 mg/dL (<2.0) 03/29/19 22:28 Ur Leukocyte Esterase Neg (Negative) 03/29/19 22: 2.0 /HPF (0.0-6.0) 03/29/19 22: 20.0 /HPF (0.0-6.0) 03/29/19 22: U Epithel Cells (Auto) 6.0 /HPF (0-13.0) 03/29/19: 3+ /HPF 03/29/19 22:28 - Imaging and Cardiology Chest x-ray: report reviewed, image reviewed (Elevation of the left hemidiaphragm with associated atelectasis at the left lung base. ) CT scan - abdomen: report reviewed (evere bowel distention to the level of the anus, with bowel loops measuring up to 10.5 cm in caliber, compatible with distal bowel obstruction . There is resultant elevation of the left hemid iaphragm, with mass effect on the left aspect of the mediastinum and heart. ), image reviewed Assessment and Plan Assessment and plan: 24-year-old deaf female with history of chronic small bowel obstruction/intestinal dysfunction presents to ED with complaints of cough with yellow sputum production for the past 3 days. At presentation she is found to be afebrile, tachycardic with heart rate of 11 5 bpm and leukopenic with WBC 3.7. She is also anemic with Hgb 8.4. Patient has right upper arm double-lumen PICC line and receives continuous TPN. There is concern for malnutrition with albumin of 3.1. She'll be admitted to Med/Surg with a mild telemetry monitoring. Dr. Bowden has been consulted. At this time Dr. Bowden does not want NG tube placed for decompression unless patient experiences another episode of hematemesis. Upper respiratory infection SIRS Leukopenia Tachycardic Malnutrition Acute anemia Chronic small bowel obstruction/intestinal dysfunction Plan: Continue supportive care Continuous telemetry monitoring Start IV azithromycin Guaifenesin NPO except for meds Consult dietitian for nutritional assessment and TPN management Monitor CBC Monitor BMP Hemoglobin on admission 8.4 (baseline 10.1) Monitor for s/s active bleeding Dr. Bowden (Gen Surg) following Hold off on pNG tube per Dr. Bowden's recommendations DVT PPX on SCD's hold AC for now Advance Directives: No VTE prophylaxis?: Mechanical Plan of care discussed with patient/family: Yes <MATTAVELINO DESAI - Last Filed: 03/30/19 07:09> History of Present Illness Date of admission: 03/30/19 03:22 Medications and Allergies Active Meds: Active Medications Acetaminophen (Tylenol) 650 mg PO Q4H PRN PRN Reason: Pain MILD(1-3)/Fever >100.5/GUAMAN Guaifenesin (Robitussin) 200 mg PO Q4H PRN PRN Reason: Cough Sodium Chloride (Nacl 0.9% 1000 Ml) 1,000 mls @ 125 mls/hr IV DIRECT [place] Azithromycin 500 mg/ Sodium (Chloride) 250 mls @ 250 mls/hr IV Q24HR [place] Morphine Sulfate (Morphine) 2 mg IV Q4H PRN PRN Reason: Pain, Moderate (4-6) Stop: 03/31/19 23:59 Ondansetron HCl (Zofran) 4 mg IV Q8H PRN PRN Reason: Nausea And Vomiting Sodium Chloride (Sodium Chloride Flush Syringe 10 Ml) 10 ml IV BID [place] Sodium Chloride (Sodium Chloride Flush Syringe 10 Ml) 10 ml IV PRN PRN PRN Reason: LINE FLUSH Exam - Constitutional Vitals: Temp Pulse Resp BP Pulse Ox 98.6 F 108 H 18 108/63 97 03/30/19 04:27 03/30/19 04:27 03/30/19 04:27 03/30/19 04:27 03/30/19 04:27 Results - Labs CBC & Chem 7: 03/29/19 19:30 03/29/19 19:26 Labs: Laboratory Last Values WBC 3.7 K/mm3 (4.5-11.0) L 03/29/19 19:30 RBC 2.99 M/mm3 (3.65-5.03) L 03/29/19 19:30 Hgb 8.4 gm/dl (10.1-14.3) L 03/29/19 19:30 Hct 25.2 % (30.3-42.9) L 03/29/19 19:30 MCV 84 fl (79-97) 03/29/19 19:30 MCH 28 pg (28-32) 03/29/19 19:30 MCHC 33 % (30-34) 03/29/19 19:30 RDW 17.5 % (13.2-15.2) H 03/29/19 19:30 Plt Count 49 K/mm3 (140-440) L 03/29/19 19:30 Lymph % (Auto) 15.9 % (13.4-35.0) 03/29/19 19:30 [place] % (Auto) 6.4 % (0.0-7.3) 03/29/19 19:30 Eos % (Auto) 1.0 % (0.0-4.3) 03/29/19 19:30 Baso % (Auto) 1.0 % (0.0-1.8) 03/29/19 19:30 Lymph # 0.6 K/mm3 (1.2-5.4) L 03/29/19 19:30 [place] # 0.2 K/mm3 (0.0-0.8) 03/29/19 19:30 Eos # 0.0 K/mm3 (0.0-0.4) 03/29/19 19:30 Baso # 0.0 K/mm3 (0.0-0.1) 03/29/19 19:30 Add Manual Diff TNR 03/29/19 18:15 Seg Neutrophils % 75.7 % (40.0-70.0) H 03/29/19 19:30 Seg Neutrophils # 2.8 K/mm3 (1.8-7.7) 03/29/19 19:30 Sodium 136 mmol/L (137-145) L 03/29/19 19:26 Potassium 3.8 mmol/L (3.6-5.0) 03/29/19 19:26 Chloride 102.1 mmol/L (98-107) 03/29/19 19:26 Carbon Dioxide 22 mmol/L (22-30) 03/29/19 19:26 16 mmol/L 03/29/19 19:26 BUN 16 mg/dL (7-17) 03/29/19 19:26 0.5 mg/dL (0.7-1.2) L 03/29/19 19:26 Estimated GFR > 60 ml/min 03/29/19 19:26 32 % 03/29/19 19:26 Glucose 119 mg/dL (65-100) H 03/29/19 19:26 Lactic Acid 1.20 mmol/L (0.7-2.0) 03/29/19 18:15 Calcium 8.5 mg/dL (8.4-10.2) 03/29/19 19:26 0.80 mg/dL (0.1-1.2) 03/29/19 19: AST 144 units/L (5-40) H 03/29/19 19: ALT 159 units/L (7-56) H 03/29/19 19:26 289 units/L (35-129) H 03/29/19 19:26 7.6 g/dL (6.3-8.2) 03/29/19 19:26 3.1 g/dL (3.9-5) L 03/29/19 19:26 0.7 % 03/29/19 19: HCG, Qual Negative (Negative) 03/29/19 19:26 [place] (Yellow) 03/29/19 22:28 Clear (Clear) 03/29/19 22:28 5.0 (5.0-7.0) 03/29/19 22:28 Ur Specific [place] > 1.059 (1.003-1.030) H 03/29/19 22:28 30 mg/dl mg/dL (Negative) 03/29/19 22:28 Neg mg/dL (Negative) 03/29/19 22:28 Neg mg/dL (Negative) 03/29/19 22:28 Sm (Negative) 03/29/19 22:28 Neg (Negative) 03/29/19 22:28 Neg (Negative) 03/29/19 22:28 4.0 mg/dL (<2.0) 03/29/19 22:28 Ur Leukocyte Esterase Neg (Negative) 03/29/19 22:28 2.0 /HPF (0.0-6.0) 03/29/19 22:28 20.0 /HPF (0.0-6.0) 03/29/19 22:28 U Epithel Cells (Auto) 6.0 /HPF (0-13.0) 03/29/19 22:28 3+ /HPF 03/29/19 22:28 Assessment and Plan Assessment and plan: I personally discussed the patient with the [employer] MANAGER-C. I agree with the above assessment and plan
[2019-03-30] MEDS ORDERED: ZITHROMAX 500 MG in NACL 0.9% 250ML 250 ML IV SCH (10:00)
[2019-03-30 11:30] LABS: BUN/Creatinine Ratio 35; Blood Urea Nitrogen 14 mg/dL (7-17); Calcium 8.2 mg/dL (8.4-10.2); Hemolysis Index 13
--- NOTE | 2019-03-30 14:00 | Event Note ---
Date: 03/30/19 Patient admitted earlier this morning, for cough, fever and sputum production. Chest x-ray is negative. Her present on IV Levaquin for bronchitis. Will monitor. General surgery was consulted and the abdominal findings were chronic.
[2019-03-30] MEDS: LEVAQUIN 750MG/150ML 750 MG/150 ML BAG IV SCH (16:30)
[2019-03-30] MEDS ORDERED: TPN ADULT 1,800 ML IV SCH (20:00)
[2019-03-30] MEDS: SODIUM CHLORIDE FLUSH SYRINGE 10 ML IV SCH ×2 (21:02→21:30)
--- NOTE | 2019-03-31 00:32 | Consultation ---
History of Present Illness Consult date: 03/31/19 Reason for consult: other (dilated small bowel) Requesting physician: NATIVIDAD ZIEGLER III Chief complaint: cough and fever - History of present illness History of present illness: 24yo F who is well known to our service presents with new onset of fevers and cough. We are asked to see her for bowel dilatation. Pt denies pain. Has minimal nausea. Has been passing flatus and having BMs. has been losing weight. Abd is more distended compared to last week when she was seen in the office. Past History Past Medical History: other (Deaf, chronic intestinal dysfunction) Past Surgical History: Other ( colostomy x 2; ileostomy reversal; lysis of adhesions. ) Social history: lives with family. denies: smoking, alcohol abuse, prescription drug abuse, IV drug use Family history: no significant family history Medications and Allergies Allergies Allergy/AdvReac Type Severity Reaction Status Date / Time No Known Allergies Allergy Verified 02/28/19 14:23 Home Medications Medication Instructions Recorded Confirmed Last Taken Type Bisacodyl [Dulcolax suppos] 10 mg IA Q72H PRN #10 supp.rect 01/30/19 02/17/19 Unknown Rx Glycerin Adult 2 gm 1 supp IA QDAY PRN #30 supp.rect 01/30/19 02/17/19 Unknown Rx Ibuprofen 600 mg PO Q6HRT PRN 02/17/19 02/17/19 Unknown History Acetaminophen [Acetaminophen TAB] 650 mg PO Q4H PRN tablet 03/08/19 Unknown Rx Erythromycin Ethylsucc Susp 200 mg PO QID 14 Days #300 03/08/19 Unknown Rx [E.e.s. 200] oral.liqd Ferrous Gluconate [Fergon 325 MG 324 mg PO QDAY #30 tablet 03/08/19 Unknown Rx tab] HYDROcodone/APAP 5-325 [[place] 1 each PO Q6H PRN #20 tablet 03/08/19 Unknown Rx 5-325 mg TAB] Na Biphos/Na Phosp [Fleet] 133 ml IA QDAY #30 bottle 03/08/19 Unknown Rx Total Parenteral Nutrition [TPN 1 ml IV DAILY@1999 #30 ml 03/08/19 Unknown Rx Adult] Active Meds: Active Medications Acetaminophen (Tylenol) 650 mg PO Q4H PRN PRN Reason: Pain MILD(1-3)/Fever >100.5/GUAMAN Guaifenesin (Robitussin) 200 mg PO Q4H PRN PRN Reason: Cough Azithromycin 500 mg/ Sodium (Chloride) 250 mls @ 250 mls/hr IV Q24HR [facility] Last Admin: 03/30/19 10:31 Dose: 250 mls/hr Documented by: Levofloxacin/Dextrose (Levaquin 750mg/150ml) 750 mg in 150 mls @ 100 mls/hr IV Q24H [facility]; Protocol Last Admin: 03/30/19 16:30 Dose: 100 mls/hr Documented by: Amino Acids/Electrolytes/Dextrose (Tpn Adult) 1,800 mls @ 75 mls/hr IV DAILY@1999 [facility]; Protocol Stop: 03/31/19 19:59 Last Admin: 03/30/19 21:12 Dose: 75 mls/hr Documented by: Morphine Sulfate (Morphine) 2 mg IV Q4H PRN PRN Reason: Pain, Moderate (4-6) Stop: 03/31/19 23:59 Ondansetron HCl (Zofran) 4 mg IV Q8H PRN PRN Reason: Nausea And Vomiting Sodium Chloride (Sodium Chloride Flush Syringe 10 Ml) 10 ml IV BID [facility] Last Admin: 03/30/19 21:30 Dose: 10 ml Documented by: Sodium Chloride (Sodium Chloride Flush Syringe 10 Ml) 10 ml IV PRN PRN PRN Reason: LINE FLUSH Last Admin: 03/30/19 21:29 Dose: 10 ml Documented by: Review of Systems - Constitutional weight loss, fever, chills, weakness, no chronic pain - Cardiovascular no chest pain - Respiratory cough, cough with sputum, dyspnea on exertion - Gastrointestinal nausea (mild), dyspepsia/bloating, no abdominal pain, no vomiting, no change in bowel habits - Genitourinary Genitourinary: no dysuria - Muskuloskeletal no low back pain - Neurological hearing difficulties (since ) Exam Vital Signs Temp Pulse Resp BP Pulse Ox 98 F 135 H 18 111/68 100 03/29/19 15:17 03/29/19 15:17 03/29/19 15:17 03/29/19 15:17 03/29/19 15:17 - General physical appearance Positive: no distress, no pain, other (looks better compared to when she presented to the office yesterday) - Eyes Positive: normal occular movement - Respiratory Positive: normal expansion, normal respiratory effort - Abdomen Abdomen: Present: soft, bowel sounds hypoactive, distended, surgical scars (well healed). Absent: tender, guarding, rigid, wound - Integumentary no rash, no growths, no abnormal pigmentation - Neurologic Neurologic: alert and oriented to time, place and person - Psychiatric Psychiatric: appropriate mood/affect, intact judgment & insight Results - Labs 03/29/19 19:30 03/30/19 09:25 Abnormal lab results 03/30/19 03/30/19 Range/Units 09:25 09:25 Carbon Dioxide 21 L (22-30) mmol/L Creatinine 0.4 L (0.7-1.2) mg/dL Glucose 117 H (65-100) mg/dL Calcium 8.2 L (8.4-10.2) mg/dL Phosphorus 1.90 L (2.5-4.5) mg/dL Diabetes panel 03/30/19 Range/Units 09:25 Sodium 137 (137-145) mmol/L Potassium 4.1 (3.6-5.0) mmol/L Chloride 104.2 (98-107) mmol/L Carbon Dioxide 21 L (22-30) mmol/L BUN 14 (7-17) mg/dL Creatinine 0.4 L (0.7-1.2) mg/dL Glucose 117 H (65-100) mg/dL Calcium 8.2 L (8.4-10.2) mg/dL Calcium panel 03/30/19 03/30/19 Range/Units 09:25 09:25 Calcium 8.2 L (8.4-10.2) mg/dL Phosphorus 1.90 L (2.5-4.5) mg/dL Pituitary panel 03/30/19 Range/Units 09:25 Sodium 137 (137-145) mmol/L Potassium 4.1 (3.6-5.0) mmol/L Chloride 104.2 (98-107) mmol/L Carbon Dioxide 21 L (22-30) mmol/L BUN 14 (7-17) mg/dL Creatinine 0.4 L (0.7-1.2) mg/dL Glucose 117 H (65-100) mg/dL Calcium 8.2 L (8.4-10.2) mg/dL Adrenal panel 03/30/19 Range/Units 09:25 Sodium 137 (137-145) mmol/L Potassium 4.1 (3.6-5.0) mmol/L Chloride 104.2 (98-107) mmol/L Carbon Dioxide 21 L (22-30) mmol/L BUN 14 (7-17) mg/dL Creatinine 0.4 L (0.7-1.2) mg/dL Glucose 117 H (65-100) mg/dL Calcium 8.2 L (8.4-10.2) mg/dL - Imaging CT scan - abdomen: report reviewed, image reviewed CT scan - pelvis: report reviewed, image reviewed Assessment and Plan - Patient Problems (1) Dilated bowel Current Visit: Yes Status: Acute Plan to address problem: Pt stable. This is a chronic problem for her. No urgent intervention is needed at this time. She is not obstructed. She may have a diet as tolerated. Will restart her home bowel regimen and see if we can trial IV erythromycin. PO form is not available here. we have been trying to get records from [place] in order to see what sort of work-up has been done to determine the cause of her intestinal dysfunction. The plan is to refer her to an intestinal specialist as an out-pt. Until we are able to get her bowels working properly, we have had her on TPN. While on TPN, she has been losing weight per mom. Will ask nutrition to increase the calories in the formulation. Will ask PICC team to replace PICC line. One line is occluded. Discussed with mom that we may have to consider taking Aleida back to surgery to place a G-J tube for feeding and decompression as well as recreate the ostomy to help with decompression. This would allow for better nutrition as well as decompression of bowel. It would also help stabilize her weight while she is worked up down here for this intestinal problem. Mom will talk to Aleida. As she was just in surgery about 1 month ago, we should wait about 1-2 months to allow the adhesions to soften. This will decrease the risk of bowel injuries from adhesions. Will be available as needed. Please call with questions. Time=40min
[2019-03-31] MEDS: SENOKOT PO SCH ×3 (03:23→22:26)
[2019-03-31 05:27] LABS: Basophils % (Auto) 0.4 % (0.0-1.8); Eosinophils # (Auto) 0.1 K/mm3 (0.0-0.4); Eosinophils % (Auto) 1.5 % (0.0-4.3); Hematocrit 24.8 % (30.3-42.9); Hemoglobin 8.1 gm/dl (10.1-14.3); Lymphocytes # (Auto) 0.5 K/mm3 (1.2-5.4); Lymphocytes % (Auto) 14.1 % (13.4-35.0); Mean Corpuscular HGB Conc 33 % (30-34); Mean Corpuscular Volume 85 fl (79-97); Monocytes # (Auto) 0.2 K/mm3 (0.0-0.8); Monocytes % (Auto) 5.7 % (0.0-7.3); Platelet Count 127 K/mm3 (140-440); Red Blood Count 2.92 M/mm3 (3.65-5.03); Red Cell Distribution Width 17.6 % (13.2-15.2)
[2019-03-31 05:46] LABS: BUN/Creatinine Ratio 35; Blood Urea Nitrogen 14 mg/dL (7-17); Calcium 8.6 mg/dL (8.4-10.2); Hemolysis Index 6
[2019-03-31] MEDS: TYLENOL PO PRN ×2 (07:10→17:39)
[2019-03-31] MEDS: FLEET PR SCH (09:21)
[2019-03-31] MEDS ORDERED: DIFLUCAN 200 ML IV ONE (10:00)
[2019-03-31] MEDS ORDERED: DIFLUCAN PO ONE (10:00)
[2019-03-31] MEDS: SODIUM CHLORIDE FLUSH SYRINGE 10 ML IV SCH ×2 (12:03→22:31)
--- NOTE | 2019-03-31 13:45 | Progress Note ---
Assessment and Plan Assessment and plan: 24-year-old deaf female with history of chronic small bowel obstruction/intestinal dysfunction presents to ED with complaints of cough with yellow sputum production for the past 3 days and fever. The cough is intermittent but has progressively worsened over the past 3 days. Patient was seen by General surgery and her abdominal condition was chronic and no intervention needed at this time. SIRS, candidemia - Patient is on Levaquin and IV fluconazole - Blood cultures this morning was positive for Astrid - ID was consulted Chronic abdominal dysfunction - Patient had been in the hospital for long time and had laparotomy - No cause was identified - Surgery is following - Patient is on TPN and started on clear liquid diet DVT prophylaxis Disposition; continue inpatient care, follow with ID for recommendations. History Interval history: Patient was seen and evaluated this morning, patient had fever overnight. Hospitalist Physical - Physical exam Narrative exam: Not in cardiopulmonary distress. The patient appeared well nourished and normally developed. Vital signs as documented. Head exam is unremarkable. No scleral icterus . Neck is without jugular venous distension, thyromegaly, or carotid bruits. Lungs are clear to auscultation. Cardiac exam reveals regular rate and Rhythm. Abdominal exam reveals normal bowel sounds. Extremities are non-edematous. [employer]: Alert and oriented 3. No focal weakness. - Constitutional Vitals: Temp Pulse Resp BP Pulse Ox 98.4 F 100 H 19 109/64 93 03/31/19 12:30 03/31/19 12:29 03/31/19 12:30 03/31/19 12:30 03/31/19 12:29 Results - Labs CBC & Chem 7: 03/31/19 04:43 03/31/19 04:43 Labs: Laboratory Last Values WBC 3.8 K/mm3 (4.5-11.0) L 03/31/19 04:43 RBC 2.92 M/mm3 (3.65-5.03) L 03/31/19 04:43 Hgb 8.1 gm/dl (10.1-14.3) L 03/31/19 04:43 Hct 24.8 % (30.3-42.9) L 03/31/19 04:43 MCV 85 fl (79-97) 03/31/19 04:43 MCH 28 pg (28-32) 03/31/19 04:43 MCHC 33 % (30-34) 03/31/19 04:43 RDW 17.6 % (13.2-15.2) H 03/31/19 04:43 Plt Count 127 K/mm3 (140-440) L D 03/31/19 04:43 Lymph % (Auto) 14.1 % (13.4-35.0) 03/31/19 04:43 [place] % (Auto) 5.7 % (0.0-7.3) 03/31/19 04:43 Eos % (Auto) 1.5 % (0.0-4.3) 03/31/19 04:43 Baso % (Auto) 0.4 % (0.0-1.8) 03/31/19 04:43 Lymph # 0.5 K/mm3 (1.2-5.4) L 03/31/19 04:43 [place] # 0.2 K/mm3 (0.0-0.8) 03/31/19 04:43 Eos # 0.1 K/mm3 (0.0-0.4) 03/31/19 04:43 Baso # 0.0 K/mm3 (0.0-0.1) 03/31/19 04:43 Add Manual Diff TNR 03/29/19 18:15 Seg Neutrophils % 78.3 % (40.0-70.0) H 03/31/19 04:43 Seg Neutrophils # 3.0 K/mm3 (1.8-7.7) 03/31/19 04:43 Sodium 135 mmol/L (137-145) L 03/31/19 04:43 Potassium 4.0 mmol/L (3.6-5.0) 03/31/19 04:43 Chloride 100.2 mmol/L (98-107) 03/31/19 04:43 Carbon Dioxide 22 mmol/L (22-30) 03/31/19 04:43 17 mmol/L 03/31/19 04:43 BUN 14 mg/dL (7-17) 03/31/19 04:43 0.4 mg/dL (0.7-1.2) L 03/31/19 04:43 Estimated GFR > 60 ml/min 03/31/19 04:43 35 % 03/31/19 04:43 Glucose 114 mg/dL (65-100) H 03/31/19 04:43 Lactic Acid 1.20 mmol/L (0.7-2.0) 03/29/19 18:15 Calcium 8.6 mg/dL (8.4-10.2) 03/31/19 04:43 Phosphorus 3.60 mg/dL (2.5-4.5) D 03/31/19 04:43 Magnesium 1.80 mg/dL (1.7-2.3) 03/31/19 04:43 0.80 mg/dL (0.1-1.2) 03/29/19 19:26 AST 144 units/L (5-40) H 03/29/19 19:26 ALT 159 units/L (7-56) H 03/29/19 19:26 289 units/L (35-129) H 03/29/19 19:26 7.6 g/dL (6.3-8.2) 03/29/19 19:26 3.1 g/dL (3.9-5) L 03/29/19 19:26 0.7 % 03/29/19 19:26 HCG, Qual Negative (Negative) 03/29/19 19:26 Ibeth (Yellow) 03/29/19 22:28 Clear (Clear) 03/29/19 22:28 5.0 (5.0-7.0) 03/29/19 22:28 Ur Specific [place] > 1.059 (1.003-1.030) H 03/29/19 22:28 30 mg/dl mg/dL (Negative) 03/29/19 22:28 Neg mg/dL (Negative) 03/29/19 22:28 Neg mg/dL (Negative) 03/29/19 22:28 Sm (Negative) 03/29/19 22:28 Neg (Negative) 03/29/19 22:28 Neg (Negative) 03/29/19 22:28 4.0 mg/dL (<2.0) 03/29/19 22:28 Ur Leukocyte Esterase Neg (Negative) 03/29/19 22:28 2.0 /HPF (0.0-6.0) 03/29/19 22:28 20.0 /HPF (0.0-6.0) 03/29/19 22:28 U Epithel Cells (Auto) 6.0 /HPF (0-13.0) 03/29/19 22:28 3+ /HPF 03/29/19 22:28 Active Medications - Current Medications Current Medications: Generic Name Dose Route Start Last Admin Trade Name Freq PRN Reason Stop Dose Admin Acetaminophen 650 mg 03/30/19 00:56 03/31/19 07:10 Tylenol PO 650 mg Q4H PRN Administration Pain MILD(1-3)/Fever >100.5/GUAMAN Guaifenesin 200 mg 03/30/19 01:05 Robitussin PO Q4H PRN Cough Levofloxacin/Dextrose 750 mg in 150 mls @ 100 mls/hr 03/30/19 16:00 03/30/19 16:30 Levaquin 750mg/150ml IV 04/03/19 17:29 100 mls/hr Q24H [facility] Administration Protocol Amino Acids/Electrolytes/Dextrose 1,800 mls @ 75 mls/hr 03/30/19 20:00 03/30/19 21:12 Tpn Adult IV 03/31/19 19:59 75 mls/hr DAILY@1999 [facility] Administration Protocol Fluconazole 200 mg in 100 mls @ 100 mls/hr 04/01/19 10:00 Diflucan IV Q24HR [facility] Amino Acids/Electrolytes/Dextrose 1,800 mls @ 75 mls/hr 03/31/19 20:00 Tpn Adult IV 04/01/19 19:59 DAILY@1999 [facility] Protocol Morphine Sulfate 2 mg 03/30/19 00:56 Morphine IV 03/31/19 23:59 Q4H PRN Pain, Moderate (4-6) Ondansetron HCl 4 mg 03/30/19 00:56 Zofran IV Q8H PRN Nausea And Vomiting Senna 17.2 mg 03/31/19 01:00 03/31/19 11:39 Senokot PO 17.2 mg Q12HR [facility] Administration Sodium Biphosphate/Sodium Phosphate 133 ml 03/31/19 10:00 03/31/19 09:21 Fleet CA 133 ml QDAY [facility] Administration Sodium Chloride 10 ml 03/30/19 10:00 03/31/19 12:03 Sodium Chloride Flush Syringe 10 Ml IV 10 ml BID [facility] Administration Sodium Chloride 10 ml 03/30/19 00:56 03/30/19 21:29 Sodium Chloride Flush Syringe 10 Ml IV 10 ml PRN PRN Administration LINE FLUSH Nutrition/Malnutrition Assess - Dietary Evaluation Nutrition/Malnutrition Findings: Nutrition Notes Start: 03/30/19 10:52 Freq: Status: Active Protocol: Document 03/31/19 09:40 LP (Rec: 03/31/19 09:43 LP [id number]) Nutrition Notes Initial or Follow up Reassessment Other Pertinent Diagnosis Upper resp infection, chronic SBO/intestinal dysfunction Current Diet Full Liquid Labs/Tests Reviewed Pertinent Medications Reviewed Height 5 ft 3 in Weight 45.8 kg Gem Body Weight (kg) 52.27 BMI 17.9 Subjective/Other Information CPN infusing. Noted new PICC to be placed due to only one line working. Percent of energy/protein needs met: 67%/100% Burn Absent Trauma Absent #1 Nutrition Diagnosis Altered GI function Diagnosis Progress(for reassessment Continues documentation) Is patient on ventilator? No Is Patient Ambulatory and/or Out of Bed No REE-([facility]-confined to bed) 1408.404 Kcal/Kg value to use for calculation 40 Approximate Energy Requirements Using 1832 kcal/Kg Calculation Used for Recommendations Kcal/kg Additional Notes Pro needs 1.2-1.5g/k-69g/ day Fluid needs 1ml/kcal Nutrition Intervention Change Diet Order: CPN Nutrition Support: CPN at 75ml/hr: 11.1% Dextrose , 3.9% amino acid, 135mEq Na, 31mmol phos, MVI, Thiamine Kcal 960 Protein (gm) 70 Carbohydrates (gm) 200 Fat (gm) 0 Fluid (mL) 1,800 Fiber (gm) 0 Goal #1 CPN to meet nutrient needs as best possible Goal #2 Wt maintenance and/or gain Anticipated Discharge Needs: Continue CPN; PO diet as tolerated Follow-Up By: 04/01/19 Additional Comments Labs in AM: BMP, Mg, Phos
[2019-03-31] MEDS: LEVAQUIN 750MG/150ML 750 MG/150 ML BAG IV SCH (15:06)
--- NOTE | 2019-03-31 16:46 | Consultation ---
History of Present Illness - Reason for Consult Consult date: 03/31/19 Candidemia Requesting physician: ANNA CORTEZ - History of Present Illness The patient is a 24-year-old female with history of deafness, chronic small bowel obstruction due to underlying intestinal dysfunction of unclear etiology, recent hospitalization for small bowel obstruction requiring exploratory laparotomy on 02/28/2019 was admitted to the hospital on 03/29/2019 with concerns for pneumonia when she was being evaluated at her Gen. surgery appointment. She is on TPN (at least since her last hospitalization). Here, due to concern for sepsis, she was started on empiric antibiotics. Blood cultures on admission grew sophia as well as gram-positive cocci, hence infectious diseases was consulted. Earlier today, patient spiked a fever of 101.1F. Due to her deafness, history is limited. She does not appear to be in any distress, denies any pain. Review of Systems: History and ROS obtained by chart review. Limited due to patient's deafness. Previous chart reviewed. Past History Past Medical History: other (Deaf, chronic intestinal dysfunction) Past Surgical History: Other ( colostomy x 2; ileostomy reversal; lysis of adhesions. ) Social history: lives with family. denies: smoking, alcohol abuse, prescription drug abuse, IV drug use Family history: no significant family history Medications and Allergies Allergies Allergy/AdvReac Type Severity Reaction Status Date / Time No Known Allergies Allergy Verified 02/28/19 14:23 Home Medications Medication Instructions Recorded Confirmed Last Taken Type Bisacodyl [Dulcolax suppos] 10 mg WI Q72H PRN #10 supp.rect 01/30/19 03/31/19 Unknown Rx Glycerin Adult 2 gm 1 supp WI QDAY PRN #30 supp.rect 01/30/19 03/31/19 Unknown Rx Ibuprofen 600 mg PO Q6HRT PRN 02/17/19 03/31/19 Unknown History Acetaminophen [Acetaminophen TAB] 650 mg PO Q4H PRN tablet 03/08/19 03/31/19 Unknown Rx Erythromycin Ethylsucc Susp 200 mg PO QID 14 Days #300 03/08/19 03/31/19 Unknown Rx [E.e.s. 200] oral.liqd Ferrous Gluconate [Fergon 325 MG 324 mg PO QDAY #30 tablet 03/08/19 03/31/19 Unknown Rx tab] HYDROcodone/APAP 5-325 [[place] 1 each PO Q6H PRN #20 tablet 03/08/19 03/31/19 Unknown Rx 5-325 mg TAB] Na Biphos/Na Phosp [Fleet] 133 ml WI QDAY #30 bottle 03/08/19 03/31/19 Unknown Rx Total Parenteral Nutrition [TPN 1 ml IV DAILY@1999 #30 ml 03/08/19 03/31/19 Unknown Rx Adult] Active Meds: Active Medications Acetaminophen (Tylenol) 650 mg PO Q4H PRN PRN Reason: Pain MILD(1-3)/Fever >100.5/GUAMAN Last Admin: 03/31/19 07:10 Dose: 650 mg Documented by: Guaifenesin (Robitussin) 200 mg PO Q4H PRN PRN Reason: Cough Levofloxacin/Dextrose (Levaquin 750mg/150ml) 750 mg in 150 mls @ 100 mls/hr IV Q24H [facility]; Protocol Stop: 04/03/19 17:29 Last Admin: 03/31/19 15:06 Dose: 100 mls/hr Documented by: Amino Acids/Electrolytes/Dextrose (Tpn Adult) 1,800 mls @ 75 mls/hr IV DAILY@1999 [facility]; Protocol Stop: 03/31/19 19:59 Last Admin: 03/30/19 21:12 Dose: 75 mls/hr Documented by: Fluconazole (Diflucan) 200 mg in 100 mls @ 100 mls/hr IV Q24HR [facility] Amino Acids/Electrolytes/Dextrose (Tpn Adult) 1,800 mls @ 75 mls/hr IV DAILY@1999 [facility]; Protocol Stop: 04/01/19 19:59 Morphine Sulfate (Morphine) 2 mg IV Q4H PRN PRN Reason: Pain, Moderate (4-6) Stop: 03/31/19 23:59 Ondansetron HCl (Zofran) 4 mg IV Q8H PRN PRN Reason: Nausea And Vomiting Senna (Senokot) 17.2 mg PO Q12HR [facility] Last Admin: 03/31/19 11:39 Dose: 17.2 mg Documented by: Sodium Biphosphate/Sodium Phosphate (Fleet) 133 ml WI QDAY [facility] Last Admin: 03/31/19 09:21 Dose: 133 ml Documented by: Sodium Chloride (Sodium Chloride Flush Syringe 10 Ml) 10 ml IV BID [facility] Last Admin: 03/31/19 12:03 Dose: 10 ml Documented by: Sodium Chloride (Sodium Chloride Flush Syringe 10 Ml) 10 ml IV PRN PRN PRN Reason: LINE FLUSH Last Admin: 03/30/19 21:29 Dose: 10 ml Documented by: Physical Examination - Physical Exam Narrative exam: Physical Exam: Constitutional: Alert, cooperative. No acute distress. Head, Ears, Nose: Normocephalic, atraumatic. External ears, nose normal. Deafness Eyes: Conjunctivae/corneas clear. No icterus. No ptosis. Neck: Supple, no meningeal signs Oral: no thrush Cardiovascular: S1, S2 normal. Respiratory: Good air entry, clear to auscultation bilaterally GI: distended, non-tender; midline surgical incision intact, bowel sounds +. No peritoneal signs Musculoskeletal: No pedal edema, no cyanosis. Right arm PICC line + Skin: No rash or abscess Hem/Lymphatic: No palpable cervical or supraclavicular nodes. No lymphangitis Psych: no agitation Neurological: Awake, alert. - Constitutional Vitals: Vital Signs Temp Pulse Resp BP Pulse Ox 98.4 F 100 H 19 109/64 93 03/31/19 12:30 03/31/19 12:29 03/31/19 12:30 03/31/19 12:30 03/31/19 12:29 Temperature -Last 24 Hours Temperature 98.4 F Temperature 101.1 F Temperature 98.0 F Temperature 98.0 F Results - Labs CBC & Chem 7: 03/31/19 04:43 03/31/19 04:43 Labs: Abnormal lab results 03/31/19 03/31/19 Range/Units 04:43 04:43 WBC 3.8 L (4.5-11.0) K/mm3 RBC 2.92 L (3.65-5.03) M/mm3 Hgb 8.1 L (10.1-14.3) gm/dl Hct 24.8 L (30.3-42.9) % RDW 17.6 H (13.2-15.2) % Plt Count 127 L D (140-440) K/mm3 Lymph # 0.5 L (1.2-5.4) K/mm3 Seg Neutrophils % 78.3 H (40.0-70.0) % Sodium 135 L (137-145) mmol/L Creatinine 0.4 L (0.7-1.2) mg/dL Glucose 114 H (65-100) mg/dL - Imaging and Cardiology Chest x-ray: report reviewed, image reviewed (no pneumonia. gaseous bowel distension) Assessment and Plan Cultures: 03/29/2019 blood culture: He is taking both sets, GPC in one set 03/29/2019 urine culture: Sophia albicans A/P: 24-year-old female with history of chronic small bowel obstruction due to underlying intestinal dysfunction of unclear etiology, recent hospitalization for small bowel obstruction requiring exploratory laparotomy on 02/28/2019, deafness, on TPN, now admitted with: 1) Sepsis, secondary to candidemia, bacteremia, likely source is PICC line infection: Especially in the setting of TPN. Patient is hemodynamically stable, but will need the PICC line removed. She is a difficult IV access, discussed with RN. For now, treat empirically with IV Micafungin and Vancomycin. Repeat blood cultures to ensure clearance. Check TTE. 2) Candiduria: no urinary complaints. No pyuria. No treatment indicated. 3) Elevated LFTs: Could be from sepsis. Monitor trend. 4) Leukopenia, thrombocytopenia: Possibly from sepsis, monitor. 5) Chronic intestinal dysfunction: has been on TPN. Recs: PICC line removal (order placed and d/w RN, however patient is difficult stick, may need assistance of IV team) Treat with IV micafungin, IV vancomycin. d/obed fluconazole and levofloxacin Repeat blood cultures to ensure clearance Transthoracic echocardiogram ordered d/w Dr. Cortez. MD Jamilah Alvarez [facility] C: [phone] O: [phone] F: [phone]
[2019-03-31] MEDS ORDERED: VANCOMYCIN 750 MG in NACL 0.9% 500 ML 500 ML IV ONE (16:47)
[2019-03-31] MEDS ORDERED: VANCOMYCIN PHARMACY TO DOSE IV SCH (17:00)
[2019-03-31] MEDS: MYCAMINE 100 MG in NACL 0.9% 100 ML IV SCH (17:41)
[2019-03-31] MEDS ORDERED: VANCOMYCIN/NS 1 GM/250 ML 1 GM/250 ML BAG IV ONE (18:00)
[2019-03-31] MEDS ORDERED: TPN ADULT 1,800 ML IV SCH (20:00)
[2019-03-31] MEDS ORDERED: BENADRYL IV PRN (22:34)
[2019-04-01] MEDS: VANCOMYCIN 750 MG in NACL 0.9% 250ML 250 ML IV SCH ×2 (05:00→18:20)
[2019-04-01 06:21] LABS: Alanine Aminotransferase 56 units/L (7-56); Albumin 1.5 g/dL (3.9-5); BUN/Creatinine Ratio 9; Blood Urea Nitrogen 7 mg/dL (7-17); Hemolysis Index 1
[2019-04-01 06:34] LABS: Calcium TNR mg/dL (8.4-10.2)
[2019-04-01 06:35] LABS: Bilirubin,Direct TNR mg/dL (0-0.2)
[2019-04-01 07:57] LABS: BUN/Creatinine Ratio 25; Blood Urea Nitrogen 10 mg/dL (7-17); Calcium 8.2 mg/dL (8.4-10.2); Hemolysis Index 5
[2019-04-01] MEDS ORDERED: DIFLUCAN 200 MG/100 ML BAG IV SCH (10:00)
[2019-04-01] MEDS: SENOKOT PO SCH ×2 (10:42→22:22)
[2019-04-01] MEDS: FLEET PR SCH (10:45)
[2019-04-01] MEDS: MYCAMINE 100 MG in NACL 0.9% 100 ML IV SCH (10:53)
--- NOTE | 2019-04-01 11:43 | Progress Note ---
Assessment and Plan Cultures: 03/29/2019 blood culture: Yeast and GPC in both sets 03/29/2019 urine culture: Astrid albicans 03/31/2019 blood and fungal blood culture: in process A/P: 24-year-old female with history of chronic small bowel obstruction due to underlying intestinal dysfunction of unclear etiology, recent hospitalization for small bowel obstruction requiring exploratory laparotomy on 02/28/2019, deafness, on TPN, now admitted with: 1) Sepsis, secondary to candidemia, GPC bacteremia, likely source is PICC line infection: Especially in the setting of TPN. Patient is hemodynamically stable, but needs the PICC line removed. Continue empiric treatment with IV Micafungin and Vancomycin. f/u Repeat blood cultures to ensure clearance. TTE report reviewed, unremarkable. 2) Candiduria: no urinary complaints. No pyuria. No treatment indicated. 3) Elevated LFTs: Could be from sepsis. Trend improving. Hep panel pending. 4) Leukopenia, thrombocytopenia: Possibly from sepsis, monitor. 5) Chronic intestinal dysfunction: has been on TPN. Recs: reasonable to hold TPN if needed, however, PICC line needs to be removed. d/w RN again today, it seems patient may need a midline for IV access, since patient is difficult stick, that would be OK for now, eventually that midline will need to be removed as well continue with IV micafungin, IV vancomycin, target vanc trough: 10-20 mcg/ml for now till ID and susceptibility available f/u repeat blood cultures to ensure clearance Dr. Ruddy castillo tomorrow Ivanna West MD [facility] C: [phone] O: [phone] F: [phone] Subjective Date of service: 04/01/19 Interval history: Fever of 102F yesterday. PICC is still present. Both sets now also growing GPCs. Denies any pain. Objective - Exam Narrative Exam: Physical Exam: Constitutional: Alert, cooperative. Head, Ears, Nose: Normocephalic, atraumatic. External ears, nose normal. Deafness + Eyes: Conjunctivae/corneas clear. No icterus. No ptosis. Neck: Supple, no meningeal signs Oral: no thrush Cardiovascular: S1, S2 normal. Respiratory: Good air entry, clear to auscultation bilaterally GI: distended but feels soft compared to yesterday, non-tender; midline surgical incision intact, bowel sounds +. No peritoneal signs Musculoskeletal: No pedal edema, no cyanosis. Right arm PICC line + Skin: No rash or abscess Hem/Lymphatic: No palpable cervical or supraclavicular nodes. No lymphangitis Psych: no agitation Neurological: Awake, alert. - Constitutional Vitals: Vital Signs Temp Pulse Resp BP Pulse Ox 98.5 F 94 H 20 99/57 96 04/01/19 04:36 04/01/19 04:36 04/01/19 04:36 04/01/19 04:36 04/01/19 04:36 Temperature -Last 24 Hours Temperature 98.5 F Temperature 99.4 F Temperature 99.7 F Temperature 102.0 F Temperature 98.4 F - Labs CBC & Chem 7: 03/31/19 04:43 04/01/19 06:49 Labs: Abnormal lab results 04/01/19 04/01/19 Range/Units 05:30 06:49 Sodium 136 L (137-145) mmol/L Potassium 3.5 L (3.6-5.0) mmol/L Chloride 70.9 L (98-107) mmol/L Carbon Dioxide 19 L (22-30) mmol/L Creatinine 0.4 L (0.7-1.2) mg/dL Glucose 121 H (65-100) mg/dL Calcium 8.2 L (8.4-10.2) mg/dL Magnesium 3.20 H (1.7-2.3) mg/dL Alkaline Phosphatase 150 H (35-129) units/L Albumin 1.5 L (3.9-5) g/dL
[2019-04-01 12:04] LABS: Hepatitis C Virus Antibody Non-Reactive (NonReactive)
[2019-04-01 12:30] LABS: Hepatitis B Surface Antigen Non-Reactive (Negative)
[2019-04-01] MEDS ORDERED: DULCOLAX PR PRN (13:01)
[2019-04-01] MEDS ORDERED: IBUPROFEN PO PRN (13:01)
[2019-04-01] MEDS ORDERED: GLYCERIN ADULT 2 GM PR PRN (13:01)
[2019-04-01] MEDS ORDERED: TYLENOL PO PRN (13:01)
[2019-04-01] MEDS ORDERED: NORCO 5/325 PO PRN (13:01)
--- NOTE | 2019-04-01 13:06 | Progress Note ---
Assessment and Plan Assessment and plan: 24-year-old deaf female with history of chronic small bowel obstruction/intestinal dysfunction presents to ED with complaints of cough with yellow sputum production for the past 3 days and fever. The cough is intermittent but has progressively worsened over the past 3 days. Patient was seen by General surgery and her abdominal condition was chronic and no intervention needed at this time. 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 Chronic abdominal dysfunction/intestinal dysmotility - no acute obstruction - Surgery is following - Patient is on TPN and started on clear liquid diet as tolerated hypokalemia replaced Severe malnutrition continue parenteral nutrition DVT prophylaxis; lovenox History Interval history: Review of systems Constitutional: No fevers, no malaise, no joint pains CVS: No chest pain, no orthopnea, no pedal edema GI: Continues to have chronic abdominal pain and distention, no diarrhea, no vomiting, no constipation Respiratory: No shortness of breath, no wheezing, no coughing Hospitalist Physical - Physical exam Narrative exam: General.: Appears well, no distress, nontoxic HEENT: Moist mucous membranes, extraocular muscles intact, no lymphadenopathy Neck: supple Cardiac: S1-S2 heard Lungs: clear to auscultation bilaterally Abdomen: soft , generalized tenderness, mildly distended,, bowel sounds positive Extremities: no edema clubbing or cyanosis Skin: no rash or lesions Neurologic: no gross focal deficits, from Psych: calm, and cooperative - Constitutional Vitals: Temp Pulse Resp BP Pulse Ox 98.5 F 94 H 20 99/57 96 04/01/19 04:36 04/01/19 04:36 04/01/19 04:36 04/01/19 04:36 04/01/19 04:36 Results - Labs CBC & Chem 7: 03/31/19 04:43 04/04/19 06:44 Labs: Laboratory Last Values WBC 3.8 K/mm3 (4.5-11.0) L 03/31/19 04:43 RBC 2.92 M/mm3 (3.65-5.03) L 03/31/19 04:43 Hgb 8.1 gm/dl (10.1-14.3) L 03/31/19 04:43 Hct 24.8 % (30.3-42.9) L 03/31/19 04:43 MCV 85 fl (79-97) 03/31/19 04:43 MCH 28 pg (28-32) 03/31/19 04:43 MCHC 33 % (30-34) 03/31/19 04:43 RDW 17.6 % (13.2-15.2) H 03/31/19 04:43 Plt Count 127 K/mm3 (140-440) L D 03/31/19 04:43 Lymph % (Auto) 14.1 % (13.4-35.0) 03/31/19 04:43 [place] % (Auto) 5.7 % (0.0-7.3) 03/31/19 04:43 Eos % (Auto) 1.5 % (0.0-4.3) 03/31/19 04:43 Baso % (Auto) 0.4 % (0.0-1.8) 03/31/19 04:43 Lymph # 0.5 K/mm3 (1.2-5.4) L 03/31/19 04:43 [place] # 0.2 K/mm3 (0.0-0.8) 03/31/19 04:43 Eos # 0.1 K/mm3 (0.0-0.4) 03/31/19 04:43 Baso # 0.0 K/mm3 (0.0-0.1) 03/31/19 04:43 Add Manual Diff TNR 03/29/19 18:15 Seg Neutrophils % 78.3 % (40.0-70.0) H 03/31/19 04:43 Seg Neutrophils # 3.0 K/mm3 (1.8-7.7) 03/31/19 04:43 Sodium 136 mmol/L (137-145) L 04/01/19 06:49 Potassium 3.5 mmol/L (3.6-5.0) L 04/01/19 06:49 Chloride 102.1 mmol/L (98-107) 04/01/19 06:49 Carbon Dioxide 19 mmol/L (22-30) L 04/01/19 06:49 18 mmol/L 04/01/19 06:49 BUN 10 mg/dL (7-17) 04/01/19 06:49 0.4 mg/dL (0.7-1.2) L 04/01/19 06:49 Estimated GFR > 60 ml/min 04/01/19 06:49 25 % 04/01/19 06:49 Glucose 121 mg/dL (65-100) H 04/01/19 06:49 Lactic Acid 1.20 mmol/L (0.7-2.0) 03/29/19 18:15 Calcium 8.2 mg/dL (8.4-10.2) L 04/01/19 06:49 Phosphorus 3.60 mg/dL (2.5-4.5) 04/01/19 06:49 Magnesium 2.00 mg/dL (1.7-2.3) 04/01/19 06:49 0.40 mg/dL (0.1-1.2) 04/01/19 05:30 TNR 04/01/19 05:30 TNR 04/01/19 05:30 AST 30 units/L (5-40) 04/01/19 05:30 ALT 56 units/L (7-56) 04/01/19 05:30 150 units/L (35-129) H 04/01/19 05:30 TNR 04/01/19 05:30 1.5 g/dL (3.9-5) L 04/01/19 05:30 0.5 % 04/01/19 05:30 HCG, Qual Negative (Negative) 03/29/19 19:26 Ibeth (Yellow) 03/29/19 22:28 Clear (Clear) 03/29/19 22:28 5.0 (5.0-7.0) 03/29/19 22:28 Ur Specific [place] > 1.059 (1.003-1.030) H 03/29/19 22:28 30 mg/dl mg/dL (Negative) 03/29/19 22:28 Neg mg/dL (Negative) 03/29/19 22:28 Neg mg/dL (Negative) 03/29/19 22:28 Sm (Negative) 03/29/19 22:28 Neg (Negative) 03/29/19 22:28 Neg (Negative) 03/29/19 22:28 4.0 mg/dL (<2.0) 03/29/19 22:28 Ur Leukocyte Esterase Neg (Negative) 03/29/19 22:28 2.0 /HPF (0.0-6.0) 03/29/19 22:28 20.0 /HPF (0.0-6.0) 03/29/19 22:28 U Epithel Cells (Auto) 6.0 /HPF (0-13.0) 03/29/19 22:28 3+ /HPF 03/29/19 22:28 Hepatitis A IgM Ab Non-reactive (NonReactive) 04/01/19 06:49 Hep Bs Antigen Non-reactive (Negative) 04/01/19 06:49 Hep B Core IgM Ab Non-reactive (NonReactive) 04/01/19 06:49 Non-reactive (NonReactive) 04/01/19 06:49 Active Medications - Current Medications Current Medications: Generic Name Dose Route Start Last Admin Trade Name Freq PRN Reason Stop Dose Admin Acetaminophen 650 mg 03/30/19 00:56 03/31/19 17:39 Tylenol PO 650 mg Q4H PRN Administration Pain MILD(1-3)/Fever >100.5/GUAMAN Acetaminophen 650 mg 04/01/19 13:01 Tylenol PO Q4H PRN Pain, Mild (1-3) Acetaminophen/Hydrocodone Bitart 1 each 04/01/19 13:01 [place] 5/325 PO Q6H PRN Pain, Moderate (4-6) Bisacodyl 10 mg 04/01/19 13:01 Dulcolax AR Q72H PRN Constipation Diphenhydramine HCl 25 mg 03/31/19 22:34 04/01/19 00:03 Benadryl IV 25 mg Q6H PRN Administration Itching Ferrous Gluconate 324 mg 04/02/19 10:00 Fergon PO QDAY FEDERICA Glycerin 1 supp 04/01/19 13:01 Glycerin Adult 2 Gm AR QDAY PRN Constipation Guaifenesin 200 mg 03/30/19 01:05 Robitussin PO Q4H PRN Cough Amino Acids/Electrolytes/Dextrose 1,800 mls @ 75 mls/hr 03/31/19 20:00 20:32 Tpn Adult IV 04/01/19 19:59 75 mls/hr DAILY@2000 [facility] Administration Protocol Micafungin Sodium 100 mg/ 100 mls @ 100 mls/hr 03/31/19 17:30 04/01/19 10:53 Sodium Chloride IV 100 mls/hr QDAY FEDERICA Administration Protocol Vancomycin HCl 750 mg/ Sodium 265 mls @ 166.667 mls/hr 04/01/19 05:00 04/01/19 05:00 Chloride IV 166.667 mls/hr Q12H FEDERICA Administration Amino Acids/Electrolytes/Dextrose 1,800 mls @ 75 mls/hr 04/01/19 20:00 Tpn Adult IV 04/02/19 19:59 DAILY@2000 [facility] Protocol Ibuprofen 600 mg 04/01/19 13:01 Motrin PO Q6HRT PRN Pain , Severe (7-10) Ondansetron HCl 4 mg 03/30/19 00:56 Zofran IV Q8H PRN Nausea And Vomiting Senna 17.2 mg 03/31/19 01:00 04/01/19 10:42 Senokot PO 17.2 mg Q12HR FEDERICA Administration Sodium Biphosphate/Sodium Phosphate 133 ml 03/31/19 10:00 04/01/19 10:45 Fleet AR 133 ml QDAY FEDERICA Administration Sodium Biphosphate/Sodium Phosphate 133 ml 04/02/19 10:00 Fleet AR QDAY FEDERICA Sodium Chloride 10 ml 03/30/19 10:00 03/31/19 22:31 Sodium Chloride Flush Syringe 10 Ml IV 10 ml BID FEDERICA Administration Sodium Chloride 10 ml 03/30/19 00:56 03/30/19 21:29 Sodium Chloride Flush Syringe 10 Ml IV 10 ml PRN PRN Administration LINE FLUSH Nutrition/Malnutrition Assess - Dietary Evaluation Nutrition/Malnutrition Findings: Nutrition Notes Start: 03/30/19 10:52 Freq: Status: Active Protocol: Document 04/01/19 10:14 LP (Rec: 04/01/19 10:16 LP [id number]) Nutrition Notes Initial or Follow up Reassessment Other Pertinent Diagnosis Upper resp infection, chronic SBO/intestinal dysfunction Current Diet Full Liquid Labs/Tests K 3.5 Pertinent Medications Reviewed Height 5 ft 3 in Weight 52 kg [place] Body Weight (kg) 52.27 BMI 20.2 Subjective/Other Information Pt not in room. Noted PICC line to be replaced. Will reduce to PPN. Burn Absent Trauma Absent #1 Nutrition Diagnosis Altered GI function Diagnosis Progress(for reassessment Continues documentation) Is patient on ventilator? No Is Patient Ambulatory and/or Out of Bed No REE-([place]-confined to bed) 1482.732 Kcal/Kg value to use for calculation 40 Approximate Energy Requirements Using 0 kcal/Kg Calculation Used for Recommendations Kcal/kg Additional Notes Pro needs 1.2-1.5g/k-69g/ day Fluid needs 1ml/kcal Nutrition Intervention Change Diet Order: PPN Nutrition Support: Change to PPN: 5.6% dextrose, MVI, Thiamine Kcal 620 Protein (gm) 70 Carbohydrates (gm) 100 Fat (gm) 0 Fluid (mL) 1,800 Fiber (gm) 0 Goal #1 PPN to meet nutrient needs as best possible Goal #2 Wt maintenance and/or gain Anticipated Discharge Needs: Continue CPN; PO diet as tolerated Follow-Up By: 04/02/19 Additional Comments Labs in AM: BMP, Mg, Phos, TG
[2019-04-01] MEDS ORDERED: KCL 40 MEQ in NACL 0.45% 500 ML IV SCH (13:15)
[2019-04-01] MEDS: SODIUM CHLORIDE FLUSH SYRINGE 10 ML IV SCH ×2 (16:08→22:28)
[2019-04-01] MEDS ORDERED: TPN ADULT 1,800 ML IV SCH (20:00)
[2019-04-01] MEDS ORDERED: TRIPLE ANTIBIOTIC TP ONE (20:00)
[2019-04-01] MEDS: LOVENOX SUB-Q SCH (22:23)
[2019-04-02] MEDS: VANCOMYCIN 750 MG in NACL 0.9% 250ML 250 ML IV SCH ×2 (05:18→18:48)
[2019-04-02] MEDS: SENOKOT PO SCH ×2 (09:51→21:17)
[2019-04-02] MEDS: FLEET PR SCH (09:51)
[2019-04-02] MEDS: SODIUM CHLORIDE FLUSH SYRINGE 10 ML IV SCH ×2 (09:51→22:18)
[2019-04-02] MEDS ORDERED: FLEET PR SCH (10:00)
[2019-04-02 10:29] LABS: BUN/Creatinine Ratio 28; Blood Urea Nitrogen 11 mg/dL (7-17); Calcium 8.5 mg/dL (8.4-10.2); Hemolysis Index 0
--- NOTE | 2019-04-02 14:16 | Progress Note ---
Assessment and Plan Assessment and plan: 24-year-old deaf female with history of chronic small bowel obstruction/intestinal dysfunction presents to ED with complaints of cough with yellow sputum production for the past 3 days and fever. The cough is intermittent but has progressively worsened over the past 3 days. Patient was seen by General surgery and her abdominal condition was chronic and no intervention needed at this time. 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 Chronic abdominal intestitanal dysmotilitydysfunction -chronic and stable - Surgery is following - Patient is on TPN and started on diet as tolerated hypokalemia replaced Severe malnutrition continue parenteral nutrition DVT prophylaxis; lovenox History Interval history: Review of systems Constitutional: No fevers, no malaise, no joint pains CVS: No chest pain, no orthopnea, no pedal edema GI: Continues to have chronic abdominal pain and distention, no diarrhea, no vomiting, no constipation Respiratory: No shortness of breath, no wheezing, no coughing Hospitalist Physical - Physical exam Narrative exam: General.: Appears well, no distress, nontoxic HEENT: Moist mucous membranes, extraocular muscles intact, no lymphadenopathy Neck: supple Cardiac: S1-S2 heard Lungs: clear to auscultation bilaterally Abdomen: soft , not tender, mildly distended,, bowel sounds positive Extremities: no edema clubbing or cyanosis Skin: no rash or lesions Neurologic: no gross focal deficits, from Psych: calm, and cooperative - Constitutional Vitals: Temp Pulse Resp BP Pulse Ox 98.1 F 91 H 18 92/58 97 04/02/19 04:22 04/02/19 04:22 04/02/19 04:22 04/02/19 04:22 04/02/19 04:22 Results - Labs CBC & Chem 7: 03/31/19 04:43 04/04/19 06:44 Labs: Laboratory Last Values WBC 3.8 K/mm3 (4.5-11.0) L 03/31/19 04:43 RBC 2.92 M/mm3 (3.65-5.03) L 03/31/19 04:43 Hgb 8.1 gm/dl (10.1-14.3) L 03/31/19 04:43 Hct 24.8 % (30.3-42.9) L 03/31/19 04:43 MCV 85 fl (79-97) 03/31/19 04:43 MCH 28 pg (28-32) 03/31/19 04:43 MCHC 33 % (30-34) 03/31/19 04:43 RDW 17.6 % (13.2-15.2) H 03/31/19 04:43 Plt Count 127 K/mm3 (140-440) L D 03/31/19 04:43 Lymph % (Auto) 14.1 % (13.4-35.0) 03/31/19 04:43 [place] % (Auto) 5.7 % (0.0-7.3) 03/31/19 04:43 Eos % (Auto) 1.5 % (0.0-4.3) 03/31/19 04:43 Baso % (Auto) 0.4 % (0.0-1.8) 03/31/19 04:43 Lymph # 0.5 K/mm3 (1.2-5.4) L 03/31/19 04:43 [place] # 0.2 K/mm3 (0.0-0.8) 03/31/19 04:43 Eos # 0.1 K/mm3 (0.0-0.4) 03/31/19 04:43 Baso # 0.0 K/mm3 (0.0-0.1) 03/31/19 04:43 Add Manual Diff TNR 03/29/19 18:15 Seg Neutrophils % 78.3 % (40.0-70.0) H 03/31/19 04:43 Seg Neutrophils # 3.0 K/mm3 (1.8-7.7) 03/31/19 04:43 Sodium 135 mmol/L (137-145) L 04/02/19 09:15 Potassium 4.4 mmol/L (3.6-5.0) D 04/02/19 09:15 Chloride 102.0 mmol/L (98-107) 04/02/19 09:15 Carbon Dioxide 22 mmol/L (22-30) 04/02/19 09:15 15 mmol/L 04/02/19 09:15 BUN 11 mg/dL (7-17) 04/02/19 09:15 0.4 mg/dL (0.7-1.2) L 04/02/19 09:15 Estimated GFR > 60 ml/min 04/02/19 09:15 28 % 04/02/19 09:15 Glucose 104 mg/dL (65-100) H 04/02/19 09:15 Lactic Acid 1.20 mmol/L (0.7-2.0) 03/29/19 18:15 Calcium 8.5 mg/dL (8.4-10.2) 04/02/19 09:15 Phosphorus 3.90 mg/dL (2.5-4.5) 04/02/19 09:15 Magnesium 2.10 mg/dL (1.7-2.3) 04/02/19 09:15 0.40 mg/dL (0.1-1.2) 04/01/19 05:30 TNR 04/01/19 05:30 TNR 04/01/19 05:30 AST 30 units/L (5-40) 04/01/19 05:30 ALT 56 units/L (7-56) 04/01/19 05:30 150 units/L (35-129) H 04/01/19 05:30 TNR 04/01/19 05:30 1.5 g/dL (3.9-5) L 04/01/19 05:30 0.5 % 04/01/19 05:30 Triglycerides 223 mg/dL (2-149) H 04/02/19 09:15 HCG, Qual Negative (Negative) 03/29/19 19:26 Ibeth (Yellow) 03/29/19 22:28 Clear (Clear) 03/29/19 22:28 5.0 (5.0-7.0) 03/29/19 22:28 Ur Specific [place] > 1.059 (1.003-1.030) H 03/29/19 22:28 30 mg/dl mg/dL (Negative) 03/29/19 22:28 Neg mg/dL (Negative) 03/29/19 22:28 Neg mg/dL (Negative) 03/29/19 22:28 Sm (Negative) 03/29/19 22:28 Neg (Negative) 03/29/19 22:28 Neg (Negative) 03/29/19 22:28 4.0 mg/dL (<2.0) 05/23/19 22:28 Ur Leukocyte Esterase Neg (Negative) 03/29/19 22:28 2.0 /HPF (0.0-6.0) 03/29/19 22:28 20.0 /HPF (0.0-6.0) 03/29/19 22:28 U Epithel Cells (Auto) 6.0 /HPF (0-13.0) 03/29/19 22:28 3+ /HPF 03/29/19 22:28 Hepatitis A IgM Ab Non-reactive (NonReactive) 04/01/19 06:49 Hep Bs Antigen Non-reactive (Negative) 04/01/19 06:49 Hep B Core IgM Ab Non-reactive (NonReactive) 04/01/19 06:49 Non-reactive (NonReactive) 04/01/19 06:49 Active Medications - Current Medications Current Medications: Generic Name Dose Route Start Last Admin Trade Name Freq PRN Reason Stop Dose Admin Acetaminophen 650 mg 04/01/19 13:01 Tylenol PO Q4H PRN Pain, Mild (1-3) Acetaminophen/Hydrocodone Bitart 1 each 04/01/19 13:01 [place] 5/325 PO Q6H PRN Pain, Moderate (4-6) Bisacodyl 10 mg 04/01/19 13:01 Dulcolax [place] Q72H PRN Constipation Diphenhydramine HCl 25 mg 03/31/19 22:34 04/01/19 00:03 Benadryl IV 25 mg Q6H PRN Administration Itching Enoxaparin Sodium 40 mg 04/01/19 22:00 04/01/19 22:23 Lovenox SUB-Q 40 mg QDAY@2200 [facility]ERICA Administration Ferrous Gluconate 324 mg 04/02/19 10:00 Fergon PO QDAY [place]ERICA Glycerin 1 supp 04/01/19 13:01 Glycerin Adult 2 Gm [place] QDAY PRN Constipation Guaifenesin 200 mg 03/30/19 01:05 Robitussin PO Q4H PRN Cough Micafungin Sodium 100 mg/ 100 mls @ 100 mls/hr 03/31/19 17:30 04/01/19 10:53 Sodium Chloride IV 100 mls/hr QDAY [place]ER[place] Administration Protocol Vancomycin HCl 750 mg/ Sodium 265 mls @ 166.667 mls/hr 04/01/19 05:00 04/02/19 05:18 Chloride IV 166.667 mls/hr Q12H FEDERICA Administration Amino Acids/Electrolytes/Dextrose 1,800 mls @ 75 mls/hr 04/01/19 20:00 04/01/19 20:28 Tpn Adult IV 04/02/19 19:59 75 mls/hr DAILY@1999 [facility] Administration Protocol Amino Acids/Electrolytes/Dextrose 1,800 mls @ 75 mls/hr 04/02/19 20:00 Tpn Adult IV 04/03/19 19:59 DAILY@1999 [facility] Protocol Ibuprofen 600 mg 04/01/19 13:01 Motrin PO Q6HRT PRN Pain , Severe (7-10) Ondansetron HCl 4 mg 03/30/19 00:56 Zofran IV Q8H PRN Nausea And Vomiting Senna 17.2 mg 03/31/19 01:00 04/02/19 09:51 Senokot PO 17.2 mg Q12HR FEDERICA Administration Sodium Biphosphate/Sodium Phosphate 133 ml 03/31/19 10:00 04/02/19 09:51 Fleet [place] 133 ml QDAY FEDERICA Administration Sodium Chloride 10 ml 03/30/19 10:00 04/02/19 09:51 Sodium Chloride Flush Syringe 10 Ml IV 10 ml BID FEDERICA Administration Sodium Chloride 10 ml 03/30/19 00:56 03/30/19 21:29 Sodium Chloride Flush Syringe 10 Ml IV 10 ml PRN PRN Administration LINE FLUSH Nutrition/Malnutrition Assess - Dietary Evaluation Nutrition/Malnutrition Findings: Nutrition Notes Start: 03/30/19 10:52 Freq: Status: Active Protocol: Document 04/01/19 10:14 LP (Rec: 04/01/19 10:16 LP [id number]) Nutrition Notes Initial or Follow up Reassessment Other Pertinent Diagnosis Upper resp infection, chronic SBO/intestinal dysfunction Current Diet Full Liquid Labs/Tests K 3.5 Pertinent Medications Reviewed Height 5 ft 3 in Weight 52 kg [place] Body Weight (kg) 52.27 BMI 20.2 Subjective/Other Information Pt not in room. Noted PICC line to be replaced. Will reduce to PPN. Burn Absent Trauma Absent #1 Nutrition Diagnosis Altered GI function Diagnosis Progress(for reassessment Continues documentation) Is patient on ventilator? No Is Patient Ambulatory and/or Out of Bed No [facility] 1482.732 Kcal/Kg value to use for calculation 40 Approximate Energy Requirements Using 0 kcal/Kg Calculation Used for Recommendations Kcal/kg Additional Notes Pro needs 1.2-1.5g/k-69g/ day Fluid needs 1ml/kcal Nutrition Intervention Change Diet Order: PPN Nutrition Support: Change to PPN: 5.6% dextrose, MVI, Thiamine Kcal 620 Protein (gm) 70 Carbohydrates (gm) 100 Fat (gm) 0 Fluid (mL) 1,800 Fiber (gm) 0 Goal #1 PPN to meet nutrient needs as best possible Goal #2 Wt maintenance and/or gain Anticipated Discharge Needs: Continue CPN; PO diet as tolerated Follow-Up By: 04/02/19 Additional Comments Labs in AM: BMP, Mg, Phos, TG
[2019-04-02] MEDS: MYCAMINE 100 MG in NACL 0.9% 100 ML IV SCH (14:30)
[2019-04-02] MEDS: FERGON PO SCH (14:40)
--- NOTE | 2019-04-02 19:06 | Progress Note ---
Assessment and Plan Cultures: 03/29/2019 blood culture: Astrid albicans and MRSE 4 of 4 bottles 03/29/2019 urine culture: Astrid albicans 03/31/2019 blood and fungal blood culture: no growth today A/P: 24-year-old female with history of chronic small bowel obstruction due to underlying intestinal dysfunction of unclear etiology, recent hospitalization for small bowel obstruction requiring exploratory laparotomy on 02/28/2019, deafness, on TPN, now admitted with: 1) Sepsis: secondary to candidemia and MRSE bacteremia, likely source is PICC line infection: Especially in the setting of TPN. Patient is hemodynamically stable, s/p PICC removal. TTE no vegetations. TTE report reviewed, unremarkable. 2) Candiduria: likely extravasation from candidemia, no urinary complaints. No pyuria. No treatment indicated. 3) Elevated LFTs: Could be from sepsis. Trend improving. Hep panel pending. 4) Leukopenia, thrombocytopenia: Possibly from sepsis, monitor. 5) Chronic intestinal dysfunction: has been on TPN. Recs: stop micafungin start fluconazole IV 400 mg q day continue IV vancomycin, target vanc trough: 10-20 mcg/ml f/u repeat blood cultures to ensure clearance Will follow Dia Fox MD [facility] O: [phone] F: [phone] Subjective Date of service: 04/02/19 Principal diagnosis: fungemia Interval history: Patient feels ok, no fever Objective - Exam Narrative Exam: Constitutional: Alert, cooperative. Head, Ears, Nose: Normocephalic, atraumatic. External ears, nose normal. Deafness + Eyes: Conjunctivae/corneas clear. No icterus. No ptosis. Neck: Supple, no meningeal signs Oral: no thrush Cardiovascular: RRR Respiratory: Good air entry, clear to auscultation bilaterally GI: distended but feels soft compared to yesterday, non-tender; midline surgical incision intact, bowel sounds +. No peritoneal signs Musculoskeletal: No pedal edema, no cyanosis. Skin: No rash or abscess Hem/Lymphatic: No palpable cervical or supraclavicular nodes. No lymphangitis Psych: no agitation Neurological: Awake, alert. - Constitutional Vitals: Vital Signs Temp Pulse Resp BP Pulse Ox 97.5 F L 98 H 18 83/50 99 04/02/19 18:14 04/02/19 18:14 04/02/19 18:14 04/02/19 18:14 04/02/19 18:14 Temperature -Last 24 Hours Temperature 97.5 F Temperature 97.3 F Temperature 98.1 F Temperature 98.2 F - Labs CBC & Chem 7: 03/31/19 04:43 04/02/19 09:15 Labs: Abnormal lab results 04/02/19 Range/Units 09:15 Sodium 135 L (137-145) mmol/L Creatinine 0.4 L (0.7-1.2) mg/dL Glucose 104 H (65-100) mg/dL Triglycerides 223 H (2-149) mg/dL
[2019-04-02] MEDS ORDERED: TPN ADULT 3,000 ML IV SCH (20:00)
[2019-04-02] MEDS ORDERED: TPN ADULT 1,800 ML IV SCH ×2 (20:00)
[2019-04-02] MEDS: DIFLUCAN 200 ML IV SCH (20:41)
[2019-04-02] MEDS: LOVENOX SUB-Q SCH (21:16)
[2019-04-03] MEDS: VANCOMYCIN 750 MG in NACL 0.9% 250ML 250 ML IV SCH ×2 (05:03→17:01)
[2019-04-03 08:09] LABS: BUN/Creatinine Ratio 28; Blood Urea Nitrogen 11 mg/dL (7-17); Calcium 8.5 mg/dL (8.4-10.2); Hemolysis Index 1
[2019-04-03] MEDS: SENOKOT PO SCH ×3 (10:53→22:09)
[2019-04-03] MEDS: FERGON PO SCH (10:53)
[2019-04-03] MEDS: FLEET PR SCH ×2 (10:58→13:53)
[2019-04-03] MEDS: SODIUM CHLORIDE FLUSH SYRINGE 10 ML IV SCH ×2 (10:59→22:09)
[2019-04-03] MEDS: DIFLUCAN 200 ML IV SCH (10:59)
--- NOTE | 2019-04-03 11:30 | Progress Note ---
Assessment and Plan Cultures: 03/29/2019 blood culture: Astrid albicans and MRSE 4 of 4 bottles 03/29/2019 urine culture: Astrid albicans 03/31/2019 Astrid albicans A/P: 24-year-old female with history of chronic small bowel obstruction due to underlying intestinal dysfunction of unclear etiology, recent hospitalization for small bowel obstruction requiring exploratory laparotomy on 02/28/2019, jennifer fness, on TPN, now admitted with: 1) Sepsis: secondary to candidemia and MRSE bacteremia, likely source is PICC line infection: Especially in the setting of TPN. Patient is hemodynamically stable, s/p PICC removal. TTE no vegetations. TTE report reviewed, unremarkable. 2) Candiduria: likely extravasation from candidemia, no urinary complaints. No pyuria. No treatment indicated. 3) Elevated LFTs: Could be from sepsis. Trend improving. Hep panel pending. 4) Leukopenia, thrombocytopenia: Possibly from sepsis, monitor. 5) Chronic intestinal dysfunction: has been on TPN. Recs: recheck blood cultures - blood culture from 03/31 still positive for Astrid (micafungin started on 03/31) continue fluconazole IV 400 mg q day D2 continue IV vancomycin, target vanc trough: 10-20 mcg/ml D3 at discharge will do vancomycin IV and fluconoazole PO total 14 days from negative blood cultures Will follow MD Jamilah [facility] O: [phone] F: [phone] Subjective Date of service: 04/03/19 Principal diagnosis: fungemia Interval history: Patient feels ok, no fever, communicating via writing notes. Objective - Exam Narrative Exam: Constitutional: Alert, cooperative. Head, Ears, Nose: Normocephalic, atraumatic. External ears, nose normal. Deafness + Eyes: Conjunctivae/corneas clear. No icterus. No ptosis. Neck: Supple, no meningeal signs Oral: no thrush Cardiovascular: RRR Respiratory: Good air entry, clear to auscultation bilaterally GI: distended but feels soft compared to yesterday, non-tender; midline surgical incision intact, bowel sounds +. No peritoneal signs Musculoskeletal: No pedal edema, no cyanosis. Skin: No rash or abscess Hem/Lymphatic: No palpable cervical or supraclavicular nodes. No lymphangitis Psych: no agitation Neurological: Awake, alert. Deaf - Constitutional Vitals: Vital Signs Temp Pulse Resp BP Pulse Ox 97.6 F 79 20 83/49 99 04/03/19 04:17 04/03/19 04:17 04/03/19 04:17 04/03/19 04:17 04/03/19 04:17 Temperature -Last 24 Hours Temperature 97.6 F Temperature 97.9 F Temperature 97.5 F Temperature 97.3 F - Labs CBC & Chem 7: 03/31/19 04:43 04/03/19 06:54 Labs: Abnormal lab results 04/03/19 04/03/19 Range/Units 06:54 06:54 Sodium 135 L (137-145) mmol/L Carbon Dioxide 19 L (22-30) mmol/L Creatinine 0.4 L (0.7-1.2) mg/dL Vancomycin Trough 24.1 H (5.0-20.0) ug/mL
--- NOTE | 2019-04-03 13:52 | Event Note ---
Date: 04/03/19 Pt feeling much better. Abd much less distended. Will try to advance to soft diet. Ok to discharge from surgical perspective at any time. I gave her info on an intestinal dysfunction specialist (Sushil Hernández) and spoke to mom on the phone. Will try to put referral in for out-pt eval Will ask Case Management if there are any other options for PICC line/TPN care after discharge. The last home health company never came out leaving mom to take care of it on her own which may have contributed to this current line infection. Also, the mom mentioned that she is not able to afford the TPN. We will ask Case Management to help with this as well. Please call with questions. Time=10min
--- NOTE | 2019-04-03 14:45 | Progress Note ---
Assessment and Plan Assessment and plan: 24-year-old deaf female with history of chronic small bowel obstruction/intestinal dysfunction presents to ED with complaints of cough with yellow sputum production for the past 3 days and fever. The cough is intermittent but has progressively worsened over the past 3 days. Patient was seen by General surgery and her abdominal condition was chronic and no intervention needed at this time. 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 and stable - Surgery is following - Patient is on TPN and started on diet as tolerated hypokalemia replaced Severe malnutrition continue parenteral nutrition DVT prophylaxis; lovenox History Interval history: Review of systems Constitutional: No fevers, no malaise, no joint pains CVS: No chest pain, no orthopnea, no pedal edema GI: Continues to have chronic abdominal pain and distention, no diarrhea, no vomiting, no constipation Respiratory: No shortness of breath, no wheezing, no coughing Hospitalist Physical - Physical exam Narrative exam: General.: Appears well, no distress, nontoxic HEENT: Moist mucous membranes, extraocular muscles intact, no lymphadenopathy Neck: supple Cardiac: S1-S2 heard Lungs: clear to auscultation bilaterally Abdomen: soft , not tender, mildly distended,, bowel sounds positive Extremities: no edema clubbing or cyanosis Skin: no rash or lesions Neurologic: no gross focal deficits, from Psych: calm, and cooperative - Constitutional Vitals: Temp Pulse Resp BP Pulse Ox 97.2 F L 85 18 87/49 98 04/03/19 12:06 04/03/19 12:06 04/03/19 12:06 04/03/19 12:06 04/03/19 12:06 Results - Labs CBC & Chem 7: 03/31/19 04:43 04/04/19 06:44 Labs: Laboratory Last Values WBC 3.8 K/mm3 (4.5-11.0) L 03/31/19 04:43 RBC 2.92 M/mm3 (3.65-5.03) L 03/31/19 04:43 Hgb 8.1 gm/dl (10.1-14.3) L 03/31/19 04:43 Hct 24.8 % (30.3-42.9) L 03/31/19 04:43 MCV 85 fl (79-97) 03/31/19 04:43 MCH 28 pg (28-32) 03/31/19 04:43 MCHC 33 % (30-34) 03/31/19 04:43 RDW 17.6 % (13.2-15.2) H 03/31/19 04:43 Plt Count 127 K/mm3 (140-440) L D 03/31/19 04:43 Lymph % (Auto) 14.1 % (13.4-35.0) 03/31/19 04:43 [place] % (Auto) 5.7 % (0.0-7.3) 03/31/19 04:43 Eos % (Auto) 1.5 % (0.0-4.3) 03/31/19 04:43 Baso % (Auto) 0.4 % (0.0-1.8) 03/31/19 04:43 Lymph # 0.5 K/mm3 (1.2-5.4) L 03/31/19 04:43 [place] # 0.2 K/mm3 (0.0-0.8) 03/31/19 04:43 Eos # 0.1 K/mm3 (0.0-0.4) 03/31/19 04:43 Baso # 0.0 K/mm3 (0.0-0.1) 03/31/19 04:43 Add Manual Diff TNR 03/29/19 18:15 Seg Neutrophils % 78.3 % (40.0-70.0) H 03/31/19 04:43 Seg Neutrophils # 3.0 K/mm3 (1.8-7.7) 03/31/19 04:43 Sodium 135 mmol/L (137-145) L 04/03/19 06:54 Potassium 4.3 mmol/L (3.6-5.0) 04/03/19 06:54 Chloride 104.8 mmol/L (98-107) 04/03/19 06:54 Carbon Dioxide 19 mmol/L (22-30) L 04/03/19 06:54 16 mmol/L 04/03/19 06:54 BUN 11 mg/dL (7-17) 04/03/19 06:54 0.4 mg/dL (0.7-1.2) L 04/03/19 06:54 Estimated GFR > 60 ml/min 04/03/19 06:54 28 % 04/03/19 06:54 Glucose 99 mg/dL (65-100) 04/03/19 06:54 Lactic Acid 1.20 mmol/L (0.7-2.0) 03/29/19 18:15 Calcium 8.5 mg/dL (8.4-10.2) 04/03/19 06:54 Phosphorus 4.40 mg/dL (2.5-4.5) 04/03/19 06:54 Magnesium 2.10 mg/dL (1.7-2.3) 04/03/19 06:54 0.40 mg/dL (0.1-1.2) 04/01/19 05:30 TNR 04/01/19 05:30 TNR 04/01/19 05:30 AST 30 units/L (5-40) 04/01/19 05:30 ALT 56 units/L (7-56) 04/01/19 05:30 150 units/L (35-129) H 04/01/19 05:30 TNR 04/01/19 05:30 1.5 g/dL (3.9-5) L 04/01/19 05:30 0.5 % 04/01/19 05:30 Triglycerides 223 mg/dL (2-149) H 04/02/19 09:15 HCG, Qual Negative (Negative) 03/29/19 19:26 Ibeth (Yellow) 03/29/19 22:28 Clear (Clear) 03/29/19 22:28 5.0 (5.0-7.0) 03/29/19 22:28 Ur Specific [place] > 1.059 (1.003-1.030) H 03/29/19 22:28 30 mg/dl mg/dL (Negative) 03/29/19 22:28 Neg mg/dL (Negative) 03/29/19 22:28 Neg mg/dL (Negative) 03/29/19 22:28 Sm (Negative) 03/29/19 22:28 Neg (Negative) 03/29/19 22:28 Neg (Negative) 03/29/19 22:28 4.0 mg/dL (<2.0) 03/29/19 22:28 Ur Leukocyte Esterase Neg (Negative) 03/29/19 22:28 2.0 /HPF (0.0-6.0) 03/29/19 22:28 20.0 /HPF (0.0-6.0) 03/29/19 22:28 U Epithel Cells (Auto) 6.0 /HPF (0-13.0) 03/29/19 22:28 3+ /HPF 03/29/19 22:28 Vancomycin Trough 24.1 ug/mL (5.0-20.0) H 04/03/19 06:54 Hepatitis A IgM Ab Non-reactive (NonReactive) 04/01/19 06:49 Hep Bs Antigen Non-reactive (Negative) 04/01/19 06:49 Hep B Core IgM Ab Non-reactive (NonReactive) 04/01/19 06:49 Non-reactive (NonReactive) 04/01/19 06:49 Active Medications - Current Medications Current Medications: Generic Name Dose Route Start Last Admin Trade Name Freq PRN Reason Stop Dose Admin Acetaminophen 650 mg 04/01/19 13:01 Tylenol PO Q4H PRN Pain, Mild (1-3) Acetaminophen/Hydrocodone Bitart 1 each 04/01/19 13:01 [place] 5/325 PO Q6H PRN Pain, Moderate (4-6) Bisacodyl 10 mg 04/01/19 13:01 Dulcolax VA Q72H PRN Constipation Diphenhydramine HCl 25 mg 03/31/19 22:34 04/01/19 00:03 Benadryl IV 25 mg Q6H PRN Administration Itching Enoxaparin Sodium 40 mg 04/01/19 22:00 04/02/19 21:16 Lovenox SUB-Q 40 mg QDAY@2200 FEDERICA Administration Ferrous Gluconate 324 mg 04/02/19 10:00 04/03/19 10:53 Fergon PO 324 mg QDAY FEDERICA Administration Glycerin 1 supp 04/01/19 13:01 Glycerin Adult 2 Gm VA QDAY PRN Constipation Guaifenesin 200 mg 03/30/19 01:05 Robitussin PO Q4H PRN Cough Vancomycin HCl 750 mg/ Sodium 265 mls @ 166.667 mls/hr 04/01/19 05:00 04/03/19 05:03 Chloride IV 166.667 mls/hr Q12H FEDERICA Administration Amino Acids/Electrolytes/Dextrose 1,800 mls @ 75 mls/hr 04/02/19 20:00 04/02/19 20:28 Tpn Adult IV 04/03/19 19:59 75 mls/hr DAILY@1999 FED[facility]ICA Administration Protocol Fluconazole 200 mls @ 100 mls/hr 04/02/19 20:00 04/03/19 10:59 Diflucan IV 100 mls/hr Q24HR FEDERICA Administration Protocol Amino Acids/Electrolytes/Dextrose 1,800 mls @ 75 mls/hr 04/03/19 20:00 Tpn Adult IV 04/04/19 19:59 DAILY@1999 [facility] Protocol Ibuprofen 600 mg 04/01/19 13:01 Motrin PO Q6HRT PRN Pain , Severe (7-10) Ondansetron HCl 4 mg 03/30/19 00:56 Zofran IV Q8H PRN Nausea And Vomiting Senna 17.2 mg 03/31/19 01:00 04/03/19 11:03 Senokot PO Not Given Q12HR [facility]ERICA Sodium Biphosphate/Sodium Phosphate 133 ml 03/31/19 10:00 04/03/19 13:53 [place] VA Not Given QDAY FEDERICA Sodium Chloride 10 ml 03/30/19 10:00 04/03/19 10:59 Sodium Chloride Flush Syringe 10 Ml IV 10 ml BID FEDERICA Administration Sodium Chloride 10 ml 03/30/19 00:56 03/30/19 21:29 Sodium Chloride Flush Syringe 10 Ml IV 10 ml PRN PRN Administration LINE FLUSH Nutrition/Malnutrition Assess - Dietary Evaluation Nutrition/Malnutrition Findings: Nutrition Notes Start: 03/30/19 10:52 Freq: Status: Active Protocol: Document 04/02/19 15:22 CLOVER (Rec: 04/02/19 15:27 [facility] [email or web address]) Nutrition Notes Initial or Follow up Reassessment Other Pertinent Diagnosis Upper resp infection, chronic SBO/intestinal dysfunction Current Diet Full Liquid + PPN at 75ml/hr Labs/Tests Na 135 TG 223 Pertinent Medications Ferrous gluconate Height 5 ft 3 in Weight 52 kg [place] Body Weight (kg) 52.27 BMI 20.2 Subjective/Other Information Day 4 PN. Pt with midline iv access. Percent of energy/protein needs met: 42% energy 100% pro Burn Absent Trauma Absent #1 Nutrition Diagnosis Altered GI function Diagnosis Progress(for reassessment Continues documentation) Is patient on ventilator? No Is Patient Ambulatory and/or Out of Bed No REE-([place]-confined to bed) 1482.732 Kcal/Kg value to use for calculation 35 Approximate Energy Requirements Using 1820 kcal/Kg Calculation Used for Recommendations Kcal/kg Additional Notes Pro needs 1.2-1.5g/k-78g/ day Fluid needs 1ml/kcal Nutrition Intervention Nutrition Support: Continue PPN at 75ml/hr: MVI. Osmolality: 887. Kcal 620 Protein (gm) 70 Carbohydrates (gm) 100 Fat (gm) 0 Fluid (mL) 1,800 Fiber (gm) 0 Goal #1 PPN to meet nutrient needs as best possible Goal #2 Wt maintenance and/or gain Follow-Up By: 04/03/19 Additional Comments Labs in am: BMP, Mg, Phos
[2019-04-03] MEDS ORDERED: TPN ADULT 1,800 ML IV SCH (20:00)
[2019-04-03] MEDS: LOVENOX SUB-Q SCH (22:08)
[2019-04-04] MEDS: VANCOMYCIN 750 MG in NACL 0.9% 250ML 250 ML IV SCH (05:36)
[2019-04-04 07:28] LABS: BUN/Creatinine Ratio 22; Blood Urea Nitrogen 11 mg/dL (7-17); Hemolysis Index 2
[2019-04-04] MEDS: SENOKOT PO SCH ×2 (09:02→22:43)
[2019-04-04] MEDS: FLEET PR SCH (09:03)
[2019-04-04] MEDS: FERGON PO SCH (12:06)
[2019-04-04] MEDS: DIFLUCAN 200 ML IV SCH (12:06)
[2019-04-04] MEDS: SODIUM CHLORIDE FLUSH SYRINGE 10 ML IV SCH ×2 (12:07→22:43)
--- NOTE | 2019-04-04 13:17 | Progress Note ---
Assessment and Plan Assessment and plan: 24-year-old deaf female with history of chronic small bowel obstruction/intestinal dysfunction presents to ED with complaints of cough with yellow sputum production for the past 3 days and fever. The cough is intermittent but has progressively worsened over the past 3 days. Patient was seen by General surgery and her abdominal condition was chronic and no intervention needed at this time. 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 need IV abx and antifungals and home TPN set up prior to dc Chronic abdominal intestitanal dysmotilitydysfunction -chronic and stable - Surgery is following - Patient is on TPN and started on diet as tolerated hypokalemia replaced Severe malnutrition continue parenteral nutrition DVT prophylaxis; lovenox dispo; need IV abx and antifungals and home TPN set up prior to dc, cm aware History Interval history: Review of systems Constitutional: No fevers, no malaise, no joint pains CVS: No chest pain, no orthopnea, no pedal edema GI: Continues to have chronic abdominal pain and distention, no diarrhea, no vomiting, no constipation Respiratory: No shortness of breath, no wheezing, no coughing Hospitalist Physical - Physical exam Narrative exam: General.: Appears well, no distress, nontoxic HEENT: Moist mucous membranes, extraocular muscles intact, no lymphadenopathy Neck: supple Cardiac: S1-S2 heard Lungs: clear to auscultation bilaterally Abdomen: soft , not tender, mildly distended,, bowel sounds positive Extremities: no edema clubbing or cyanosis Skin: no rash or lesions Neurologic: no gross focal deficits, from Psych: calm, and cooperative - Constitutional Vitals: Temp Pulse Resp BP Pulse Ox 97.1 F L 72 16 103/67 97 04/04/19 06:11 04/04/19 06:11 04/04/19 06:11 04/04/19 06:11 04/04/19 06:11 Results - Labs CBC & Chem 7: 03/31/19 04:43 04/04/19 06:44 Labs: Laboratory Last Values WBC 3.8 K/mm3 (4.5-11.0) L 03/31/19 04:43 RBC 2.92 M/mm3 (3.65-5.03) L 03/31/19 04:43 Hgb 8.1 gm/dl (10.1-14.3) L 03/31/19 04:43 Hct 24.8 % (30.3-42.9) L 03/31/19 04:43 MCV 85 fl (79-97) 03/31/19 04:43 MCH 28 pg (28-32) 03/31/19 04:43 MCHC 33 % (30-34) 03/31/19 04:43 RDW 17.6 % (13.2-15.2) H 03/31/19 04:43 Plt Count 127 K/mm3 (140-440) L D 03/31/19 04:43 Lymph % (Auto) 14.1 % (13.4-35.0) 03/31/19 04:43 [place] % (Auto) 5.7 % (0.0-7.3) 03/31/19 04:43 Eos % (Auto) 1.5 % (0.0-4.3) 03/31/19 04:43 Baso % (Auto) 0.4 % (0.0-1.8) 03/31/19 04:43 Lymph # 0.5 K/mm3 (1.2-5.4) L 03/31/19 04:43 [place] # 0.2 K/mm3 (0.0-0.8) 03/31/19 04:43 Eos # 0.1 K/mm3 (0.0-0.4) 03/31/19 04:43 Baso # 0.0 K/mm3 (0.0-0.1) 03/31/19 04:43 Add Manual Diff TNR 03/29/19 18:15 Seg Neutrophils % 78.3 % (40.0-70.0) H 03/31/19 04:43 Seg Neutrophils # 3.0 K/mm3 (1.8-7.7) 03/31/19 04:43 Sodium 137 mmol/L (137-145) 04/04/19 06:44 Potassium 4.7 mmol/L (3.6-5.0) 04/04/19 06:44 Chloride 102.4 mmol/L (98-107) 04/04/19 06:44 Carbon Dioxide 24 mmol/L (22-30) 04/04/19 06:44 15 mmol/L 04/04/19 06:44 BUN 11 mg/dL (7-17) 04/04/19 06:44 0.5 mg/dL (0.7-1.2) L 04/04/19 06:44 Estimated GFR > 60 ml/min 04/04/19 06:44 22 % 04/04/19 06:44 Glucose 90 mg/dL (65-100) 04/04/19 06:44 Lactic Acid 1.20 mmol/L (0.7-2.0) 03/29/19 18:15 Calcium 9.0 mg/dL (8.4-10.2) 04/04/19 06:44 Phosphorus 4.60 mg/dL (2.5-4.5) H 04/04/19 06:44 Magnesium 2.30 mg/dL (1.7-2.3) 04/04/19 06:44 0.40 mg/dL (0.1-1.2) 04/01/19 05:30 TNR 04/01/19 05:30 TNR 04/01/19 05:30 AST 30 units/L (5-40) 04/01/19 05:30 ALT 56 units/L (7-56) 04/01/19 05:30 150 units/L (35-129) H 04/01/19 05:30 TNR 04/01/19 05:30 1.5 g/dL (3.9-5) L 04/01/19 05:30 0.5 % 04/01/19 05:30 Triglycerides 223 mg/dL (2-149) H 04/02/19 09:15 HCG, Qual Negative (Negative) 03/29/19 19:26 Ibeth (Yellow) 03/29/19 22:28 Clear (Clear) 03/29/19 22:28 5.0 (5.0-7.0) 03/29/19 22:28 Ur Specific [place] > 1.059 (1.003-1.030) H 03/29/19 22:28 30 mg/dl mg/dL (Negative) 03/29/19 22:28 Neg mg/dL (Negative) 03/29/19 22:28 Neg mg/dL (Negative) 03/29/19 22:28 Sm (Negative) 03/29/19 22:28 Neg (Negative) 03/29/19 22:28 Neg (Negative) 03/29/19 22:28 4.0 mg/dL (<2.0) 03/29/19 22:28 Ur Leukocyte Esterase Neg (Negative) 03/29/19 22:28 2.0 /HPF (0.0-6.0) 03/29/19 22:28 20.0 /HPF (0.0-6.0) 03/29/19 22:28 U Epithel Cells (Auto) 6.0 /HPF (0-13.0) 03/29/19 22:28 3+ /HPF 03/29/19 22:28 Vancomycin Trough 6.8 ug/mL (5.0-20.0) 04/03/19 15:39 Hepatitis A IgM Ab Non-reactive (NonReactive) 04/01/19 06:49 Hep Bs Antigen Non-reactive (Negative) 04/01/19 06:49 Hep B Core IgM Ab Non-reactive (NonReactive) 04/01/19 06:49 Non-reactive (NonReactive) 04/01/19 06:49 Active Medications - Current Medications Current Medications: Generic Name Dose Route Start Last Admin Trade Name Freq PRN Reason Stop Dose Admin Acetaminophen 650 mg 04/01/19 13:01 Tylenol PO Q4H PRN Pain, Mild (1-3) Acetaminophen/Hydrocodone Bitart 1 each 04/01/19 13:01 [place] 5/325 PO Q6H PRN Pain, Moderate (4-6) Bisacodyl 10 mg 04/01/19 13:01 Dulcolax [place] Q72H PRN Constipation Diphenhydramine HCl 25 mg 03/31/19 22:34 04/01/19 00:03 Benadryl IV 25 mg Q6H PRN Administration Itching Enoxaparin Sodium 40 mg 04/01/19 22:00 04/03/19 22:08 Lovenox SUB-Q 40 mg QDAY@2200 [facility] Administration Ferrous Gluconate 324 mg 04/02/19 10:00 04/04/19 12:06 Fergon PO 324 mg QDAY [facility]ERICA Administration Glycerin 1 supp 04/01/19 13:01 Glycerin Adult 2 Gm NC QDAY PRN Constipation Guaifenesin 200 mg 03/30/19 01:05 Robitussin PO Q4H PRN Cough Fluconazole 200 mls @ 100 mls/hr 04/02/19 20:00 04/04/19 12:06 Diflucan IV 100 mls/hr Q24HR [facility]ERICA Administration Protocol Amino Acids/Electrolytes/Dextrose 1,800 mls @ 75 mls/hr 04/03/19 20:00 04/03/19 22:43 Tpn Adult IV 04/04/19 19:59 75 mls/hr DAILY@1999 [facility] Administration Protocol Vancomycin HCl 1 gm in 250 mls @ 167.007 mls/hr 04/04/19 14:00 Vancomycin/Ns 1 Gm/250 Ml IV Q8HR [facility]ERICA Amino Acids/Electrolytes/Dextrose 1,800 mls @ 75 mls/hr 04/04/19 20:00 Tpn Adult IV 04/05/19 19:59 DAILY@1999 [facility] Protocol Ibuprofen 600 mg 04/01/19 13:01 Motrin PO Q6HRT PRN Pain , Severe (7-10) Ondansetron HCl 4 mg 03/30/19 00:56 Zofran IV Q8H PRN Nausea And Vomiting Senna 17.2 mg 03/31/19 01:00 04/04/19 09:02 Senokot PO Not Given Q12HR [facility] Sodium Biphosphate/Sodium Phosphate 133 ml 03/31/19 10:00 04/04/19 09:03 Fleet [place] Not Given QDAY FEDERICA Sodium Chloride 10 ml 03/30/19 10:00 04/04/19 12:07 Sodium Chloride Flush Syringe 10 Ml IV 10 ml BID FEDERICA Administration Sodium Chloride 10 ml 03/30/19 00:56 03/30/19 21:29 Sodium Chloride Flush Syringe 10 Ml IV 10 ml PRN PRN Administration LINE FLUSH Nutrition/Malnutrition Assess - Dietary Evaluation Nutrition/Malnutrition Findings: Nutrition Notes Start: 03/30/19 10:52 Freq: Status: Active Protocol: Document 04/03/19 16:24 CLOVER (Rec: 04/03/19 16:31 [facility] [email or web address]) Nutrition Notes Initial or Follow up Reassessment Other Pertinent Diagnosis Candidemia, Chronic abdominal dysfunction Current Diet GI soft + PPN at 75ml/hr Labs/Tests Na 135 CO2 - 19 Pertinent Medications Reviewed Height 5 ft 3 in Weight 49.3 kg [place] Body Weight (kg) 52.27 BMI 19.2 Weight change and time frame Current wt obtained from bed scale Subjective/Other Information Day 5 PN. Pt willing to drink Ensure daily. Diet advanced for dinner tonight. Percent of energy/protein needs met: 41% energy 100% pro (from PPN only) Burn Absent Trauma Absent #1 Nutrition Diagnosis Altered GI function Diagnosis Progress(for reassessment Continues documentation) Is patient on ventilator? No Is Patient Ambulatory and/or Out of Bed No REE-([facility]-confined to bed) 1450.356 Calculation Used for Recommendations [facility] Additional Notes Pro needs 1.2-1.5g/k-74g/ day Fluid needs 1ml/kcal Nutrition Intervention Nutrition Support: Continue PPN at 75ml/hr: MVI, 3.6% amino acids, 150mEq Na, 20mmol Phos, 25%/75% chloride/ acetate. Osmolality: 876. Kcal 600 Protein (gm) 65 Carbohydrates (gm) 100 Fat (gm) 0 Fluid (mL) 1,800 Fiber (gm) 0 Goal #1 PPN + PO intakes to meet nutrient needs as best possible Goal #2 Wt maintenance and/or gain Follow-Up By: 04/04/19 Additional Comments Labs in am: BMP, Mg, Phos F/U: PO tolerance
[2019-04-04] MEDS: VANCOMYCIN/NS 1 GM/250 ML 1 GM/250 ML BAG IV SCH ×2 (15:50→23:07)
[2019-04-04] MEDS ORDERED: TPN ADULT 1,800 ML IV SCH (20:00)
--- NOTE | 2019-04-04 21:10 | Progress Note ---
Assessment and Plan Cultures: 03/29/2019 blood culture: Astrid albicans and MRSE 4 of 4 bottles 03/29/2019 urine culture: Astrid albicans 03/31/2019 Astrid albicans 04/03/2019 Blood culture no growth today A/P: 24-year-old female with history of chronic small bowel obstruction due to underlying intestinal dysfunction of unclear etiology, recent hospitalization for small bowel obstruction requiring exploratory laparotomy on 02/28/2019, deafness, on TPN, now admitted with: 1) Sepsis: secondary to candidemia and MRSE bacteremia, likely source is PICC line infection: Especially in the setting of TPN. Patient is hemodynamically stable, s/p PICC removal. TTE no vegetations. TTE report reviewed, unremarkable. 2) Candiduria: likely extravasation from candidemia, no urinary complaints. No pyuria. No treatment indicated. 3) Elevated LFTs: Could be from sepsis. Trend improving. Hep panel pending. 4) Leukopenia, thrombocytopenia: Possibly from sepsis, monitor. 5) Chronic intestinal dysfunction: has been on TPN. Recs: recheck blood cultures - blood culture from 03/31 still positive for Astrid (micafungin started on 03/31) continue fluconazole IV 400 mg q day D3 continue IV vancomycin, target vanc trough: 10-20 mcg/ml D4 at discharge will do vancomycin IV and fluconoazole PO total 14 days from negative blood cultures until 04/08/2019 PICC to be placed was blood culture negative x 48h. Will follow MD Jamilah [facility] O: [phone] F: [phone] Subjective Date of service: 04/04/19 Principal diagnosis: fungemia Interval history: Patient feels ok, no fever, communicating via writing notes. Objective - Exam Narrative Exam: Constitutional: Alert, cooperative. Head, Ears, Nose: Normocephalic, atraumatic. External ears, nose normal. Deafness + Eyes: Conjunctivae/corneas clear. No icterus. No ptosis. Neck: Supple, no meningeal signs Oral: no thrush Cardiovascular: RRR Respiratory: Good air entry, clear to auscultation bilaterally GI: distended but feels soft compared to yesterday, non-tender; midline surgical incision intact, bowel sounds +. No peritoneal signs Musculoskeletal: No pedal edema, no cyanosis. Skin: No rash or abscess Hem/Lymphatic: No palpable cervical or supraclavicular nodes. No lymphangitis Psych: no agitation Neurological: Awake, alert. Deaf - Constitutional Vitals: Vital Signs Temp Pulse Resp BP Pulse Ox 97.6 F 61 18 94/56 92 04/04/19 16:40 04/04/19 16:40 04/04/19 16:40 04/04/19 16:40 04/04/19 16:40 Temperature -Last 24 Hours Temperature 97.6 F Temperature 97.4 F Temperature 97.1 F Temperature 97.7 F Temperature 97.7 F - Labs CBC & Chem 7: 03/31/19 04:43 04/04/19 06:44 Labs: Abnormal lab results 04/04/19 Range/Units 06:44 Creatinine 0.5 L (0.7-1.2) mg/dL Phosphorus 4.60 H (2.5-4.5) mg/dL
[2019-04-04] MEDS: LOVENOX SUB-Q SCH (22:43)
[2019-04-05 05:20] LABS: BUN/Creatinine Ratio 47; Blood Urea Nitrogen 14 mg/dL (7-17); Calcium 9.1 mg/dL (8.4-10.2); Hemolysis Index 5
[2019-04-05] MEDS: VANCOMYCIN/NS 1 GM/250 ML 1 GM/250 ML BAG IV SCH ×3 (06:25→22:39)
--- NOTE | 2019-04-05 09:12 | Progress Note ---
Assessment and Plan - Patient Problems (1) Dilated bowel Current Visit: Yes Status: Acute Plan to address problem: Pt stable. She looks so much better! Her abdominal distention is markedly improved!!! Tolerating soft diet and taking the Ensure shakes. Diet as tolerated. Would continue for now to make sure that she can get enough calories via PO route. Ok to d/c home from my standpoint. Will be available as needed. Please call with questions. Time=10min Subjective Date of service: 04/05/19 Patient Reports: Positive: feels better, tolerating a regular diet, bowel movement. Negative: nausea, vomiting Objective Vital Signs - 12hr 04/05/19 04/05/19 00:08 06:10 Temperature 98.5 F 97.7 F Pulse Rate 78 75 Respiratory 16 16 Rate Blood Pressure 98/64 116/68 O2 Sat by Pulse 92 99 Oximetry - General physical appearance no distress, no pain, other (smiling) - Eyes normal occular movement - Respiratory normal expansion, normal respiratory effort - Abdomen soft, not tender, not distended (essentially resolved), not guarding, not rigid - Labs 03/31/19 04:43 04/05/19 04:42 Diabetes panel 04/05/19 Range/Units 04:42 Sodium 136 L (137-145) mmol/L Potassium 4.6 (3.6-5.0) mmol/L Chloride 102.4 (98-107) mmol/L Carbon Dioxide 25 (22-30) mmol/L BUN 14 (7-17) mg/dL Creatinine 0.3 L (0.7-1.2) mg/dL Glucose 94 (65-100) mg/dL Calcium 9.1 (8.4-10.2) mg/dL Calcium panel 04/05/19 Range/Units 04:42 Calcium 9.1 (8.4-10.2) mg/dL Phosphorus 4.40 (2.5-4.5) mg/dL Pituitary panel 04/05/19 Range/Units 04:42 Sodium 136 L (137-145) mmol/L Potassium 4.6 (3.6-5.0) mmol/L Chloride 102.4 (98-107) mmol/L Carbon Dioxide 25 (22-30) mmol/L BUN 14 (7-17) mg/dL Creatinine 0.3 L (0.7-1.2) mg/dL Glucose 94 (65-100) mg/dL Calcium 9.1 (8.4-10.2) mg/dL Adrenal panel 04/05/19 Range/Units 04:42 Sodium 136 L (137-145) mmol/L Potassium 4.6 (3.6-5.0) mmol/L Chloride 102.4 (98-107) mmol/L Carbon Dioxide 25 (22-30) mmol/L BUN 14 (7-17) mg/dL Creatinine 0.3 L (0.7-1.2) mg/dL Glucose 94 (65-100) mg/dL Calcium 9.1 (8.4-10.2) mg/dL
[2019-04-05] MEDS: FLEET PR SCH (09:34)
[2019-04-05] MEDS: SENOKOT PO SCH ×2 (09:34→22:39)
[2019-04-05] MEDS: DIFLUCAN 200 ML IV SCH (09:53)
[2019-04-05] MEDS: FERGON PO SCH (09:53)
[2019-04-05] MEDS: SODIUM CHLORIDE FLUSH SYRINGE 10 ML IV SCH ×2 (09:54→22:39)
[2019-04-05] MEDS ORDERED: TPN ADULT 1,800 ML IV SCH (20:00)
--- NOTE | 2019-04-05 20:20 | Progress Note ---
Assessment and Plan Cultures: 03/29/2019 blood culture: Astrid albicans and MRSE 4 of 4 bottles 03/29/2019 urine culture: Astrid albicans 03/31/2019 Astrid albicans 04/03/2019 Blood culture no growth today A/P: 24-year-old female with history of chronic small bowel obstruction due to underlying intestinal dysfunction of unclear etiology, recent hospitalization for small bowel obstruction requiring exploratory laparotomy on 02/28/2019, deafness, on TPN, now admitted with: 1) Sepsis: secondary to candidemia and MRSE bacteremia, likely source is PICC line infection: Especially in the setting of TPN. s/p PICC removal. TTE no vegetations. 2) Candiduria: likely extravasation from candidemia, no urinary complaints. No pyuria. No treatment indicated. 3) Elevated LFTs: Could be from sepsis. Trend improving. Hep panel pending. 4) Leukopenia, thrombocytopenia: Possibly from sepsis, monitor. 5) Chronic intestinal dysfunction: has been on TPN. Recs: f/u recheck blood cultures continue fluconazole to change to PO 400 mg q day D4 continue IV vancomycin, target vanc trough: 10-20 mcg/ml D4 at discharge will do vancomycin IV and fluconoazole PO total 14 days from negati ve blood cultures until 04/08/2019 she needs 3 more days of IV vancomycin she has a midline which it would be enough for now. No need for PICC Dr West will be rounding tomorrow MD Jamilah [facility] O: [phone] F: [phone] Subjective Date of service: 04/05/19 Principal diagnosis: fungemia Interval history: Patient feels ok, no fever, communicating via writing notes. Objective - Exam Narrative Exam: Constitutional: Alert, cooperative. Head, Ears, Nose: Normocephalic, atraumatic. External ears, nose normal. Deafness + Eyes: Conjunctivae/corneas clear. No icterus. No ptosis. Neck: Supple, no meningeal signs Oral: no thrush Cardiovascular: RRR Respiratory: Good air entry, clear to auscultation bilaterally GI: distended but feels soft compared to yesterday, non-tender; midline surgical incision intact, bowel sounds +. No peritoneal signs Musculoskeletal: No pedal edema, no cyanosis. Skin: No rash or abscess Hem/Lymphatic: No palpable cervical or supraclavicular nodes. No lymphangitis Psych: no agitation Neurological: Awake, alert. Deaf - Constitutional Vitals: Vital Signs Temp Pulse Resp BP Pulse Ox 97.3 F L 69 18 93/58 97 04/05/19 16:30 04/05/19 16:30 04/05/19 16:30 04/05/19 16:30 04/05/19 16:30 Temperature -Last 24 Hours Temperature 97.3 F Temperature 98.1 F Temperature 97.7 F Temperature 98.5 F - Labs CBC & Chem 7: 03/31/19 04:43 04/05/19 04:42 Labs: Abnormal lab results 04/05/19 04/05/19 Range/Units 04:42 16:36 Sodium 136 L (137-145) mmol/L Creatinine 0.3 L (0.7-1.2) mg/dL Vancomycin Trough 46.5 H (5.0-20.0) ug/mL
[2019-04-05] MEDS: LOVENOX SUB-Q SCH (22:39)
[2019-04-06] MEDS: VANCOMYCIN/NS 1 GM/250 ML 1 GM/250 ML BAG IV SCH (06:12)
[2019-04-06 07:13] LABS: BUN/Creatinine Ratio 30; Blood Urea Nitrogen 12 mg/dL (7-17); Calcium 8.9 mg/dL (8.4-10.2); Hemolysis Index 2
[2019-04-06] MEDS: DIFLUCAN PO SCH (09:35)
[2019-04-06] MEDS: FERGON PO SCH (09:36)
[2019-04-06] MEDS: SENOKOT PO SCH ×2 (09:37→23:48)
[2019-04-06] MEDS: SODIUM CHLORIDE FLUSH SYRINGE 10 ML IV SCH ×2 (09:38→23:49)
[2019-04-06] MEDS: FLEET PR SCH ×2 (09:40→16:55)
--- NOTE | 2019-04-06 10:59 | Progress Note ---
Assessment and Plan Cultures: 03/29/2019 blood culture: Astrid albicans and MRSE 4 of 4 bottles 03/29/2019 urine culture: Astrid albicans 03/31/2019 blood culture: Astrid albicans 04/03/2019 Blood culture no growth thus far A/P: 24-year-old female with history of chronic small bowel obstruction due to underlying intestinal dysfunction of unclear etiology, recent hospitalization for small bowel obstruction requiring exploratory laparotomy on 02/28/2019, deafness, on TPN, now admitted with: 1) Sepsis: secondary to candidemia and MRSE bacteremia, likely source is PICC line infection: Especially in the setting of TPN. s/p PICC removal. TTE no vegetations. Repeat blood cultures positive for Astrid on 03/31/2019. Blood culture from 04/03/2019 remains negative thus far. 2) Candiduria: No treatment indicated as such, anyways patient is on Fluconazole. 3) Elevated LFTs: from sepsis. improved. Hep panel negative. 4) Leukopenia, thrombocytopenia: Possibly from sepsis, monitor. improved. 5) Chronic intestinal dysfunction: has been on TPN/PPN. Recs: For Staph epi bacteremia, PICC line was removed and patient has received 7 days of IV Vancomycin from negative blood culture (03/31/2019), so additional vancomycin is not needed. For Candidemia, complete 14 days of PO/IV Fluconazole from negative blood culture (04/03/2019) ending 04/17/2019 Of note, patient has a midline that was placed on 04/01/2019, possibly during active Candidemia, hence that will need to be removed (order placed) Since she is going home on TPN/PPN and needs a new line, cleared from ID standpoint to get a new one, order placed for a new PICC line D/W Case Management and RN. D/W Dr. Jonelle West MD [facility] [place] [facility] C: [phone] O: [phone] F: [phone] Subjective Date of service: 04/06/19 Principal diagnosis: fungemia Interval history: No fever. Appears comfortable. History limited from patient. Objective - Exam Narrative Exam: Physical Exam: Constitutional: Alert, cooperative. Head, Ears, Nose: Normocephalic, atraumatic. External ears, nose normal. Deafness + Eyes: Conjunctivae/corneas clear. No icterus. No ptosis. Neck: Supple, no meningeal signs Oral: no thrush Cardiovascular: S1, S2 normal. Respiratory: Good air entry, clear to auscultation bilaterally GI: soft, non-tender; midline surgical incision intact, bowel sounds +. No chery toneal signs Musculoskeletal: No pedal edema, no cyanosis. Left arm midline present. Skin: No rash or abscess Hem/Lymphatic: No palpable cervical or supraclavicular nodes. No lymphangitis Psych: no agitation Neurological: Awake, alert. - Constitutional Vitals: Vital Signs Temp Pulse Resp BP Pulse Ox 98.8 F 69 16 111/67 98 04/06/19 06:12 04/06/19 06:12 04/06/19 06:12 04/06/19 06:12 04/06/19 06:12 Temperature -Last 24 Hours Temperature 98.8 F Temperature 97.9 F Temperature 97.3 F Temperature 98.1 F - Labs CBC & Chem 7: 03/31/19 04:43 04/06/19 06:18 Labs: Abnormal lab results 04/05/19 04/06/19 Range/Units 16:36 06:18 Creatinine 0.4 L (0.7-1.2) mg/dL Vancomycin Trough 46.5 H (5.0-20.0) ug/mL
--- NOTE | 2019-04-06 17:55 | Progress Note ---
Assessment and Plan 24-year-old deaf female with history of chronic small bowel obstruction/intestinal dysfunction presents to ED with complaints of cough with yellow sputum production for the past 3 days and fever. The cough is intermittent but has progressively worsened over the past 3 days. Patient was seen by General surgery and her abdominal condition was chronic and no intervention needed at this time. 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 and stable - Surgery is following - Patient is on TPN and started on diet as tolerated hypokalemia replaced Severe malnutrition continue parenteral nutrition DVT prophylaxis; lovenox dispo; need IV/PO antifungals and home TPN set up prior to dc, cm aware Subjective Date of service: 04/05/19 Principal diagnosis: fungemia Interval history: Symptomatically better Objective - Constitutional Vitals: Vital Signs - 12hr 04/06/19 04/06/19 06:12 12:02 Temperature 98.8 F 98.1 F Pulse Rate 69 89 Respiratory 16 18 Rate Blood Pressure 111/67 93/59 O2 Sat by Pulse 98 97 Oximetry General appearance: Present: no acute distress, well-nourished - EENT Eyes: PERRL, EOM intact ENT: hearing intact, clear oral mucosa Ears: bilateral: normal - Neck Neck: supple, normal ROM - Respiratory Respiratory effort: normal Respiratory: bilateral: CTA - Breasts Breasts: normal - Cardiovascular Heart rate: 78 Rhythm: regular Heart Sounds: Present: S1 & S2. Absent: gallop, rub Extremities: pulses intact, No edema, normal color, Full ROM - Gastrointestinal General gastrointestinal: Present: soft, non-tender, non-distended, normal bowel sounds - Genitourinary Female genitourinary: normal - Integumentary Integumentary: clear, warm, dry - Musculoskeletal Musculoskeletal: 1, strength equal bilaterally - Neurologic Neurologic: moves all extremities - Psychiatric Psychiatric: memory intact, appropriate mood/affect, intact judgment & insight - Labs CBC & Chem 7: 03/31/19 04:43 04/07/19 06:30 Labs: Abnormal lab results 04/06/19 04/06/19 Range/Units 06:18 13:24 Creatinine 0.4 L (0.7-1.2) mg/dL Vancomycin Trough 22.5 H (5.0-20.0) ug/mL
--- NOTE | 2019-04-06 18:38 | XRay Report ---
PROCEDURE: XR CHEST 1V AP TECHNIQUE: Chest radiograph single view. HISTORY: picc line COMPARISONS: Comparison is dated March 02, 2019 . FINDINGS: PICC line appears in satisfactory position overlying the SVC and cavoatrial junction. Again noted are multiple distended bowel loops along with free intraperitoneal air which has been not ed previously. Left hemidiaphragm is elevated. No evidence for pneumothorax. IMPRESSION: PICC line in satisfactory position Continued bowel distention with free intraperitoneal air and elevation of the left hemidiaphragm This document is electronically signed by Alphonse Martínez MD., Apr 06 2019 07:36:10 PM ET
[2019-04-06] MEDS: LOVENOX SUB-Q SCH (23:48)
[2019-04-07 07:27] LABS: BUN/Creatinine Ratio 28; Blood Urea Nitrogen 11 mg/dL (7-17); Calcium 9.1 mg/dL (8.4-10.2); Hemolysis Index 2
[2019-04-07] MEDS: FLEET PR SCH (11:30)
[2019-04-07] MEDS: SENOKOT PO SCH (11:35)
[2019-04-07] MEDS: DIFLUCAN PO SCH (11:35)
[2019-04-07] MEDS: FERGON PO SCH (11:37)
[2019-04-07] MEDS: SODIUM CHLORIDE FLUSH SYRINGE 10 ML IV SCH (11:38)
[2019-04-07 12:36] VITALS: BP 111/76
--- NOTE | 2019-04-07 14:38 | Progress Note ---
Assessment and Plan 24-year-old deaf female with history of chronic small bowel obstruction/intestinal dysfunction presents to ED with complaints of cough with yellow sputum production for the past 3 days and fever. The cough is intermittent but has progressively worsened over the past 3 days. Patient was seen by General surgery and her abdominal condition was chronic and no intervention needed at this time. 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 stable - Surgery is following - Patient is on TPN and started on diet as tolerated hypokalemia replaced Severe malnutrition continue parenteral nutrition DVT prophylaxis; lovenox dispo; need IV abx and antifungals and home TPN set up prior to dc, cm aware Subjective Date of service: 04/05/19 Principal diagnosis: fungemia Interval history: Symptomatically better Objective - Constitutional Vitals: Vital Signs - 12hr 04/07/19 04/07/19 04/07/19 06:00 06:02 12:01 Temperature 98.2 F 97.2 F L Pulse Rate 92 H 107 H Respiratory 18 19 Rate Blood Pressure 104/63 111/76 O2 Sat by Pulse 98 100 Oximetry General appearance: Present: no acute distress, well-nourished - EENT Eyes: PERRL, EOM intact ENT: hearing intact, clear oral mucosa Ears: bilateral: normal - Neck Neck: supple, normal ROM - Respiratory Respiratory effort: normal Respiratory: bilateral: CTA - Breasts Breasts: normal - Cardiovascular Rhythm: regular Heart Sounds: Present: S1 & S2. Absent: gallop, rub Extremities: pulses intact, No edema, normal color, Full ROM - Gastrointestinal General gastrointestinal: Present: soft, non-tender, non-distended, normal bowel sounds - Genitourinary Female genitourinary: normal - Integumentary Integumentary: clear, warm, dry - Musculoskeletal Musculoskeletal: 1, strength equal bilaterally - Neurologic Neurologic: moves all extremities - Psychiatric Psychiatric: memory intact, appropriate mood/affect, intact judgment & insight - Labs CBC & Chem 7: 03/31/19 04:43 04/07/19 06:30 Labs: Abnormal lab results 04/07/19 Range/Units 06:30 Creatinine 0.4 L (0.7-1.2) mg/dL Phosphorus 4.90 H (2.5-4.5) mg/dL
--- NOTE | 2019-04-07 14:47 | Discharge Summary ---
Providers - Providers Date of Admission: 03/30/19 03:22 Date of discharge: 04/07/19 Attending physician: PARVIN HDZ 03/29/19 23:15 Consult to Physician [CONS] Routine Comment: Dr. Akers spoke with Dr. Bowden @ 2004 Consulting Provider: MERLY BOWDEN Physician Instructions: Reason For Exam: bowel obs 03/30/19 01:03 Consult to Dietitian/Nutrition [CONS] Routine Physician Instructions: Reason For Exam: Reason for Consult: Write/Manage TPN/PPN 03/30/19 16:18 PICC Line Placement [Consult to PICC Line RN] [CONS] Routine Reason For Exam: midline Type Line:: Midline 03/31/19 09:20 Consult to Physician [CONS] Routine Comment: Consulting Provider: PETRA HARPER Physician Instructions: Reason For Exam: candidemia 04/01/19 12:30 Midline [Consult to PICC Line RN] [CONS] Routine Reason For Exam: midline Type Line:: Midline 04/06/19 11:20 Consult to PICC Line RN [CONS] Routine Reason For Exam: PICC placement for TPN Type Line:: PICC [facility] Condition: [facility] Hospital course: 24-year-old female with history of chronic small bowel obstruction due to underlying intestinal dysfunction of unclear etiology, recent hospitalization for small bowel obstruction requiring exploratory laparotomy on 02/28/2019, deafness, on TPN, now admitted with: 1) Sepsis: secondary to candidemia and MRSE bacteremia, likely source is PICC line infection: Especially in the setting of TPN. s/p PICC removal. TTE no vegetations. Repeat blood cultures positive for Astrid on 03/31/2019. Blood culture from 04/03/2019 remains negative thus far. 2) Candiduria: No treatment indicated as such, anyways patient is on Fluconazole. 3) Elevated LFTs: from sepsis. improved. Hep panel negative.--Improved improved 4) Leukopenia, thrombocytopenia: Possibly from sepsis, monitor. improved. 5) Chronic intestinal dysfunction: has been on TPN/PPN. (6) candidemia--finished 14 days of fluconazole on 04/17/2019-prescription for 10 more days of fluconazole given Recs: For Staph epi bacteremia, PICC line was removed and patient has received 7 days of IV Vancomycin from negative blood culture (03/31/2019), so additional vancomycin is not needed. For Candidemia, complete 14 days of PO/IV Fluconazole from negative blood culture (04/03/2019) ending 04/17/2019 Of note, patient has a midline that was placed on 04/01/2019, possibly during active Candidemia, hence that will need to be removed (order placed) Patient has a new PICC line placed on 04/06/2019 Disposition: DC-01 TO HOME OR SELFCARE Core Measure Documentation - Palliative Care Palliative Care/ Comfort Measures: Not Applicable - Core Measures Any of the following diagnoses?: none Exam - Physical Exam Narrative exam: Patient is under weight and near cachectic - Constitutional Vitals: Temp Pulse Resp BP Pulse Ox 97.2 F L 107 H 19 111/76 100 04/07/19 12:01 04/07/19 12:01 04/07/19 12:01 04/07/19 12:01 04/07/19 12:01 General appearance: Present: no acute distress, well-nourished - EENT Eyes: Present: PERRL ENT: hearing intact, clear oral mucosa - Neck Neck: Present: supple, normal ROM - Respiratory Respiratory effort: normal Respiratory: bilateral: CTA - Cardiovascular Heart rate: 76 Rhythm: regular Heart Sounds: Present: S1 & S2. Absent: rub, click - Extremities Extremities: pulses symmetrical, No edema Peripheral Pulses: within normal limits - Abdominal General gastrointestinal: Present: soft, non-tender, non-distended, normal bowel sounds Female genitourinary: Present: normal - Rectal Rectal Exam: deferred - Integumentary Integumentary: Present: clear, warm, dry - Musculoskeletal Musculoskeletal: gait normal, strength equal bilaterally - Psychiatric Psychiatric: appropriate mood/affect, intact judgment & insight - Neurologic Neurologic: CNII-XII intact, moves all extremities - Allied Health Allied health notes reviewed: nursing, case management Plan Diet: regular, other (PPN as ordered) Follow up with: RADHA BAEZ MD [Primary Care Provider] - 3-5 Days PETRA HARPER MD [Staff Physician] - 7 Days
[2019-04-07] MEDS ORDERED: TRIPLE ANTIBIOTIC TP ONE (17:00)
[2019-04-07] MEDS ORDERED: TPN ADULT 1,800 ML IV SCH (20:00)
== END 2019-04-07 17:00 | disposition home or self-care (01) | DRG 314 ==
LOC: ED 14:52 → 3A 03-30 03:22
PROVIDERS: ADMIT Internal Medicine; ATTEND Internal Medicine
PROC: 02HV33Z Insertion of Infusion Device into Superior Vena Cava, Percutaneous Approach (ICD-10-PCS; principal; 2019-04-01)
PROC: 02HV33Z Insertion of Infusion Device into Superior Vena Cava, Percutaneous Approach (ICD-10-PCS; 2019-04-06)
DX: T80.211A Bloodstream infection due to central venous catheter, initial encounter (principal); B37.7 Candidal sepsis; E43 Unspecified severe protein-calorie malnutrition; A41.02 Sepsis due to Methicillin resistant Staphylococcus aureus; K59.8 Other specified functional intestinal disorders; H91.90 Unspecified hearing loss, unspecified ear; D64.9 Anemia, unspecified; E87.6 Hypokalemia; Y83.8 Other surgical procedures as the cause of abnormal reaction of the patient, or of later complication, without mention of misadventure at the time of the procedure; D72.819 Decreased white blood cell count, unspecified; D69.6 Thrombocytopenia, unspecified; J06.9 Acute upper respiratory infection, unspecified; Z68.1 Body mass index [BMI] 19.9 or less, adult; Y92.89 Other specified places as the place of occurrence of the external cause
CPT/HCPCS: 36415; 71045; 71046; 74177; 80048; 80053; 80074; 80076; 80202; 81001; 82140; 83735; 84100; 84478; 84703; 85025; 87040; 87076; 87086; 87103; 87186; 93306; G0378; A6250; J0456; J0692; J1200; J1450; J1650; J1956; J2248; J3370; J3480; J7030; J7050; Q9967

== ENCOUNTER 2019-04-12 10:58 | Outpatient (CLI) | payer MEDICAID ==
[2019-04-12 11:37] LABS: Basophils # (Auto) 0.1 K/mm3 (0.0-0.1); Basophils % (Auto) 0.7 % (0.0-1.8); Eosinophils # (Auto) 0.1 K/mm3 (0.0-0.4); Eosinophils % (Auto) 1.9 % (0.0-4.3); Hematocrit 32.4 % (30.3-42.9); Hemoglobin 10.6 gm/dl (10.1-14.3); Lymphocytes # (Auto) 1.3 K/mm3 (1.2-5.4); Lymphocytes % (Auto) 17.2 % (13.4-35.0); Mean Corpuscular HGB Conc 33 % (30-34); Mean Corpuscular Volume 88 fl (79-97); Monocytes # (Auto) 0.5 K/mm3 (0.0-0.8); Monocytes % (Auto) 6.3 % (0.0-7.3); Platelet Count 262 K/mm3 (140-440); Red Blood Count 3.68 M/mm3 (3.65-5.03)
[2019-04-12 11:43] LABS: Red Cell Distribution Width 20.8 % (13.2-15.2)
[2019-04-12 12:00] LABS: Alanine Aminotransferase 21 units/L (7-56); Albumin 3.8 g/dL (3.9-5); BUN/Creatinine Ratio 28; Blood Urea Nitrogen 14 mg/dL (7-17); Calcium 9.3 mg/dL (8.4-10.2); Hemolysis Index 4; Prealbumin 0.358 g/L (0.200-0.400)
== END 2019-04-12 10:59 | disposition home or self-care (01) ==
LOC: LAB 10:58
PROVIDERS: ATTEND Surgery
DX: K56.609 Unspecified intestinal obstruction, unspecified as to partial versus complete obstruction (principal)
CPT/HCPCS: 36415; 80053; 83735; 84100; 84134; 84478; 85025

== ENCOUNTER 2019-04-18 12:43 | Outpatient (CLI) | payer MEDICAID ==
[2019-04-18 13:30] LABS: Basophils % (Auto) 0.2 % (0.0-1.8); Eosinophils # (Auto) 0.4 K/mm3 (0.0-0.4); Eosinophils % (Auto) 7.2 % (0.0-4.3); Hemoglobin 10.8 gm/dl (10.1-14.3); Lymphocytes # (Auto) 1.6 K/mm3 (1.2-5.4); Lymphocytes % (Auto) 30.9 % (13.4-35.0); Mean Corpuscular HGB Conc 33 % (30-34); Mean Corpuscular Volume 89 fl (79-97); Monocytes # (Auto) 0.5 K/mm3 (0.0-0.8); Monocytes % (Auto) 10.5 % (0.0-7.3); Platelet Count 183 K/mm3 (140-440); Red Blood Count 3.71 M/mm3 (3.65-5.03)
[2019-04-18 13:36] LABS: Red Cell Distribution Width 20.6 % (13.2-15.2)
[2019-04-18 14:11] LABS: Alanine Aminotransferase 12 units/L (7-56); Albumin 3.8 g/dL (3.9-5); BUN/Creatinine Ratio 23; Blood Urea Nitrogen 14 mg/dL (7-17); Calcium 9.4 mg/dL (8.4-10.2); Hemolysis Index 10; Prealbumin 0.267 g/L (0.200-0.400)
== END 2019-04-18 12:44 | disposition home or self-care (01) ==
LOC: LAB 12:43
PROVIDERS: ATTEND Surgery
DX: K56.609 Unspecified intestinal obstruction, unspecified as to partial versus complete obstruction (principal); E11.9 Type 2 diabetes mellitus without complications; K21.9 Gastro-esophageal reflux disease without esophagitis; Z86.2 Personal history of diseases of the blood and blood-forming organs and certain disorders involving the immune mechanism
CPT/HCPCS: 36415; 80053; 83735; 84100; 84134; 84478; 85025

== ENCOUNTER 2019-10-19 08:53 | Observation (INO) | payer MEDICAID ==
[2019-10-19] MEDS ORDERED: SODIUM CHLORIDE 0.9% 500 ML 500 ML IV ONE ×2 (09:06→18:35)
[2019-10-19 09:39] LABS: Bacteria,Urine 1+ /HPF (Negative); Bilirubin,Urine NEG (Negative); Blood,Urine NEG (Negative); Color,Urine Amber (Yellow); Granular Casts,Urine 22 /LPF; Mucus,Urine 2+ /HPF; Urobilinogen,Urine < 2.0 mg/dL (<2.0)
[2019-10-19 09:42] LABS: HCG Qualitative,Urine Negative (Negative)
[2019-10-19 09:43] LABS: Basophils % (Auto) 0.3 % (0.0-1.8); Hematocrit 45.8 % (30.3-42.9); Hemoglobin 15.2 gm/dl (10.1-14.3); Lymphocytes # (Auto) 1.1 K/mm3 (1.2-5.4); Lymphocytes % (Auto) 13.6 % (13.4-35.0); Mean Corpuscular HGB Conc 33 % (30-34); Mean Corpuscular Volume 95 fl (79-97); Monocytes # (Auto) 0.5 K/mm3 (0.0-0.8); Monocytes % (Auto) 5.8 % (0.0-7.3); Platelet Count 161 K/mm3 (140-440); Red Blood Count 4.82 M/mm3 (3.65-5.03); Red Cell Distribution Width 14.3 % (13.2-15.2)
[2019-10-19 09:53] LABS: INR 1.12 (0.87-1.13)
[2019-10-19 09:55] LABS: Albumin 4.3 g/dL (3.9-5); Calcium 9.2 mg/dL (8.4-10.2)
[2019-10-19] MEDS ORDERED: SODIUM CHLORIDE 0.9% 1000 ML 1,000 ML IV ONE ×2 (10:12→10:30)
[2019-10-19] MEDS ORDERED: SODIUM CHLORIDE 0.9% 1000 ML IV SOLN IV ONE (10:46)
--- NOTE | 2019-10-19 10:53 | Emergency Department Report ---
ED General Adult HPI - General Chief complaint: Weakness Stated complaint: COLD SYMPTOMS Time Seen by Provider: 10/19/19 10:11 Source: patient Mode of arrival: Ambulatory Limitations: No Limitations - History of Present Illness Initial comments: 24-year-old deaf female with history of chronic small bowel obstruction due to unrelenting intestinal dysfunction of unclear etiology. She had 2-3 days of congestion,cough, dizziness and T-mas 101. -: Gradual, days(s) (2-3) Improves with: none Associated Symptoms: cough, fever/chills, malaise, other (dizziness) - Related Data Home Medications Medication Instructions Recorded Confirmed Last Taken Ibuprofen 600 mg PO Q6HRT PRN 02/17/19 03/31/19 Unknown Previous Rx's Medication Instructions Recorded Last Taken Type Bisacodyl [Dulcolax suppos] 10 mg NC Q72H PRN #10 supp.rect 01/30/19 Unknown Rx Glycerin Adult 2 gm 1 supp NC QDAY PRN #30 supp.rect 01/30/19 Unknown Rx Acetaminophen [Acetaminophen TAB] 650 mg PO Q4H PRN tablet 03/08/19 Unknown Rx Erythromycin Ethylsucc Susp 200 mg PO QID 14 Days #300 03/08/19 Unknown Rx [E.e.s. 200] oral.liqd Na Biphos/Na Phosp [Fleet] 133 ml NC QDAY #30 bottle 03/08/19 Unknown Rx Total Parenteral Nutrition [TPN 1 ml IV DAILY@2000 #30 ml 03/08/19 Unknown Rx Adult] Ferrous Gluconate [Fergon 325 MG 324 mg PO QDAY #30 tablet 04/07/19 Unknown Rx tab] Fluconazole [Diflucan TAB] 400 mg PO QDAY #10 tablet 04/07/19 Unknown Rx HYDROcodone/APAP 5-325 [[place] 1 each PO Q6H PRN #20 tablet 04/07/19 Unknown Rx 5-325 mg TAB] Allergies Allergy/AdvReac Type Severity Reaction Status Date / Time No Known Allergies Allergy Verified 02/28/19 14:23 ED Review of Systems ROS: Stated complaint: COLD SYMPTOMS Other details as noted in HPI Comment: All other systems reviewed and negative Constitutional: fever Respiratory: cough, other (congestion ) Gastrointestinal: other (chronic abdominal distentino) Neurological: weakness, other (dizziness). denies: headache, confusion ED Past Medical Hx - Past Medical History Previous Medical History?: Yes Hx Hypertension: No Hx Heart Attack/AMI: No Hx Deep Vein Thrombosis: (unknown) Hx Liver Disease: No Hx Renal Disease: No Hx Seizures: No Hx Asthma: No Hx HIV: No Additional medical history: Deaf, bowel obs r/t volvulus - Surgical History Past Surgical History?: Yes Hx Pacemaker: No Hx Internal Defibrillator: No Additional Surgical History: colostomy x 2 - Social History Smoking Status: Never Smoker Substance Use Type: None - Medications Home Medications: Home Medications Medication Instructions Recorded Confirmed Last Taken Type Bisacodyl [Dulcolax suppos] 10 mg NC Q72H PRN #10 supp.rect 01/30/19 03/31/19 Unknown Rx Glycerin Adult 2 gm 1 supp NC QDAY PRN #30 supp.rect 01/30/19 03/31/19 Unknown Rx Ibuprofen 600 mg PO Q6HRT PRN 02/17/19 03/31/19 Unknown History Acetaminophen [Acetaminophen TAB] 650 mg PO Q4H PRN tablet 03/08/19 03/31/19 Unknown Rx Erythromycin Ethylsucc Susp 200 mg PO QID 14 Days #300 03/08/19 03/31/19 Unknown Rx [E.e.s. 200] oral.liqd Na Biphos/Na Phosp [Fleet] 133 ml NC QDAY #30 bottle 03/08/19 03/31/19 Unknown Rx Total Parenteral Nutrition [TPN 1 ml IV DAILY@2000 #30 ml 03/08/19 03/31/19 Unknown Rx Adult] Ferrous Gluconate [Fergon 325 MG 324 mg PO QDAY #30 tablet 04/07/19 Unknown Rx tab] Fluconazole [Diflucan TAB] 400 mg PO QDAY #10 tablet 04/07/19 Unknown Rx HYDROcodone/APAP 5-325 [[place] 1 each PO Q6H PRN #20 tablet 04/07/19 Unknown Rx 5-325 mg TAB] ED Physical Exam - General Limitations: No Limitations General appearance: alert, in no apparent distress - Head Head exam: Present: atraumatic, normal inspection - Eye Eye exam: Present: normal appearance - ENT ENT exam: Present: normal exam, mucous membranes moist, TM's normal bilaterally - Neck Neck exam: Present: normal inspection - Respiratory Respiratory exam: Present: wheezes. Absent: respiratory distress - Cardiovascular Cardiovascular Exam: Present: regular rate, normal heart sounds - GI/Abdominal GI/Abdominal exam: Present: soft, distended, hyperactive bowel sounds. Absent: tenderness - Extremities Exam Extremities exam: Present: normal inspection, full ROM, normal capillary refill. Absent: pedal edema - Back Exam Back exam: Present: normal inspection - Neurological Exam Neurological exam: Present: alert, oriented X3 - Psychiatric Psychiatric exam: Present: normal affect - Skin Skin exam: Present: warm, dry, intact, normal color. Absent: rash, cyanosis, erythema ED Course Vital Signs 10/19/19 10/19/19 10/19/19 09:11 10:45 11:45 Temperature 98.3 F 98.7 F Pulse Rate 125 H 106 H Respiratory 22 24 Rate Blood Pressure 88/58 Blood Pressure 100/64 [Left] O2 Sat by Pulse 95 94 Oximetry 10/19/19 10/19/19 12:20 13:09 Temperature Pulse Rate 103 H 106 H Respiratory 26 H 25 H Rate Blood Pressure Blood Pressure 96/58 98/65 [Left] O2 Sat by Pulse 94 93 Oximetry - Reevaluation(s) Reevaluation #1: 10/19/19 12:18 Pt in no distress, dry cough lungs with few scattered wheezing. She has not received her albuterol neb treatment discuss with nurse to give treatment now. Dr Melchor hospitalist called to evaluate patient for admission . ED Medical Decision Making - Lab Data Result diagrams: 10/19/19 09:25 10/19/19 09:25 Lactic acid 2.7 - EKG Data Rate: tachycardia (rate 113) - EKG Data Interpretation: normal EKG - Radiology Data Radiology results: report reviewed chest xray IMPRESSION: 1. Colonic ileus. Suboptimal inspiratory effort - Medical Decision Making 24 yo female with c/o cough, temp 101, dizziness X 2 days. Pt is deaf her mother at bedside. Pt also has hx of chronic small bowel obstruction. She denies nausea, vomiting and diarrhea. Patient tachycardic SBP 90'S. SIRS protocol initiated. Latic acid 2.7, Influenza positive. Given Ceftriaxone and Azithromycin, No acute findings on chest xray. EKG nsr. Accepted by hospitalist for admission for systemic inflammatory response, renal insufficiency and metabolic acidosis. Critical care attestation.: If time is entered above; I have spent that time in minutes in the direct care of this critically ill patient, excluding procedure time. ED Disposition Clinical Impression: Systemic inflammatory response syndrome, Renal insufficiency, Metabolic acidosis Disposition: DC-09 OP ADMIT IP TO THIS HOSP Is pt being admited?: Yes Does the pt Need Aspirin: No Condition: Stable
[2019-10-19] MEDS ORDERED: ALBUTEROL 2.5 MG/3 ML NEBU IH ONE (10:55)
[2019-10-19] MEDS ORDERED: cefTRIAXone/NS 1 GM/50 ML 1 GM/50 ML BAG IV ONE (10:55)
[2019-10-19] MEDS ORDERED: SODIUM CHLORIDE 0.9% 100 ML IVPB IV SCH (11:00)
--- NOTE | 2019-10-19 11:05 | XRay Report ---
CHEST 1 VIEW 10/19/2019 9:41 AM INDICATION / CLINICAL INFORMATION: possible Sepsis. COMPARISON: Chest x-ray 04/06/2019 FINDINGS: SUPPORT DEVICES: None. HEART / MEDIASTINUM: No significant abnormality. LUNGS / PLEURA: No significant pulmonary or pleural abnormality. No pneumothorax. ADDITIONAL FINDINGS: Suboptimal inspiratory effort with marked gaseous distention of colon characteri stic for ileus IMPRESSION: 1. Colonic ileus. Suboptimal inspiratory effort Signer Name: Guero Keys MD Signed: 10/19/2019 11:00 AM Workstation Name: [id number]
--- NOTE | 2019-10-19 11:38 | Event Note ---
Date of service: 10/19/19 Face to Face: The patient is a 24-year-old female with a history of chronic ileus, chronic abdominal distention, currently on xifixan, following with General Surgeon Dr Drew Bowden Past medical history also includes fungemia, funguria, and chronic penetration. The patient is accompanied by her mother who translates for the patient. Patient having generalized weakness, cough, lightheadedness, near syncope, fever at home to 101. In the emergency room, found to be criteria for systemic inflammatory response syndrome, manifested by tachycardia, hypotension, and end organ injury, manifest by renal insufficiency, with metabolic acidosis. She is chronic painless abdominal distention, and does not endorse any abdominal pain. Her exam at this time is not suggestive of spontaneous bacterial peritonitis. Suspect viral syndrome and/or bronchitis. Influenza swab ordered, rectal temperature ordered, IV fluids ordered, Antibiotics ordered, we have recommended admission for supportive care, given abnormal vital signs, complex past medical history, metabolic acidosis and renal insufficiency. patient quite slender, 46 kg, blood pressure in the mid 90s, this is acceptable for the patient's past history. Vital Signs 10/19/19 09:11 Temperature 98.3 F Pulse Rate 125 H Respiratory 22 Rate Blood Pressure 88/58 O2 Sat by Pulse 95 Oximetry Lab Results 10/19/19 10/19/19 10/19/19 Range/Units 09:12 09:25 09:25 WBC 8.2 (4.5-11.0) K/mm3 RBC 4.82 (3.65-5.03) M/mm3 Hgb 15.2 H (10.1-14.3) gm/dl Hct 45.8 H (30.3-42.9) % MCV 95 (79-97) fl MCH 32 (28-32) pg MCHC 33 (30-34) % RDW 14.3 (13.2-15.2) % Plt Count 161 (140-440) K/mm3 Lymph % (Auto) 13.6 (13.4-35.0) % [place] % (Auto) 5.8 (0.0-7.3) % Eos % (Auto) 0.0 (0.0-4.3) % Baso % (Auto) 0.3 (0.0-1.8) % Lymph # 1.1 L (1.2-5.4) K/mm3 [place] # 0.5 (0.0-0.8) K/mm3 Eos # 0.0 (0.0-0.4) K/mm3 Baso # 0.0 (0.0-0.1) K/mm3 Seg Neutrophils % 80.3 H (40.0-70.0) % Seg Neutrophils # 6.6 (1.8-7.7) K/mm3 PT 14.6 (12.2-14.9) Sec. INR 1.12 (0.87-1.13) VBG pH (7.320-7.420) Sodium (137-145) mmol/L Potassium (3.6-5.0) mmol/L Chloride (98-107) mmol/L Carbon Dioxide (22-30) mmol/L Anion Gap mmol/L BUN (7-17) mg/dL Creatinine (0.7-1.2) mg/dL Estimated GFR ml/min BUN/Creatinine Ratio % Glucose (65-100) mg/dL Lactic Acid (0.7-2.0) mmol/L Calcium (8.4-10.2) mg/dL Total Bilirubin (0.1-1.2) mg/dL AST (5-40) units/L ALT (7-56) units/L Alkaline Phosphatase (35-129) units/L Total Protein (6.3-8.2) g/dL Albumin (3.9-5) g/dL Albumin/Globulin Ratio % Urine Color [place] (Yellow) Urine Turbidity Slightly-cloudy (Clear) Urine pH 5.0 (5.0-7.0) Ur Specific [place] 1.026 (1.003-1.030) Urine Protein 100 mg/dl (Negative) mg/dL Urine Glucose (UA) Neg (Negative) mg/dL Urine Ketones Tr (Negative) mg/dL Urine Blood Neg (Negative) Urine Nitrite Neg (Negative) Urine Bilirubin Neg (Negative) Urine Urobilinogen < 2.0 (<2.0) mg/dL Ur Leukocyte Esterase Neg (Negative) Urine WBC (Auto) 6.0 (0.0-6.0) /HPF Urine RBC (Auto) 11.0 (0.0-6.0) /HPF U Epithel Cells (Auto) 2.0 (0-13.0) /HPF Urine Bacteria (Auto) 1+ (Negative) /HPF Granular Casts 22 /LPF Urine Mucus 2+ /HPF Urine HCG, Qual Negative (Negative) 10/19/19 10/19/19 10/19/19 Range/Units 09:25 09:25 09:25 WBC (4.5-11.0) K/mm3 RBC (3.65-5.03) M/mm3 Hgb (10.1-14.3) gm/dl Hct (30.3-42.9) % MCV (79-97) fl MCH (28-32) pg MCHC (30-34) % RDW (13.2-15.2) % Plt Count (140-440) K/mm3 Lymph % (Auto) (13.4-35.0) % [place] % (Auto) (0.0-7.3) % Eos % (Auto) (0.0-4.3) % Baso % (Auto) (0.0-1.8) % Lymph # (1.2-5.4) K/mm3 [place] # (0.0-0.8) K/mm3 Eos # (0.0-0.4) K/mm3 Baso # (0.0-0.1) K/mm3 Seg Neutrophils % (40.0-70.0) % Seg Neutrophils # (1.8-7.7) K/mm3 PT (12.2-14.9) Sec. INR (0.87-1.13) VBG pH 7.396 (7.320-7.420) Sodium 135 L (137-145) mmol/L Potassium 3.7 (3.6-5.0) mmol/L Chloride 96.9 L (98-107) mmol/L Carbon Dioxide 17 L (22-30) mmol/L Anion Gap 25 mmol/L BUN 27 H (7-17) mg/dL Creatinine 1.5 H (0.7-1.2) mg/dL Estimated GFR 51 ml/min BUN/Creatinine Ratio 18 % Glucose 127 H (65-100) mg/dL Lactic Acid 2.80 H* (0.7-2.0) mmol/L Calcium 9.2 (8.4-10.2) mg/dL Total Bilirubin 0.70 (0.1-1.2) mg/dL AST 41 H (5-40) units/L ALT 26 (7-56) units/L Alkaline Phosphatase 79 (35-129) units/L Total Protein 8.5 H (6.3-8.2) g/dL Albumin 4.3 (3.9-5) g/dL Albumin/Globulin Ratio 1.0 % Urine Color (Yellow) Urine Turbidity (Clear) Urine pH (5.0-7.0) Ur Specific [place] (1.003-1.030) Urine Protein (Negative) mg/dL Urine Glucose (UA) (Negative) mg/dL Urine Ketones (Negative) mg/dL Urine Blood (Negative) Urine Nitrite (Negative) Urine Bilirubin (Negative) Urine Urobilinogen (<2.0) mg/dL Ur Leukocyte Esterase (Negative) Urine WBC (Auto) (0.0-6.0) /HPF Urine RBC (Auto) (0.0-6.0) /HPF U Epithel Cells (Auto) (0-13.0) /HPF Urine Bacteria (Auto) (Negative) /HPF Granular Casts /LPF Urine Mucus /HPF Urine HCG, Qual (Negative) 10/19/ Range/Units 10:16 WBC (4.5-11.0) K/mm3 RBC (3.65-5.03) M/mm3 Hgb (10.1-14.3) gm/dl Hct (30.3-42.9) % MCV (79-97) fl MCH (28-32) pg MCHC (30-34) % RDW (13.2-15.2) % Plt Count (140-440) K/mm3 Lymph % (Auto) (13.4-35.0) % [place] % (Auto) (0.0-7.3) % Eos % (Auto) (0.0-4.3) % Baso % (Auto) (0.0-1.8) % Lymph # (1.2-5.4) K/mm3 [place] # (0.0-0.8) K/mm3 Eos # (0.0-0.4) K/mm3 Baso # (0.0-0.1) K/mm3 Seg Neutrophils % (40.0-70.0) % Seg Neutrophils # (1.8-7.7) K/mm3 PT (12.2-14.9) Sec. INR (0.87-1.13) VBG pH (7.320-7.420) Sodium (137-145) mmol/L Potassium (3.6-5.0) mmol/L Chloride (98-107) mmol/L Carbon Dioxide (22-30) mmol/L Anion Gap mmol/L BUN (7-17) mg/dL Creatinine (0.7-1.2) mg/dL Estimated GFR ml/min BUN/Creatinine Ratio % Glucose (65-100) mg/dL Lactic Acid 2.70 H* (0.7-2.0) mmol/L Calcium (8.4-10.2) mg/dL Total Bilirubin (0.1-1.2) mg/dL AST (5-40) units/L ALT (7-56) units/L Alkaline Phosphatase (35-129) units/L Total Protein (6.3-8.2) g/dL Albumin (3.9-5) g/dL Albumin/Globulin Ratio % Urine Color (Yellow) Urine Turbidity (Clear) Urine pH (5.0-7.0) Ur Specific [place] (1.003-1.030) Urine Protein (Negative) mg/dL Urine Glucose (UA) (Negative) mg/dL Urine Ketones (Negative) mg/dL Urine Blood (Negative) Urine Nitrite (Negative) Urine Bilirubin (Negative) Urine Urobilinogen (<2.0) mg/dL Ur Leukocyte Esterase (Negative) Urine WBC (Auto) (0.0-6.0) /HPF Urine RBC (Auto) (0.0-6.0) /HPF U Epithel Cells (Auto) (0-13.0) /HPF Urine Bacteria (Auto) (Negative) /HPF Granular Casts /LPF Urine Mucus /HPF Urine HCG, Qual (Negative)
[2019-10-19] MEDS ORDERED: ACETAMINOPHEN 325 MG TAB PO PRN (12:19)
[2019-10-19] MEDS ORDERED: ALBUTEROL 2.5 MG/3 ML NEBU IH PRN (12:19)
[2019-10-19] MEDS ORDERED: ONDANSETRON 4 MG/2 ML INJ IV PRN (12:19)
[2019-10-19] MEDS ORDERED: HYDROcodone/ACETAMINOPHEN 5-325 MG TAB PO PRN (12:21)
[2019-10-19] MEDS ORDERED: GLYCERIN ADULT 2 GRAM RECT SUPP PR PRN (12:21)
--- NOTE | 2019-10-19 12:23 | History and Physical Report ---
History of Present Illness Chief complaint: She's been feeling sick, coughing, sneezing History of present illness: 24 YO Female with Severe Malnutrition, Chronic Bowel Obstruction, Severe Malnutrition, Deaf presents to ED for evaluation. Pt is deaf and unable to provide detailed history. Pt history provided by mother who is at bedside during exam and interview. As per mother, the patient has reported nasal congestion, nonproductive cough, dizziness, and generalized weakness over the past 3 days with persistently worsening symptoms over the past 1 day. Pt also reports fever to 101. Pt transported to [facility] via private vehicle. Pt seen and evaluated in ED and found to be in distress. Pt diaphoretic, calmmy skin, with nonproductive cough. Pt found to be hypotensive with Systolic BP of 88. Pt found to have SIRS, Influenza A, CARLOS, and Acidosis. Pt admitted to medical floor and initiated on Tamiflu. No reports of CP, Palpitations, Trauma, BRBPR, Skin Rash, or known ill contacts. Prior admission on 01/21/19 reviewed. All medication listed at time of admission has been reconciled. Past History Past Medical History: other (see HPI) Past Surgical History: bowel surgery Social history: single, lives with family. denies: smoking, alcohol abuse, prescription drug abuse Family history: no significant family history (reviewed) Medications and Allergies Allergies Allergy/AdvReac Type Severity Reaction Status Date / Time No Known Allergies Allergy Verified 02/28/19 14:23 Home Medications Medication Instructions Recorded Confirmed Last Taken Type Bisacodyl [Dulcolax suppos] 10 mg [place] Q72H PRN #10 supp.rect 01/30/19 03/31/19 Unknown Rx Glycerin Adult 2 gm 1 supp [place] QDAY PRN #30 supp.rect 01/30/19 03/31/19 Unknown Rx Ibuprofen 600 mg PO Q6HRT PRN 02/17/19 03/31/19 Unknown History Acetaminophen [Acetaminophen TAB] 650 mg PO Q4H PRN tablet 03/08/19 03/31/19 Unknown Rx Erythromycin Ethylsucc Susp 200 mg PO QID 14 Days #300 03/08/19 03/31/19 Unknown Rx [E.e.s. 200] oral.liqd Na Biphos/Na Phosp [Fleet] 133 ml [place] QDAY #30 bottle 03/08/19 03/31/19 Unknown Rx Total Parenteral Nutrition [TPN 1 ml IV DAILY@1999 #30 ml 03/08/19 03/31/19 Unknown Rx Adult] Ferrous Gluconate [Fergon 325 MG 324 mg PO QDAY #30 tablet 04/07/19 Unknown Rx tab] Fluconazole [Diflucan TAB] 400 mg PO QDAY #10 tablet 04/07/19 Unknown Rx HYDROcodone/APAP 5-325 [[place] 1 each PO Q6H PRN #20 tablet 04/07/19 Unknown Rx 5-325 mg TAB] Active Meds: Active Medications Acetaminophen (Tylenol) 650 mg PO Q4H PRN PRN Reason: Pain MILD(1-3)/Fever >100.5/GUAMAN Acetaminophen (Tylenol) 650 mg PO Q4H PRN PRN Reason: Pain, Mild (1-3) Acetaminophen/Hydrocodone Bitart ([place] 5/325) 1 each PO Q6H PRN PRN Reason: Pain, Moderate (4-6) Albuterol (Proventil) 2.5 mg IH Q4HRT PRN PRN Reason: Shortness Of Breath Bisacodyl (Dulcolax) 10 mg [place] Q72H PRN PRN Reason: Constipation Erythromycin Ethylsuccinate (E.E.S. 200) 200 mg PO QID FEDERICA Ferrous Gluconate (Fergon) 324 mg PO QDAY FED[place]ICA Glycerin (Glycerin Adult 2 Gm) 1 supp [place] QDAY PRN PRN Reason: Constipation Sodium Chloride (Nacl 0.9% 1000 Ml) 1,000 mls @ 125 mls/hr IV DIRECT FEDERICA Miscellaneous Medication (Total Parenteral Nutrition [Tpn Adult]) 1 ml IV DAILY@1999 [facility] Ondansetron HCl (Zofran) 4 mg IV Q8H PRN PRN Reason: Nausea And Vomiting Sodium Biphosphate/Sodium Phosphate (Fleet) 133 ml [place] QDAY [place]ICA Sodium Chloride (Sodium Chloride Flush Syringe 10 Ml) 10 ml IV BID [place]ICA Sodium Chloride (Sodium Chloride Flush Syringe 10 Ml) 10 ml IV PRN PRN PRN Reason: LINE FLUSH Review of Systems ROS unobtainable: due to mental status Exam - Constitutional Vitals: Temp Pulse Resp BP Pulse Ox 98.3 F 125 H 22 88/58 95 10/19/19 09:11 10/19/19 09:11 10/19/19 09:11 10/19/19 09:11 10/19/19 09:11 General appearance: Present: mild distress, cachectic - EENT Eyes: Present: PERRL ENT: hearing intact, clear oral mucosa - Neck Neck: Present: supple, normal ROM - Respiratory Respiratory effort: normal Respiratory: bilateral: diminished, rhonchi - Cardiovascular Heart Sounds: Present: S1 & S2. Absent: rub, click - Extremities Extremities: pulses symmetrical, No edema Peripheral Pulses: within normal limits - Abdominal General gastrointestinal: Present: soft, non-tender, distended, normal bowel sounds. Absent: hepatomegaly, splenomegaly Female genitourinary: Present: normal - Integumentary Integumentary: Present: clear, warm, dry - Musculoskeletal Musculoskeletal: gait normal, strength equal bilaterally - Psychiatric Psychiatric: appropriate mood/affect, intact judgment & insight - Neurologic Neurologic: CNII-XII intact, moves all extremities Results - Labs CBC & Chem 7: 10/19/19 09:25 10/19/19 09:25 Labs: Abnormal lab results 10/19/19 10/19/19 10/19/19 Range/Units 09:25 09:25 09:25 Hgb 15.2 H (10.1-14.3) gm/dl Hct 45.8 H (30.3-42.9) % Lymph # 1.1 L (1.2-5.4) K/mm3 Seg Neutrophils % 80.3 H (40.0-70.0) % Sodium 135 L (137-145) mmol/L Chloride 96.9 L (98-107) mmol/L Carbon Dioxide 17 L (22-30) mmol/L BUN 27 H (7-17) mg/dL Creatinine 1.5 H (0.7-1.2) mg/dL Glucose 127 H (65-100) mg/dL Lactic Acid 2.80 H* (0.7-2.0) mmol/L AST 41 H (5-40) units/L Total Protein 8.5 H (6.3-8.2) g/dL 10/19/19 Range/Units 10:16 Hgb (10.1-14.3) gm/dl Hct (30.3-42.9) % Lymph # (1.2-5.4) K/mm3 Seg Neutrophils % (40.0-70.0) % Sodium (137-145) mmol/L Chloride (98-107) mmol/L Carbon Dioxide (22-30) mmol/L BUN (7-17) mg/dL Creatinine (0.7-1.2) mg/dL Glucose (65-100) mg/dL Lactic Acid 2.70 H* (0.7-2.0) mmol/L AST (5-40) units/L Total Protein (6.3-8.2) g/dL Assessment and Plan - Patient Problems (1) SIRS (systemic inflammatory response syndrome) Current Visit: Yes Status: Acute Plan to address problem: Empiric IV antibiotic therapy in ED, CBC, CMP, Influenza antigen, Chest x ray, urinalysis, blood cultures, IVF resuscitation therapy. (2) Influenza A Current Visit: Yes Status: Acute Plan to address problem: Tamiflu 75mg BID x 5 days, droplet precautions, CBC, CMP, Chest X ray, (3) Ileus Current Visit: Yes Status: Chronic Plan to address problem: Serial abdominal exam, abdominal x ray, serial lactic acid. Pt mother acknowledges flatus and bowel movement today. (4) Acidosis Current Visit: Yes Status: Acute Plan to address problem: IVF resuscitation therapy, IV bicarbonate therapy. (5) CARLOS (acute kidney injury) Current Visit: Yes Status: Acute Plan to address problem: IVF resuscitation therapy, monitor uop q shift, repeat bmp in am S/P IVF resuscitation. (6) DVT prophylaxis Current Visit: Yes Status: Acute Plan to address problem: SCD to BLE while id bed, Pt ambulatory
[2019-10-19] MEDS ORDERED: SODIUM BICARB 8.4% 50 MEQ/50 ML SYRINGE IV ONE (13:00)
[2019-10-19] MEDS: SODIUM CHLORIDE 0.9% 1000 ML 1,000 ML IV SCH (15:19)
--- NOTE | 2019-10-19 17:02 | XRay Report ---
ABDOMEN 1 VIEW(S) INDICATION / CLINICAL INFORMATION: abd. distension. COMPARISON: CT abdomen and pelvis 03/29/2019. FINDINGS: TUBES / LINES: None. BOWEL GAS PATTERN: Prominent diffuse bowel distention. Findings are similar to the previous exam. ADDITIONAL FINDINGS: No significant additional findings. IMPRESSION: Prominent diffuse bowel distention. Air is seen at the level of the rectum. Ileus is favo red over distal obstruction. Signer Name: Andrew Cueva MD Signed: 10/19/2019 4:58 PM Workstation Name: [id number]
[2019-10-19] MEDS: ERYTHROMYCIN ETHYLSUCC SUSP 400 MG/10 ML ORAL LIQD PO SCH ×3 (17:31→22:49)
[2019-10-19] MEDS: HYDROcodone/HOMATROPINE 5-1.5MG /5 ML ORAL LIQD UNIT DOSE PO PRN (17:32)
[2019-10-19] MEDS: OSELTAMIVIR 75 MG CAP PO SCH ×2 (17:33→22:48)
--- NOTE | 2019-10-19 19:48 | Cat Scan Report ---
CT BRAIN: 10/19/2019 INDICATION / CLINICAL INFORMATION: dizziness. COMPARISON: None available. FINDINGS: BRAIN/INTRACRANIAL STRUCTURES: Unenhanced CT images of the brain were obtained. 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 This o bscures evaluation of some portion of the left parietal lobe. Overall, there is no gross evidence of acute abnormality. Ventricles and sulci are normal in size and shape. There is no evidence of hemorrhage or mass. There are no abnormal extra-axial fluid collectio ns. EXTRACRANIAL STRUCTURES: Unremarkable. IMPRESSION: No acute abnormality. Patient is noted to have a left-sided cochlear implant device. All CT scans at this location are performed using dose reduction to ALARA by means of automated expos ure control. Signer Name: Bal Bonilla MD Signed: 10/19/2019 7:43 PM Workstation Name: [id number]
[2019-10-19] MEDS ORDERED: TOTAL PARENTERAL NUTRITION IV SCH (20:00)
[2019-10-20] MEDS: SODIUM CHLORIDE 0.9% 1000 ML 1,000 ML IV SCH ×2 (03:21→22:22)
[2019-10-20] MEDS: HYDROcodone/HOMATROPINE 5-1.5MG /5 ML ORAL LIQD UNIT DOSE PO PRN ×3 (03:22→16:55)
[2019-10-20 05:04] LABS: Basophils % (Auto) 0.3 % (0.0-1.8); Eosinophils % (Auto) 0.1 % (0.0-4.3); Hematocrit 36.8 % (30.3-42.9); Hemoglobin 12.4 gm/dl (10.1-14.3); Lymphocytes # (Auto) 0.7 K/mm3 (1.2-5.4); Lymphocytes % (Auto) 15.2 % (13.4-35.0); Mean Corpuscular HGB Conc 34 % (30-34); Mean Corpuscular Volume 93 fl (79-97); Monocytes # (Auto) 0.4 K/mm3 (0.0-0.8); Monocytes % (Auto) 8.2 % (0.0-7.3); Platelet Count 146 K/mm3 (140-440); Red Blood Count 3.95 M/mm3 (3.65-5.03); Red Cell Distribution Width 14.3 % (13.2-15.2)
[2019-10-20 05:31] LABS: Alanine Aminotransferase 19 units/L (7-56); Albumin 3.6 g/dL (3.9-5); BUN/Creatinine Ratio 26; Blood Urea Nitrogen 18 mg/dL (7-17); Calcium 8.5 mg/dL (8.4-10.2); Hemolysis Index 4
[2019-10-20] MEDS: OSELTAMIVIR 75 MG CAP PO SCH ×2 (09:46→22:12)
[2019-10-20] MEDS: FLEET ENEMA PR SCH (09:49)
[2019-10-20] MEDS ORDERED: POTASSIUM CHLORIDE ER 20 MEQ TAB PO ONE (09:57)
[2019-10-20] MEDS ORDERED: SODIUM CHLORIDE 0.9% 1000 ML 2,000 ML IV ONE (10:41)
--- NOTE | 2019-10-20 10:44 | Progress Note ---
Assessment and Plan Assessment and plan: 24 YO Female with Severe Malnutrition, Chronic Bowel Obstruction, Severe Malnutrition, Deaf presents to ED for evaluation. Pt is deaf and unable to provide detailed history. Pt history provided by mother who is at bedside during exam and interview. As per mother, the patient has reported nasal congestion, nonproductive cough, dizziness, and generalized weakness over the past 3 days with persistently worsening symptoms over the past 1 day. Pt also reports fever to 101. Pt transported to [facility] via private vehicle. Pt seen and evaluated in ED and found to be in distress. Pt diaphoretic, calmmy skin, with nonproductive cough. * Pt found to be hypotensive with Systolic BP of 88. Pt found to have SIRS, I nfluenza A, CARLOS, and Acidosis. * Pt admitted to medical floor and initiated on Tamiflu. No reports of CP, Palpitations, Trauma, BRBPR, Skin Rash, or known ill contacts. * Prior admission on 01/21/19 reviewed. All medication listed at time of admission has been reconciled. (1) SIRS (systemic inflammatory response syndrome) Current Visit: Yes Status: Acute Plan to address problem: Empiric IV antibiotic therapy in ED, CBC, CMP, Influenza antigen, urinalysis, blood cultures, IVF resuscitation therapy. (2) Influenza B Current Visit: Yes Status: Acute Plan to address problem: Tamiflu 75mg BID x 5 days, droplet precautions, CBC, CMP (3) Hypotesnion Reviewed patient's past records patient's blood pressure stays on the low side her current state is still way below her baseline we'll give 2 additional liter of fluid and reevaluate in a.m. for possible discharge. (4) Acidosis Current Visit: Yes Status: Acute Plan to address problem: IVF resuscitation therapy, IV bicarbonate therapy. (5) CARLOS (acute kidney injury) secondary to vasomotor nephropathy Current Visit: Yes Status: Acute Plan to address problem: IVF resuscitation therapy, monitor uop q shift, repeat bmp in am S/P IVF resusc itation. (6) Ileus-Chronic Ileus: Abdomen X ray repeated: No significant changes when compared to previous exam. Unchanged Ileus. Pt acknowledges flatus and bowel movement today. Pt denies pain. Current Visit: Yes Status: Chronic Plan to address problem: Serial abdominal exam, abdominal x ray, serial lactic acid. Pt mother acknowledges flatus and bowel movement today. Abdomen is solft (7) DVT prophylaxis Current Visit: Yes Status: Acute Plan to address problem: SCD to BLE while id bed, Pt ambulatory History Interval history: Patient is examined today remains in no acute distress although still with persistent cough mildly productive clear phlegm. Still some discomfort with the chest. Otherwise no abdominal discomfort. She is moving her bowels S abdomen is soft. Hospitalist Physical - Physical exam Narrative exam: VITAL SIGNS: Reviewed. GENERAL: The patient appears normally developed, Vital signs as documented. HEAD: No signs of head trauma. EYES: Pupils are equal. Extraocular motions intact. EARS: Hearing grossly intact. MOUTH: Oropharynx is normal. NECK: No adenopathy, no JVD. CHEST: Chest with crackles breath sounds bilaterally. No wheezes, CARDIAC: Regular rate and rhythm. S1 and S2, without murmurs, gallops, or rubs. VASCULAR: No Edema. Peripheral pulses normal and equal in all extremities. ABDOMEN: Soft, non tender, distended. No rebound or guarding, and no masses palpated. Bowel Sounds normal. MUSCULOSKELETAL: Good range of motion of all major joints. Extremities without clubbing, cyanosis or edema. NEUROLOGIC EXAM: Alert and oriented x 3 No focal sensory or strength deficits. Patient has hearing speech challenges. Follows commands. PSYCHIATRIC: Mood normal. SKIN: detail exam as documented in skin assessment - Constitutional Vitals: Temp Pulse Resp BP Pulse Ox 98.3 F 100 H 16 98/62 95 10/20/19 05:14 10/20/19 05:14 10/20/19 05:14 10/20/19 05:14 10/20/19 05:14 General appearance: Present: mild distress, cachectic Results - Labs CBC & Chem 7: 10/20/19 04:25 10/20/19 04:25 Labs: Laboratory Last Values WBC 4.4 K/mm3 (4.5-11.0) L 10/20/19 04:25 RBC 3.95 M/mm3 (3.65-5.03) 10/20/19 04:25 Hgb 12.4 gm/dl (10.1-14.3) 10/20/19 04:25 Hct 36.8 % (30.3-42.9) D 10/20/19 04:25 MCV 93 fl (79-97) 10/20/19 04:25 MCH 31 pg (28-32) 10/20/19 04:25 MCHC 34 % (30-34) 10/20/19 04:25 RDW 14.3 % (13.2-15.2) 10/20/19 04:25 Plt Count 146 K/mm3 (140-440) 10/20/19 04:25 Lymph % (Auto) 15.2 % (13.4-35.0) 10/20/19 04:25 [place] % (Auto) 8.2 % (0.0-7.3) H 10/20/19 04:25 Eos % (Auto) 0.1 % (0.0-4.3) 10/20/19 04:25 Baso % (Auto) 0.3 % (0.0-1.8) 10/20/19 04:25 Lymph # 0.7 K/mm3 (1.2-5.4) L 10/20/19 04:25 [place] # 0.4 K/mm3 (0.0-0.8) 10/20/19 04:25 Eos # 0.0 K/mm3 (0.0-0.4) 10/20/19 04:25 Baso # 0.0 K/mm3 (0.0-0.1) 10/20/19 04:25 Seg Neutrophils % 76.2 % (40.0-70.0) H 10/20/19 04:25 Seg Neutrophils # 3.3 K/mm3 (1.8-7.7) 10/20/19 04:25 PT 14.6 Sec. (12.2-14.9) 10/19/19 09:25 INR 1.12 (0.87-1.13) 10/19/19 09:25 VBG pH 7.396 (7.320-7.420) 10/19/19 09:25 Sodium 143 mmol/L (137-145) D 10/20/19 04:25 Potassium 3.4 mmol/L (3.6-5.0) L 10/20/19 04:25 Chloride 107.6 mmol/L (98-107) H 10/20/19 04:25 Carbon Dioxide 21 mmol/L (22-30) L 10/20/19 04:25 Anion Gap 18 mmol/L 10/20/19 04:25 BUN 18 mg/dL (7-17) H 10/20/19 04:25 Creatinine 0.7 mg/dL (0.7-1.2) D 10/20/19 04:25 Estimated GFR > 60 ml/min 10/20/19 04:25 BUN/Creatinine Ratio 26 % 10/20/19 04:25 Glucose 113 mg/dL (65-100) H 10/20/19 04:25 POC Glucose 98 (70-105) 10/19/19 16:59 Lactic Acid 1.70 mmol/L (0.7-2.0) 10/19/19 13:47 Calcium 8.5 mg/dL (8.4-10.2) 10/20/19 04:25 Magnesium 2.30 mg/dL (1.7-2.3) 10/19/19 09:25 Total Bilirubin 0.50 mg/dL (0.1-1.2) 10/20/19 04:25 AST 34 units/L (5-40) 10/20/19 04:25 ALT 19 units/L (7-56) 10/20/19 04:25 Alkaline Phosphatase 59 units/L (35-129) 10/20/19 04:25 Ammonia 92.0 umol/L (25-60) H 10/19/19 11:26 Total Creatine Kinase 129 units/L (30-135) 10/19/19 09:25 Total Protein 7.2 g/dL (6.3-8.2) 10/20/19 04:25 Albumin 3.6 g/dL (3.9-5) L 10/20/19 04:25 Albumin/Globulin Ratio 1.0 % 10/20/19 04:25 Urine Color [place] (Yellow) 10/19/19 09:12 Urine Turbidity Slightly-cloudy (Clear) 10/19/19 09:12 Urine pH 5.0 (5.0-7.0) 10/19/19 09:12 Ur Specific [place] 1.026 (1.003-1.030) 10/19/19 09:12 Urine Protein 100 mg/dl mg/dL (Negative) 10/19/19 09:12 Urine Glucose (UA) Neg mg/dL (Negative) 10/19/19 09:12 Urine Ketones Tr mg/dL (Negative) 10/19/19 09:12 Urine Blood Neg (Negative) 10/19/19 09:12 Urine Nitrite Neg (Negative) 10/19/19 09:12 Urine Bilirubin Neg (Negative) 10/19/19 09:12 Urine Urobilinogen < 2.0 mg/dL (<2.0) 10/19/19 09:12 Ur Leukocyte Esterase Neg (Negative) 10/19/19 09:12 Urine WBC (Auto) 6.0 /HPF (0.0-6.0) 10/19/19 09:12 Urine RBC (Auto) 11.0 /HPF (0.0-6.0) 10/19/19 09:12 U Epithel Cells (Auto) 2.0 /HPF (0-13.0) 10/19/19 09:12 Urine Bacteria (Auto) 1+ /HPF (Negative) 10/19/19 09:12 Granular Casts 22 /LPF 10/19/19 09:12 Urine Mucus 2+ /HPF 10/19/19 09:12 Urine HCG, Qual Negative (Negative) 10/19/19 09:12 Influenza A (Rapid) Negative (Negative) 10/19/19 12:55 Influenza B (Rapid) Positive (Negative) A 10/19/19 12:55 Active Medications - Current Medications Current Medications: Generic Name Dose Route Start Last Admin Trade Name Freq PRN Reason Stop Dose Admin Acetaminophen 650 mg 10/19/19 12:21 Tylenol PO Q4H PRN Pain, Mild (1-3) Acetaminophen/Hydrocodone Bitart 1 each 10/19/19 12:21 [place] 5/325 PO Q6H PRN Pain, Moderate (4-6) Albuterol 2.5 mg 10/19/19 12:19 Proventil IH Q4HRT PRN Shortness Of Breath Bisacodyl 10 mg 10/19/19 12:21 Dulcolax AR Q72H PRN Constipation Erythromycin Ethylsuccinate 200 mg 10/19/19 14:00 10/19/19 22:49 E.E.S. 200 PO 200 mg QID FEDERICA Administration Ferrous Gluconate 324 mg 10/20/19 10:00 Fergon PO QDAY FEDERICA Glycerin 1 supp 10/19/19 12:21 Glycerin Adult 2 Gm AR QDAY PRN Constipation Hydrocodone Bit/Homatropine Methylb 10 ml 10/19/19 12:59 10/20/19 09:46 Hydromet PO 10 ml Q6H PRN Administration Cough Sodium Chloride 1,000 mls @ 125 mls/hr 10/19/19 12:30 10/20/19 03:21 Nacl 0.9% 1000 Ml IV 125 mls/hr DIRECT FEDERICA Administration Sodium Chloride 2,000 mls @ 999 mls/hr 10/20/19 10:41 Nacl 0.9% 1000 Ml IV 10/20/19 12:41 BOLUS ONE Ondansetron HCl 4 mg 10/19/19 12:19 Zofran IV Q8H PRN Nausea And Vomiting Oseltamivir Phosphate 75 mg 10/19/19 15:00 10/20/19 09:46 Tamiflu PO 10/23/19 22:01 75 mg BID FEDERICA Administration Sodium Biphosphate/Sodium Phosphate 133 ml 10/20/19 10:00 10/20/19 09:49 Fleet AR 133 ml QDAY FEDERICA Administration Sodium Chloride 10 ml 10/19/19 22:00 10/20/19 09:51 Sodium Chloride Flush Syringe 10 Ml IV 10 ml BID FEDERICA Administration Sodium Chloride 10 ml 10/19/19 12:19 Sodium Chloride Flush Syringe 10 Ml IV PRN PRN LINE FLUSH
[2019-10-20] MEDS: ERYTHROMYCIN ETHYLSUCC SUSP 400 MG/10 ML ORAL LIQD PO SCH ×5 (12:58→22:13)
[2019-10-20] MEDS: FERROUS GLUCONATE 324 MG TAB PO SCH (14:56)
[2019-10-20] MEDS: ACETAMINOPHEN 325 MG TAB PO PRN ×2 (16:58→20:11)
[2019-10-21] MEDS: SODIUM CHLORIDE 0.9% 1000 ML 1,000 ML IV SCH (05:02)
[2019-10-21 08:47] LABS: BUN/Creatinine Ratio 13; Blood Urea Nitrogen 8 mg/dL (7-17); Calcium 7.7 mg/dL (8.4-10.2); Hemolysis Index 18
[2019-10-21] MEDS ORDERED: SODIUM BICARB 8.4% 50 MEQ/50 ML SYRINGE IV ONE (09:02)
--- NOTE | 2019-10-21 09:05 | Discharge Summary ---
Providers - Providers Date of Admission: 10/19/19 12:19 Attending physician: NINA DUGAN MD 10/19/19 14:33 Consult to Dietitian/Nutrition [CONS] Routine Physician Instructions: Reason For Exam: Reason for Consult: Poor oral intake Primary care physician: [employer] Hospitalization Reason for admission: FLU Condition: Stable Hospital course: 24 YO Female with Severe Malnutrition, Chronic Bowel Obstruction, Severe Malnutrition, Deaf presents to ED for evaluation. Pt is deaf and unable to provide detailed history. Pt history provided by mother who is at bedside during exam and interview. As per mother, the patient has reported nasal congestion, nonproductive cough, dizziness, and generalized weakness over the past 3 days w ith persistently worsening symptoms over the past 1 day. Pt also reports fever to 101. Pt transported to [facility] via private vehicle. Pt seen and evaluated in ED and found to be in distress. Pt diaphoretic, calmmy skin, with nonproductive cough. * Pt found to be hypotensive with Systolic BP of 88. Pt found to have SIRS, Influenza A, CARLOS, and Acidosis. * Pt admitted to medical floor and initiated on Tamiflu. No reports of CP, Palpitations, Trauma, BRBPR, Skin Rash, or known ill contacts. * Prior admission on 01/21/19 reviewed. All medication listed at time of admission has been reconciled. * Stays stable, tolerating diet and moving her bowel including Gas. * Complete tamiflu treatment * ADVISED ON FEVER MANAGEMENT AND PRECAUTIONS ON DISCHARGE (1) SIRS (systemic inflammatory response syndrome) (2) Influenza B (3) Hypotesnion (4) Metabolic Acidosis (5) CARLOS (acute kidney injury) secondary to vasomotor nephropathy (6) Ileus-Chronic Ileus: Disposition: TO HOME OR SELFCARE Time spent for discharge: 35 MINS Core Measure Documentation - Palliative Care Palliative Care/ Comfort Measures: Not Applicable - Core Measures Any of the following diagnoses?: none Exam - Physical Exam Narrative exam: VITAL SIGNS: Reviewed. GENERAL: The patient appears normally developed, Vital signs as documented. HEAD: No signs of head trauma. EYES: Pupils are equal. Extraocular motions intact. EARS: Hearing grossly intact. MOUTH: Oropharynx is normal. NECK: No adenopathy, no JVD. CHEST: Chest with crackles breath sounds bilaterally. No wheezes, CARDIAC: Regular rate and rhythm. S1 and S2, without murmurs, gallops, or rubs. VASCULAR: No Edema. Peripheral pulses normal and equal in all extremities. ABDOMEN: Soft, non tender, distended. No rebound or guarding, and no masses palpated. Bowel Sounds normal. MUSCULOSKELETAL: Good range of motion of all major joints. Extremities without clubbing, cyanosis or edema. NEUROLOGIC EXAM: Alert and oriented x 3 No focal sensory or strength deficits. Patient has hearing speech challenges. Follows commands. PSYCHIATRIC: Mood normal. SKIN: detail exam as documented in skin assessment - Constitutional Vitals: Temp Pulse Resp BP Pulse Ox 98.8 F 92 H 17 93/59 97 10/21/19 06:04 10/21/19 06:04 10/21/19 06:04 10/21/19 06:04 10/21/19 08:42 Plan Activity: advance as tolerated, fall precautions Diet: low fat Special Instructions: record daily BP diary Follow up with: PRIMARY CARE, [Primary Care Provider] - 3-5 Days Prescriptions: Oseltamivir [Tamiflu] 75 mg PO BID #10 capsule
[2019-10-21] MEDS ORDERED: POTASSIUM CHLORIDE ER 20 MEQ TAB PO ONE ×2 (09:30→13:00)
[2019-10-21] MEDS: FLEET ENEMA PR SCH (09:43)
[2019-10-21] MEDS: FERROUS GLUCONATE 324 MG TAB PO SCH (09:43)
[2019-10-21] MEDS: OSELTAMIVIR 75 MG CAP PO SCH (09:44)
[2019-10-21] MEDS: ERYTHROMYCIN ETHYLSUCC SUSP 400 MG/10 ML ORAL LIQD PO SCH ×2 (09:45→13:06)
[2019-10-21] MEDS: HYDROcodone/HOMATROPINE 5-1.5MG /5 ML ORAL LIQD UNIT DOSE PO PRN (09:53)
[2019-10-21 15:34] VITALS: BP 94/56
== END 2019-10-21 15:40 | disposition home or self-care (01) ==
LOC: ED 08:53 → 3A 12:19
PROVIDERS: ADMIT Internal Medicine; ATTEND Internal Medicine
DX: K56.7 Ileus, unspecified (principal); R65.10 Systemic inflammatory response syndrome (SIRS) of non-infectious origin without acute organ dysfunction; N17.9 Acute kidney failure, unspecified; E87.2 Acidosis; J09.X2 Influenza due to identified novel influenza A virus with other respiratory manifestations; K56.609 Unspecified intestinal obstruction, unspecified as to partial versus complete obstruction; E43 Unspecified severe protein-calorie malnutrition; H91.90 Unspecified hearing loss, unspecified ear; Z98.890 Other specified postprocedural states
CPT/HCPCS: 36415; 70450; 71045; 74018; 80048; 80053; 81001; 81025; 82140; 82550; 82805; 82962; 83735; 85025; 85610; 87040; 87086; 87103; 87116; 87400; 93005; 93010; 94640; 96361; 96365; 96375; 96376; 99284; G0378; J0696; J2405; J7030; J7040

== ENCOUNTER 2020-01-02 11:05 | Emergency (ER) | payer MEDICAID ==
--- NOTE | 2020-01-02 12:20 | Event Note ---
ED Screening Note Date of service: 01/02/20 Time: 12:19 ED Screening Note: 24 y o female presents with abd pain and body aches and pain This initial assessment/diagnostic orders/clinical plan/treatment(s) is/are subject to change based on patients health status, clinical progression and re-assessment by fellow clinical providers in the ED. Further treatment and workup at subsequent clinical providers discretion. Patient/guardian urged not to elope from the ED as their condition may be serious if not clinically assessed and managed. Initial orders include: labs, ua
[2020-01-02 12:58] LABS: Basophils % (Auto) 0.4 % (0.0-1.8); Eosinophils # (Auto) 0.1 K/mm3 (0.0-0.4); Eosinophils % (Auto) 0.7 % (0.0-4.3); Hematocrit 39.6 % (30.3-42.9); Hemoglobin 13.3 gm/dl (10.1-14.3); Lymphocytes # (Auto) 1.5 K/mm3 (1.2-5.4); Lymphocytes % (Auto) 17.3 % (13.4-35.0); Mean Corpuscular HGB Conc 34 % (30-34); Mean Corpuscular Volume 92 fl (79-97); Monocytes # (Auto) 0.7 K/mm3 (0.0-0.8); Platelet Count 298 K/mm3 (140-440); Red Blood Count 4.29 M/mm3 (3.65-5.03); Red Cell Distribution Width 13.9 % (13.2-15.2)
[2020-01-02 13:29] LABS: Alanine Aminotransferase 17 units/L (7-56); Albumin 4.3 g/dL (3.9-5); BUN/Creatinine Ratio 21; Blood Urea Nitrogen 15 mg/dL (7-17); Calcium 9.5 mg/dL (8.4-10.2); Hemolysis Index 12
[2020-01-02] MEDS ORDERED: MORPHINE 2 MG/1 ML INJ IV ONE (13:31)
[2020-01-02] MEDS ORDERED: SODIUM CHLORIDE 0.9% 1000 ML 1,000 ML IV ONE (13:31)
[2020-01-02] MEDS ORDERED: ONDANSETRON 4 MG/2 ML INJ IV ONE (13:31)
--- NOTE | 2020-01-02 13:48 | Emergency Department Report ---
ED Extremity Problem HPI - General Chief complaint: Extremity Problem,Nontraumatic Stated complaint: PAIN IN LEGS/ABD PAIN Time Seen by Provider: 01/02/20 13:06 Source: patient Mode of arrival: Ambulatory Limitations: Other - History of Present Illness Initial comments: 24-year-old female with history of multiple bowel obstructions, status post colostomy with reversal, presents to ED with abdominal pain, abdominal distention for the last few days, and also bilateral lower leg pain x1 day. Patient denies fever, nausea, vomiting, cough, chest pain, shortness of breath. MD Complaint: extremity pain -: days(s) (1) Location: bilateral lower extremity History of Same: No -: No fever, No associated dyspnea, No associated chest pain Severity scale (0 -10): 5 Quality: aching Consistency: constant Improves with: immobilization Worsens with: walking, palpation Associated Symptoms: denies: chest pain, shortness of breath, fever - Related Data Home Medications Medication Instructions Recorded Confirmed Last Taken No Known Home Medications [No 01/02/20 01/02/20 Unknown Reported Home Medications] Allergies Allergy/AdvReac Type Severity Reaction Status Date / Time No Known Allergies Allergy Verified 01/02/20 13:12 ED Review of Systems ROS: Stated complaint: PAIN IN LEGS/ABD PAIN Other details as noted in HPI Comment: All other systems reviewed and negative Constitutional: denies: chills, fever ENT: denies: throat pain Respiratory: denies: cough, shortness of breath Cardiovascular: denies: chest pain Gastrointestinal: abdominal pain. denies: nausea, vomiting Musculoskeletal: as per HPI, myalgia ED Past Medical Hx - Past Medical History Previous Medical History?: Yes Hx Hypertension: No Hx Heart Attack/AMI: No Hx Congestive Heart Failure: No Hx Diabetes: No Hx Deep Vein Thrombosis: (unknown) Hx Liver Disease: No Hx Renal Disease: No Hx Seizures: No Hx Asthma: No Hx COPD: No Hx HIV: No Additional medical history: Deaf, bowel obs r/t volvulus - Surgical History Past Surgical History?: Yes Hx Pacemaker: No Hx Internal Defibrillator: No Additional Surgical History: colostomy x 2 - Social History Smoking Status: Never Smoker Substance Use Type: None - Medications Home Medications: Home Medications Medication Instructions Recorded Confirmed Last Taken Type No Known Home Medications [No 01/02/20 01/02/20 Unknown History Reported Home Medications] ED Physical Exam - General Limitations: Other General appearance: alert, in no apparent distress - Head Head exam: Present: atraumatic, normocephalic - Eye Eye exam: Present: normal appearance, EOMI - ENT ENT exam: Present: mucous membranes moist - Neck Neck exam: Present: normal inspection - Respiratory Respiratory exam: Present: normal lung sounds bilaterally. Absent: respiratory distress - Cardiovascular Cardiovascular Exam: Present: regular rate, normal rhythm - GI/Abdominal GI/Abdominal exam: Present: soft, distended, tenderness (mild diffuse) - Extremities Exam Extremities exam: Present: normal inspection, calf tenderness (bilaterally), other (no swelling or edema present) - Neurological Exam Neurological exam: Present: alert, oriented X3 - Psychiatric Psychiatric exam: Present: normal affect, normal mood - Skin Skin exam: Present: warm, dry, intact, normal color ED Course Vital Signs 01/02/20 13:29 Temperature 98.3 F Pulse Rate 87 Respiratory 18 Rate Blood Pressure 104/63 [Right] O2 Sat by Pulse 97 Oximetry - Consultations Consultation #1: 01/02/20 16:[address] Bowden who is familiar with the patient. He has reviewed patient's CT and states that this is normal appearance of patient's past CT scans. Does not recommend NG tube or admission. Patient should follow-up with her GI specialist at [place]. ED Medical Decision Making - Lab Data Result diagrams: 01/02/20 12:46 01/02/20 12:46 Critical care attestation.: If time is entered above; I have spent that time in minutes in the direct care of this critically ill patient, excluding procedure time. ED Disposition Clinical Impression: Lower extremity pain, bilateral, Abdominal pain Disposition: DC-01 TO HOME OR SELFCARE Is pt being admited?: No Condition: Stable Referrals: PRIMARY CARE, [Primary Care Provider] - 3-5 Days Time of Disposition: 16:18
[2020-01-02 14:01] LABS: Bacteria,Urine 1+ /HPF (Negative); Bilirubin,Urine NEG (Negative); Blood,Urine MOD (Negative); Color,Urine Yellow (Yellow); Mucus,Urine FEW /HPF; Protein,Urine <15 mg/dL mg/dL (Negative)
--- NOTE | 2020-01-02 16:02 | Cat Scan Report ---
CT ABDOMEN AND PELVIS WITH CONTRAST INDICATION / CLINICAL INFORMATION: pain, hx bowel obstruction. TECHNIQUE: Axial CT images were obtained through the abdomen and pelvis after 100 cc Omnipaque 300 milligrams pe rcent IV contrast. All CT scans at this location are performed using CT dose reduction for ALARA by means of automated exposure control. COMPARISON: March 29, 2019 FINDINGS: LOWER CHEST: No significant abnormality. LIVER: No significant abnormality. GALLBLADDER: No significant abnormality. BILE DUCTS: No significant abnormality. PANCREAS: No significant abnormality. SPLEEN: No significant abnormality. ADRENALS: No significant abnormality. RIGHT KIDNEY and URETER: No significant abnormality. LEFT KIDNEY and URETER: No significant abnormality. STOMACH and SMALL BOWEL: Persistent marked dilatation of the gastrointestinal tract COLON: Persistent marked dilatation of the gastrointestinal tract APPENDIX: Not identified PERITONEUM: . No free air. LYMPH NODES: No significant adenopathy. AORTA and ARTERIES: No significant abnormality. IVC and VEINS: No significant abnormality. URINARY BLADDER: No significant abnormality. REPRODUCTIVE ORGANS: No significant abnormality. ADDITIONAL FINDINGS: Large septated fluid collection is present in the pelvis SKELETAL SYSTEM: No significant abnormality. IMPRESSION: 1. Interval development of a large fluid collection with septations lower abdomen and pelvis 2. Persistent dilatation of multiple loops of gastrointestinal tract Signer Name: Poncho Ball MD Signed: 01/02/2020 3:57 PM Workstation Name: [id number]
[2020-01-02 16:49] VITALS: BP 99/72
== END 2020-01-02 16:49 | disposition home or self-care (01) ==
LOC: ED 11:05
DX: M79.662 Pain in left lower leg (principal); M79.661 Pain in right lower leg; H91.90 Unspecified hearing loss, unspecified ear; K56.699 Other intestinal obstruction unspecified as to partial versus complete obstruction; Z93.3 Colostomy status; R10.84 Generalized abdominal pain
CPT/HCPCS: 36415; 74177; 80053; 81001; 83690; 84703; 85025; 85379; 96374; 96375; 99284; J2270; J2405; J7030; Q9967

== ENCOUNTER 2020-08-06 22:14 | Emergency (ER) | payer MEDICAID ==
--- NOTE | 2020-08-06 22:33 | Emergency Department Report ---
ED Syncope HPI - General Chief Complaint: Abdominal Pain Stated Complaint: SYNCOPE Time Seen by Provider: 08/06/20 22:21 Source: patient, family, EMS - History of Present Illness Initial Comments: 25-year-old female the past medical history of intestinal dysfunction, multiple abdominal surgeries with history of colostomy placement x2, previous TPN infusions, and deafness presents to the hospital with complaints abdominal pain and 2 syncopal episodes as per EMS. Upon mother arrival to the ED she was able to provide further clarification. Patient has been fine all day. She had a sudden episode of epigastric abdominal pain that brought her down to her knees. No syncope reported. She has significant distress with shortness of breath during pain episode and mother could hear increased gastric sounds. Patient continues to have intermittent episodes of significant abdominal pain since arrival. Patient has not had any vomiting. She had 1 bowel movement yesterday and 3 today. - Related Data Allergies/Adverse Reactions: Allergies No Known Allergies Allergy (Verified 01/02/20 13:12) Home Medications: Ambulatory Orders HYDROcodone/APAP 5-325 [[place] 5/325] 1 each PO Q6HR PRN #14 tablet 08/07/20 Ondansetron [Zofran Odt] 4 mg PO Q8HR PRN #20 tab.rapdis 08/07/20 ED Review of Systems ROS: Stated complaint: SYNCOPE Other details as noted in HPI ED Past Medical Hx - Past Medical History Hx Hypertension: No Hx Heart Attack/AMI: No Hx Congestive Heart Failure: No Hx Diabetes: No Hx Deep Vein Thrombosis: (unknown) Hx Liver Disease: No Hx Renal Disease: No Hx Seizures: No Hx Asthma: No Hx COPD: No Hx HIV: No Additional medical history: Deaf, bowel obs r/t volvulus - Surgical History Hx Pacemaker: No Hx Internal Defibrillator: No Additional Surgical History: colostomy x 2 - Social History Smoking Status: Never Smoker Substance Use Type: None - Medications Home Medications: Home Medications Medication Instructions Recorded Confirmed Last Taken Type HYDROcodone/APAP 5-325 [[place] 1 each PO Q6HR PRN #14 tablet 08/07/20 Unknown Rx 5/325] Ondansetron [Zofran Odt] 4 mg PO Q8HR PRN #20 tab.rapdis 08/07/20 Unknown Rx ED Physical Exam - General Limitations: No Limitations - Other Other exam information: General: No acute distress Head: Atraumatic Eyes: normal appearance ENT: Moist mucous membranes Neck: Normal appearance, no midline tenderness Chest: Clear to auscultation bilaterally CV: Regular rate and rhythm Abdomen: Firm, distended, hypoactive bowel sounds, midline surgical scar, gen eralized Back: Normal inspection Extremity: Normal inspection, full range of motion Neuro: Alert O x 3, no facial asymmetry, speech clear, no gross motor sensory deficit Psych: Appropriate behavior Skin: No rash ED Course Vital Signs 08/06/20 08/06/20 08/06/20 22:37 22:45 23:16 Temperature 98.4 F Pulse Rate 100 H 101 H 96 H Respiratory 18 22 22 Rate Blood Pressure 94/68 108/72 Blood Pressure 104/72 [Left] O2 Sat by Pulse 94 93 93 Oximetry 08/06/20 08/07/20 08/07/20 23:56 00:00 00:15 Temperature Pulse Rate 78 93 H 83 Respiratory 15 26 H 23 Rate Blood Pressure 109/80 113/71 103/72 Blood Pressure [Left] O2 Sat by Pulse 94 Oximetry 08/07/20 08/07/20 00:52 01:00 Temperature Pulse Rate 74 82 Respiratory 15 23 Rate Blood Pressure 105/66 100/71 Blood Pressure [Left] O2 Sat by Pulse 95 Oximetry - Reevaluation(s) Reevaluation #1: 08/07/20 01:37 Patient did have improvement in her pain with initial dose of morphine but complains of 7/10 pain currently. Additional pain medicine provided. Patient d enies nausea. He feels she may be able to go home if her pain is controlled ED Medical Decision Making - Lab Data Result diagrams: 08/06/20 22:36 08/06/20 22:36 Lab Results 08/06/20 08/06/20 08/06/20 Range/Units 22:36 22:36 22:36 WBC 5.8 (4.5-11.0) K/mm3 RBC 3.47 L (3.65-5.03) M/mm3 Hgb 11.1 (10.1-14.3) gm/dl Hct 33.2 (30.3-42.9) % MCV 96 (79-97) fl MCH 32 (28-32) pg MCHC 33 (30-34) % RDW 14.3 (13.2-15.2) % Plt Count 260 (140-440) K/mm3 Lymph % (Auto) 19.7 (13.4-35.0) % [place] % (Auto) 9.4 H (0.0-7.3) % Eos % (Auto) 0.7 (0.0-4.3) % Baso % (Auto) 0.3 (0.0-1.8) % Lymph # (Auto) 1.1 L (1.2-5.4) K/mm3 [place] # (Auto) 0.5 (0.0-0.8) K/mm3 Eos # (Auto) 0.0 (0.0-0.4) K/mm3 Baso # (Auto) 0.0 (0.0-0.1) K/mm3 Seg Neutrophils % 69.9 (40.0-70.0) % Seg Neutrophils # 4.1 (1.8-7.7) K/mm3 PT (12.2-14.9) Sec. INR (0.87-1.13) APTT (24.2-36.6) Sec. Sodium 138 (137-145) mmol/L Potassium 3.6 (3.6-5.0) mmol/L Chloride 104.0 (98-107) mmol/L Carbon Dioxide 22 (22-30) mmol/L Anion Gap 16 mmol/L BUN 13 (7-17) mg/dL Creatinine 0.7 (0.6-1.2) mg/dL Estimated GFR > 60 ml/min BUN/Creatinine Ratio 19 % Glucose 88 (65-100) mg/dL Calcium 8.6 (8.4-10.2) mg/dL Total Bilirubin 0.20 (0.1-1.2) mg/dL AST 16 (5-40) units/L ALT 15 (7-56) units/L Alkaline Phosphatase 83 (35-129) units/L Total Protein 6.5 (6.3-8.2) g/dL Albumin 3.5 L (3.9-5) g/dL Albumin/Globulin Ratio 1.2 % Lipase 69 H (13-60) units/L HCG, Qual Negative (Negative) 08/06/20 Range/Units 22:36 WBC (4.5-11.0) K/mm3 RBC (3.65-5.03) M/mm3 Hgb (10.1-14.3) gm/dl Hct (30.3-42.9) % MCV (79-97) fl MCH (28-32) pg MCHC (30-34) % RDW (13.2-15.2) % Plt Count (140-440) K/mm3 Lymph % (Auto) (13.4-35.0) % [place] % (Auto) (0.0-7.3) % Eos % (Auto) (0.0-4.3) % Baso % (Auto) (0.0-1.8) % Lymph # (Auto) (1.2-5.4) K/mm3 [place] # (Auto) (0.0-0.8) K/mm3 Eos # (Auto) (0.0-0.4) K/mm3 Baso # (Auto) (0.0-0.1) K/mm3 Seg Neutrophils % (40.0-70.0) % Seg Neutrophils # (1.8-7.7) K/mm3 PT 13.9 (12.2-14.9) Sec. INR 1.06 (0.87-1.13) APTT 29.0 (24.2-36.6) Sec. Sodium (137-145) mmol/L Potassium (3.6-5.0) mmol/L Chloride (98-107) mmol/L Carbon Dioxide (22-30) mmol/L Anion Gap mmol/L BUN (7-17) mg/dL Creatinine (0.6-1.2) mg/dL Estimated GFR ml/min BUN/Creatinine Ratio % Glucose (65-100) mg/dL Calcium (8.4-10.2) mg/dL Total Bilirubin (0.1-1.2) mg/dL AST (5-40) units/L ALT (7-56) units/L Alkaline Phosphatase (35-129) units/L Total Protein (6.3-8.2) g/dL Albumin (3.9-5) g/dL Albumin/Globulin Ratio % Lipase (13-60) units/L HCG, Qual (Negative) - EKG Data -: EKG Interpreted by Mt EKG shows normal: sinus rhythm, ST-T waves (no stemi) Rate: normal (95) - Radiology Data Radiology results: report reviewed ABDOMEN 3 VIEW(S) INDICATION / CLINICAL INFORMATION: abd pain, hx of obstruction, syncope. COMPARISON: Prior x-ray on 10/19/2019 FINDINGS: TUBES / LINES: None. BOWEL GAS PATTERN: There is stable appearance of extensive colonic distention compared with the prior study. There is no significant small bowel distention. FREE AIR / EXTRALUMINAL GAS: None seen. ADDITIONAL FINDINGS: No significant additional findings. LUNGS: Lungs are underexpanded secondary to the colonic distention in the abdomen, similar to the prior exam. IMPRESSION: 1. Stable extensive colonic distention compared with prior studies, likely reflecting chronic ileus. CT ABDOMEN AND PELVIS WITH CONTRAST HISTORY: Abdominal distention and pain COMPARISON: Multiple prior CTs, most recently on 01/02/2020 and 03/29/2019. TECHNIQUE: Routine abdominal and pelvic CT exam performed following intravenous contrast administration. Patient received 100 mL IV Omnipaque 300. All CT scans at this location are performed using CT dose reduction for ALARA by means of automated exposure control. FINDINGS: CT ABDOMEN: Lung Bases: No significant abnormality. Liver: No significant abnormality. Biliary: No significant abnormality. Spleen: No significant abnormality. Unenlarged. Pancreas: No significant abnormality. Adrenals: No significant abnormality. Kidneys: No significant abnormality. Lymphatics: No lymphadenopathy. Vasculature: No significant abnormality. Bowel/Peritoneum: There is a large amount free fluid in the lower abdomen and pelvis, similar to the prior exam. There is also marked distention of the bowel, mostly colon. There are several nondistended loops of small bowel in the midabdomen. There is no free air, pneumatosis, or portal venous gas. CT PELVIC: : No significant abnormality. Lymphatics: No lymphadenopathy. Osseous Structures: No aggressive appearing osseous lesions. Additional Findings: None IMPRESSION: 1. Significant distention of multiple loops of bowel in the abdomen, mostly colon, which is similar to prior studies and likely reflects chronic colonic ileus. 2. Large volume of free fluid in the lower abdomen and pelvis is also similar to the prior study on 01/02/2020. - Medical Decision Making Patient CT findings show chronic bowel dilatation and abdominal fluid which is unchanged from previous. Patient does not have signs of an acute obstruction. Labs unremarkable. Patient is having bowel movements and does not have any nausea or vomiting. Patient did experience some improvement in pain with narcotic medication and was also provided Zofran empirically. Case discussed with both mother and patient and they feel comfortable attempting to go home since there are not any acute findings today. Patient sees a GI specialist at [facility]. Follow-up with this specialist encouraged. Patient will be prescribed [place] and Zofran for home and instructed to return if symptoms worsen Critical Care Time: No Critical care attestation.: If time is entered above; I have spent that time in minutes in the direct care of this critically ill patient, excluding procedure time. ED Disposition Clinical Impression: Dilated bowel, History of abdominal surgery, Abdominal pain Disposition: TO HOME OR SELFCARE Is pt being admited?: No Does the pt Need Aspirin: No Condition: Stable Instructions: Abdominal Pain (ED), Ileus (ED) Additional Instructions: Take the medication as prescribed. Follow-up with your doctor or doctor/clinic provided. Return if symptoms worsen as indicated by your discharge instructions. Prescriptions: HYDROcodone/APAP 5-325 [[place] 5/325] 1 each PO Q6HR PRN #14 tablet PRN Reason: Pain Ondansetron [Zofran Odt] 4 mg PO Q8HR PRN #20 tab.rapdis PRN Reason: Nausea And Vomiting Referrals: PRIMARY CARE,MD [Primary Care Provider] - 3-5 Days your, GI doctor at [facility] [Other] - 2-3 Days Time of Disposition: 03:13
[2020-08-06] MEDS ORDERED: ONDANSETRON 4 MG/2 ML INJ IV ONE (22:49)
[2020-08-06] MEDS ORDERED: MORPHINE 4 MG/1 ML INJ IV ONE (23:24)
[2020-08-06] MEDS ORDERED: SODIUM CHLORIDE 0.9% 1000 ML 1,000 ML IV ONE (23:28)
[2020-08-06 23:42] LABS: Alanine Aminotransferase 15 units/L (7-56); Albumin 3.5 g/dL (3.9-5); Blood Urea Nitrogen 13 mg/dL (7-17); Calcium 8.6 mg/dL (8.4-10.2); Hemolysis Index 8
[2020-08-06 23:49] LABS: BUN/Creatinine Ratio 19
[2020-08-06 23:54] LABS: Basophils % (Auto) 0.3 % (0.0-1.8); Eosinophils % (Auto) 0.7 % (0.0-4.3); Hematocrit 33.2 % (30.3-42.9); Hemoglobin 11.1 gm/dl (10.1-14.3); Lymphocytes # (Auto) 1.1 K/mm3 (1.2-5.4); Lymphocytes % (Auto) 19.7 % (13.4-35.0); Mean Corpuscular HGB Conc 33 % (30-34); Mean Corpuscular Volume 96 fl (79-97); Monocytes # (Auto) 0.5 K/mm3 (0.0-0.8); Monocytes % (Auto) 9.4 % (0.0-7.3); Platelet Count 260 K/mm3 (140-440); Red Blood Count 3.47 M/mm3 (3.65-5.03); Red Cell Distribution Width 14.3 % (13.2-15.2)
[2020-08-07 00:05] LABS: INR 1.06 (0.87-1.13)
--- NOTE | 2020-08-07 00:19 | XRay Report ---
ABDOMEN 3 VIEW(S) INDICATION / CLINICAL INFORMATION: abd pain, hx of obstruction, syncope. COMPARISON: Prior x-ray on 10/19/2019 FINDINGS: TUBES / LINES: None. BOWEL GAS PATTERN: There is stable appearance of extensive colonic distention compared with the prior study. There is no significant small bowel distention. FREE AIR / EXTRALUMINAL GAS: None seen. ADDITIONAL FINDINGS: No significant additional findings. LUNGS: Lungs are underexpanded secondary to the colonic distention in the abdomen, similar to the shawn or exam. IMPRESSION: 1. Stable extensive colonic distention compared with prior studies, likely reflecting chronic ileus. Signer Name: Antony Fernandes MD Signed: 08/07/2020 12:15 AM Workstation Name: [id number]
--- NOTE | 2020-08-07 01:02 | Cat Scan Report ---
CT ABDOMEN AND PELVIS WITH CONTRAST HISTORY: Abdominal distention and pain COMPARISON: Multiple prior CTs, most recently on 01/02/2020 and 03/29/2019. TECHNIQUE: Routine abdominal and pelvic CT exam performed following intravenous contrast administrat ion. Patient received 100 mL IV Omnipaque 300. All CT scans at this location are performed using CT d ose reduction for ALARA by means of automated exposure control. FINDINGS: CT ABDOMEN: Lung Bases: No significant abnormality. Liver: No significant abnormality. Biliary: No significant abnormality. Spleen: No significant abnormality. Unenlarged. Pancreas: No significant abnormality. Adrenals: No significant abnormality. Kidneys: No significant abnormality. Lymphatics: No lymphadenopathy. Vasculature: No significant abnormality. Bowel/Peritoneum: There is a large amount free fluid in the lower abdomen and pelvis, similar to the prior exam. There is also marked distention of the bowel, mostly colon. There are several nondistende d loops of small bowel in the midabdomen. There is no free air, pneumatosis, or portal venous gas. CT PELVIC: : No significant abnormality. Lymphatics: No lymphadenopathy. Osseous Structures: No aggressive appearing osseous lesions. Additional Findings: None IMPRESSION: 1. Significant distention of multiple loops of bowel in the abdomen, mostly colon, which is similar t o prior studies and likely reflects chronic colonic ileus. 2. Large volume of free fluid in the lower abdomen and pelvis is also similar to the prior study on . Signer Name: Antony Fernandes MD Signed: 08/07/2020 12:58 AM Workstation Name: [id number]
[2020-08-07] MEDS ORDERED: HYDROmorphone 1 MG/1 ML INJ IV ONE (01:37)
[2020-08-07] MEDS ORDERED: HYDROmorphone 1 MG/1 ML INJ ONE (01:38)
[2020-08-07 04:05] VITALS: BP 91/59
== END 2020-08-07 04:58 | disposition home or self-care (01) ==
LOC: ED 22:14
DX: K31.89 Other diseases of stomach and duodenum (principal); R10.13 Epigastric pain; R55 Syncope and collapse; R06.02 Shortness of breath; Z98.890 Other specified postprocedural states; Z79.899 Other long term (current) drug therapy
CPT/HCPCS: 36415; 74022; 74177; 80053; 83690; 84703; 85025; 85610; 85730; 93005; 96361; 96374; 96375; 99285; J1170; J2270; J2405; J7030; Q9967